=== PATIENT | female | born 1970 | race Caucasian/White ===

== ENCOUNTER 2020-09-12 15:01 | Outpatient (REF) | payer OTHER, SELFPAY ==
[2020-09-12 15:59] LABS: Creatinine Urine 15.86 mg/dL; Microalbumin Urine < 5.0 mg/L
== END 2020-09-12 15:02 | disposition home or self-care (01) ==
LOC: HO.LNP 15:01
PROVIDERS: Visit Provider Nurse Practitioner Family
DX: R35.0 Frequency of micturition (principal); E11.9 Type 2 diabetes mellitus without complications; N94.9 Unspecified condition associated with female genital organs and menstrual cycle
CPT/HCPCS: 82043; 87086; 88112

== ENCOUNTER 2022-02-14 07:42 | Outpatient (REF) | payer OTHER, SELFPAY ==
[2022-02-14 11:07] LABS: MANUAL DIFF FLAG NO
[2022-02-14 11:18] LABS: Appearance Urine CLEAR; Color Urine YELLOW; Glucose Urine UA NEG (NEG); Leukocyte Esterase Urine NEG (NEG); Nitrite Urine NEG (NEG); Specific Gravity - Urine 1.025 (1.005-1.025); Urine Blood NEG (NEG); Urine Ketones 5 MG/DL (NEG); Urine Protein TRACE MG/DL (NEG-TRACE)
[2022-02-14 11:19] LABS: Basophils Percent Auto 0.4 % (0-2); Eosinophils Absolute Auto 0.2 X10*3/uL (0.0-0.4); Eosinophils Percent Auto 2.2 % (0-4); Hematocrit 32.9 % (37.0-47.0); Hemoglobin 9.9 g/dl (12.0-16.0); Imm Gran Abs Auto 0.02 X10*3/uL (0.00-0.03); Imm Gran Pct Auto 0.3 % (0.0-0.4); Lymphocytes Absolute Auto 2.4 X10*3/uL (1.2-4.9); Lymphocytes Percent Auto 35.4 % (20-40); Mean Corpuscular HGB Conc 30.1 g/dl (31.0-35.0); Mean Corpuscular Hemoglobin 24.3 pg (27.0-33.0); Mean Corpuscular Volume 80.8 fL (80.0-98.0); Mean Platelet Volume 9.1 fL (9.4-12.3); Monocytes Absolute Auto 0.5 X10*3/uL (0.1-1.2); Monocytes Percent Auto 7.2 % (2-11); Neutrophils Absolute Auto 3.7 x10*3/uL (2.0-8.3); Neutrophils Percent Auto 54.5 % (45-73); Platelet Count 614 X10*3/uL (160-400); Red Blood Count 4.07 X10*6/uL (4.20-5.50); Red Cell Distribution Width 14.4 % (11.0-16.0); White Blood Count 6.8 X10*3/uL (4.8-10.8)
[2022-02-14 11:40] LABS: Iron 22 mcg/dL (30-160); Lipase 151 U/L (8-78); Percent Iron Saturation 5 % (15-50); Total Iron Binding Capacity 468 mcg/dL (228-428); Unsaturated Iron Binding 446 ug/dL
[2022-02-14 11:47] LABS: Estimated Average Glucose 154 mg/dL
[2022-02-14 11:48] LABS: Creatinine Urine 145.71 mg/dL
[2022-02-14 11:49] LABS: Ferritin 9 ng/mL (10-250)
[2022-02-14 11:51] LABS: HBS Num1 1.76 mIU/mL (0-7.99); HBsAGNum1 0.13 S/CO (0.00-0.99); HIV AB/AG Nonreactive (Nonreactive); HIV Num 1 0.06 S/CO (0.00-0.99); Hepatitis B Core Antibody Nonreactive (Nonreactive); Hepatitis B Surface Antigen Negative (Negative); ~HepC Num1 0.09 S/CO (0.00-0.79); ~Hepatitis B Surface Antibody NONREACTIVE (Nonreactive); ~Hepatitis C Antibody Nonreactive (Nonreactive)
[2022-02-14 12:03] LABS: Erythrocyte Sedimentation Rate 25 MM/HR (0-20)
[2022-02-14 12:08] LABS: Folate 6.3 ng/mL (> or = 4.0); Vitamin B12 261 pg/mL (200-900)
[2022-02-15 05:20] LABS: Hepatitis A Antibody IgM 0.32 Index (0-0.79); ~Hepatitis A Antibody IgM Nonreactive (Nonreactive)
== END 2022-02-14 07:43 | disposition home or self-care (01) ==
LOC: HO.HMGCLDS 07:42
PROVIDERS: Visit Provider Nurse Practitioner Family
DX: Z11.4 Encounter for screening for human immunodeficiency virus [HIV] (principal); R63.4 Abnormal weight loss; G25.81 Restless legs syndrome; E11.9 Type 2 diabetes mellitus without complications
CPT/HCPCS: 36415; 81003; 82043; 82607; 82728; 82746; 83036; 83540; 83690; 85025; 85652; 86140; 86704; 86706; 86709; 86803; 87340; 87389

== ENCOUNTER 2022-05-21 13:56 | Outpatient (REF) | payer OTHER, SELFPAY ==
[2022-05-21 17:22] LABS: Appearance Urine CLEAR; Color Urine YELLOW; Glucose Urine UA NEG (NEG); Leukocyte Esterase Urine TRACE (NEG); Nitrite Urine NEG (NEG); Specific Gravity - Urine >= 1.030 (1.005-1.025); Urine Blood 1+ (NEG); Urine Ketones NEG (NEG); Urine Protein NEG (NEG-TRACE)
[2022-05-21 17:45] LABS: Bacteria Urine 1+ /LPF; Squamous Epithelial Cell Urine 1+ /LPF
== END 2022-05-21 13:57 | disposition home or self-care (01) ==
LOC: HO.HMGCLDS 13:56
PROVIDERS: PCP Nurse Practitioner Family; Visit Provider Nurse Practitioner Family
DX: R35.0 Frequency of micturition (principal)
CPT/HCPCS: 81001; 87086

== ENCOUNTER → 2022-12-31 08:20 | Outpatient (BNVA) | payer OTHER, SELFPAY | PROVIDERS: PCP Nurse Practitioner Family; Visit Provider Psychiatry & Neurology Neurology | DX: G40.909 Epilepsy, unspecified, not intractable, without status epilepticus (principal) | CPT/HCPCS: 99202 ==

== ENCOUNTER 2023-02-10 09:08 | Outpatient (REF) | payer OTHER, SELFPAY ==
[2023-02-10 11:28] LABS: Appearance Urine Clear; Color Urine Yellow; Glucose Urine UA >=1000 mg/dL (Negative); Leukocyte Esterase Urine Negative (Negative); Nitrite Urine Negative (Negative); Specific Gravity - Urine >= 1.030 (1.005-1.025); UMIC TRIGGER UACC YES; Urine Blood Trace (Negative); Urine Ketones Negative (Negative); Urine Protein 30 (1+) mg/dL (Neg-Trace)
[2023-02-10 11:29] LABS: MANUAL DIFF FLAG NO
[2023-02-10 11:32] LABS: Bacteria Urine None Seen (None Seen); Hyaline Casts Urine 0-2 /LPF (0-2); RBC Urine 0-2 /HPF (0-2); Squamous Epithelial Cell Urine 0-2 /HPF (0-2); WBC Urine 0-5 /HPF (0-5)
[2023-02-10 11:37] LABS: Basophils Absolute Auto 0.1 X10*3/uL (0.0-0.2); Basophils Percent Auto 0.4 % (0-2); Eosinophils Absolute Auto 0.1 X10*3/uL (0.0-0.4); Eosinophils Percent Auto 0.7 % (0-4); Hematocrit 35.5 % (37.0-47.0); Hemoglobin 11.3 g/dl (12.0-16.0); Imm Gran Abs Auto 0.08 X10*3/uL (0.00-0.03); Imm Gran Pct Auto 0.6 % (0.0-0.4); Lymphocytes Absolute Auto 2.7 X10*3/uL (1.2-4.9); Lymphocytes Percent Auto 19.7 % (20-40); Mean Corpuscular HGB Conc 31.8 g/dl (31.0-35.0); Mean Corpuscular Volume 84.7 fL (80.0-98.0); Mean Platelet Volume 9.2 fL (9.4-12.3); Monocytes Absolute Auto 0.8 X10*3/uL (0.1-1.2); Monocytes Percent Auto 5.7 % (2-11); Neutrophils Absolute Auto 9.9 x10*3/uL (2.0-8.3); Neutrophils Percent Auto 72.9 % (45-73); Platelet Count 562 X10*3/uL (160-400); Red Blood Count 4.19 X10*6/uL (4.20-5.50); Red Cell Distribution Width 12.4 % (11.0-16.0); White Blood Count 13.6 X10*3/uL (4.8-10.8)
[2023-02-10 12:21] LABS: Creatinine Urine 102.55 mg/dL; Microalbum/Creatinine Ratio Ur 24.3 ug/mg cr
[2023-02-10 12:43] LABS: Alanine Aminotransferase < 5 U/L (0-31); Albumin Level 3.9 g/dL (3.5-5.0); Alkaline Phosphatase 111 U/L (39-117); Anion Gap 14 (12-20); Aspartate Amino Transferase 8 U/L (5-31); Bilirubin Total 0.2 mg/dL (0.0-1.0); Blood Urea Nitrogen 24 mg/dL (9-16); Calcium 9.2 mg/dL (8.4-10.2); Carbon Dioxide 31 mmol/L (22-29); Chloride 96 mmol/L (96-108); Cholesterol 110 mg/dL; Estimated Glomerular Filt Rate > 60; Glucose Fasting 205 mg/dL (60-99); HDL Cholesterol 46 mg/dL; LDL Cholesterol Calculated 52 mg/dl; Potassium 4.6 mmol/L (3.3-5.1); Sodium 136 mmol/L (135-145); TSH reflex Free T4 0.18 uIU/mL (0.32-4.0); Total Protein 6.5 g/dL (6.5-8.0); Triglycerides 62 mg/dL
[2023-02-10 12:47] LABS: Estimated Average Glucose 212 mg/dL
[2023-02-10 13:30] LABS: Free T4 (Free Thyroxine) 1.18 ng/dL (0.71-1.85)
== END 2023-02-10 09:09 | disposition home or self-care (01) ==
LOC: HO.HMGCLDS 09:08
PROVIDERS: PCP Nurse Practitioner Family; Visit Provider Nurse Practitioner Family
DX: E11.9 Type 2 diabetes mellitus without complications (principal)
CPT/HCPCS: 36415; 80053; 80061; 81001; 82043; 83036; 84439; 84443; 85025

== ENCOUNTER 2023-02-13 08:40 | Outpatient (REF) | payer OTHER, SELFPAY ==
[2023-02-13 11:25] LABS: Appearance Urine Cloudy; Color Urine Yellow; Glucose Urine UA 500 mg/dL (Negative); Leukocyte Esterase Urine Small (1+) (Negative); Nitrite Urine Negative (Negative); PH 5.5 (5.0-9.0); Specific Gravity - Urine 1.025 (1.005-1.025); UMIC TRIGGER UACC YES; Urine Blood Small (1+) (Negative); Urine Ketones Trace mg/dL (Negative); Urine Protein 100 (2+) mg/dL (Neg-Trace)
[2023-02-13 11:43] LABS: Bacteria Urine None Seen (None Seen); Hyaline Casts Urine >20 /LPF (0-2); Squamous Epithelial Cell Urine >20 /HPF (0-2); UACC Culture Trigger YES
[2023-02-13 12:33] LABS: Free T4 (Free Thyroxine) 1.13 ng/dL (0.71-1.85); TSH reflex Free T4 0.69 uIU/mL (0.32-4.0)
[2023-02-14 18:29] LABS: Thyroid Peroxidase Antibodies 1 IU/mL (<9)
[2023-02-17 23:48] LABS: A. Phagocytphilium DNA,RT-PCR NOT DETECTED (NOT DETECTED); Babesia Microti DNA, RT-PCR NOT DETECTED (NOT DETECTED); Borrelia Miyamotoi,DNA RT-PCR NOT DETECTED (NOT DETECTED); E.Chaffeensis DNA RT-PCR NOT DETECTED (NOT DETECTED); Lyme(Borrelia ssp)DNA RT-PCR NOT DETECTED (NOT DETECTED)
[2023-02-18 15:03] LABS: Thyrotropin Receptor Antibody <1.00 IU/L (<=2.00)
== END 2023-02-13 08:41 | disposition home or self-care (01) ==
LOC: HO.HMGCLDS 08:40
PROVIDERS: PCP Nurse Practitioner Family; Visit Provider Nurse Practitioner Family
DX: D72.829 Elevated white blood cell count, unspecified (principal); R94.6 Abnormal results of thyroid function studies; T14.8XXA Other injury of unspecified body region, initial encounter; W57.XXXA Bitten or stung by nonvenomous insect and other nonvenomous arthropods, initial encounter; R82.90 Unspecified abnormal findings in urine
CPT/HCPCS: 36415; 81001; 83520; 84439; 84443; 86376; 87086; 87798; 87801

== ENCOUNTER 2023-03-03 | Outpatient (REF) | payer OTHER, SELFPAY ==
--- NOTE | ~2023-03-03 | US_ITS ---
EXAMINATION: US THYROID CLINICAL INFORMATION: Low TSH level. COMPARISON: CT soft tissue neck with contrast 05/20/2019. Ultrasound thyroid 04/08/2017. TECHNIQUE: Linear transducer grayscale and color Doppler examination with attention to the region of the thyroid. FINDINGS: SIZE: Measurements of the thyroid lobes and nodules are given in sagittal, anteroposterior and transverse dimensions respectively. Right Thyroid Lobe: 4.9 x 1.6 x 1.4 cm, volume 5.7 mL. Previously 4.3 x 1.5 x 1.3 cm, volume 4.4 mL. Parenchyma: The gland echotexture is homogeneous. Thyroid vascularity is normal. Left Thyroid Lobe: 4.6 x 1.5 x 1.3 cm, volume 4.7 mL. Previously 4.5 x 1.5 x 1.4 cm, volume 4.9 mL. Parenchyma: The gland echotexture is homogeneous. Thyroid vascularity is normal. Isthmus: 0.3 cm in maximum AP dimension. Previously 0.2 cm. Estimated total number of nodules greater than or equal to 1 cm: 0. Gut Carrier nodules are described as follows: 1. Location: Right inferior. Size: 0.6 x 0.3 x 0.4 cm, volume 0.03 mL. Previously: 0.5 x 0.3 x 0.4 cm, volume 0.03 mL. Nodule characteristics: Composition: Solid (2). Echogenicity: Hypoechoic (2). Shape: Not taller than wide (0). Margins: Smooth (0). Echogenic Foci: None (0). ACR TI-RADS total points: 4 ACR TI-RADS category: 4 Significant change in size (>/= 20% in 2 dimensions and minimal increase of 2 mm or 50% or greater increase in volume): No Change in features: No Change in ACR TI-RADS risk category: No NODES: No lymphadenopathy is seen in the tissue surrounding the thyroid gland. US/US thyroid IMPRESSION: A 0.6 cm TR 4 right inferior thyroid nodule which is not significantly changed from 2017 and does not meet criteria for follow-up. Otherwise unremarkable thyroid ultrasound.. ACR TI-RADS RECOMMENDATION REFERENCE: Ultrasound-guided fine-needle aspiration, followup ultrasound, no further follow up. * TR1 (0 point) and TR2 (2 points): No FNA or follow up. * TR3 (3 points): FNA if more than or equal to 2.5 cm in maximum dimension, followup ultrasound in 1, 3 and 5 years if 1.5 to 2.4 cm in maximum dimension. * TR4 (4-6 points): FNA if more than or equal to 1.5 cm in maximum dimension, followup ultrasound in 1, 2, 3 and 5 years if 1 to 1.4 cm in maximum dimension. * TR5 (more than or equal to 7 points): FNA if more than or equal to 1 cm in maximum dimension, followup ultrasound every year for 5 years if 0.5 to 0.9 cm in maximum dimension. * TR3, TR4 or TR5 nodules that are below the size threshold for followup receive no follow up.
[2023-03-03 09:16] LABS: MANUAL DIFF FLAG NO
[2023-03-03 09:40] LABS: Basophils Percent Auto 0.3 % (0-2); Eosinophils Percent Auto 0.2 % (0-4); Hematocrit 40.5 % (37.0-47.0); Hemoglobin 12.9 g/dl (12.0-16.0); Imm Gran Abs Auto 0.02 X10*3/uL (0.00-0.03); Imm Gran Pct Auto 0.2 % (0.0-0.4); Lymphocytes Absolute Auto 2.9 X10*3/uL (1.2-4.9); Lymphocytes Percent Auto 28.6 % (20-40); Mean Corpuscular HGB Conc 31.9 g/dl (31.0-35.0); Mean Corpuscular Volume 84.7 fL (80.0-98.0); Mean Platelet Volume 8.6 fL (9.4-12.3); Monocytes Absolute Auto 0.7 X10*3/uL (0.1-1.2); Monocytes Percent Auto 6.7 % (2-11); Neutrophils Absolute Auto 6.5 x10*3/uL (2.0-8.3); Platelet Count 512 X10*3/uL (160-400); Red Blood Count 4.78 X10*6/uL (4.20-5.50); White Blood Count 10.2 X10*3/uL (4.8-10.8)
[2023-03-03 09:43] LABS: Urine Cytology See Pathology rpt
[2023-03-03 10:00] LABS: Appearance Urine Clear; Color Urine Dark Yellow; Glucose Urine UA Negative (Negative); Leukocyte Esterase Urine Small (1+) (Negative); Nitrite Urine Negative (Negative); PH 5.5 (5.0-9.0); Specific Gravity - Urine >= 1.030 (1.005-1.025); UMIC TRIGGER UA YES; Urine Blood Negative (Negative); Urine Ketones Trace mg/dL (Negative); Urine Protein 30 (1+) mg/dL (Neg-Trace)
[2023-03-03 10:07] LABS: Bacteria Urine None Seen (None Seen); RBC Urine 0-2 /HPF (0-2)
== END 2023-03-03 00:01 ==
LOC: HO.US
PROVIDERS: PCP Nurse Practitioner Family; Visit Provider Nurse Practitioner Family
DX: N39.0 Urinary tract infection, site not specified (principal); D72.829 Elevated white blood cell count, unspecified; R31.29 Other microscopic hematuria; R79.89 Other specified abnormal findings of blood chemistry
CPT/HCPCS: 36415; 76536; 81001; 85025; 87086; 88112

== ENCOUNTER 2023-05-21 08:44 | Outpatient (AMB) | payer OTHER, SELFPAY ==
[2023-05-21 09:04] VITALS: BP 120/72; PULSE 78; O2SAT 96; BMI 24.0
--- NOTE | 2023-05-21 09:04 | MHC.PC.OV ---
Vital Signs 05/21/23 09:04 Height 5 ft 0.75 in Weight 126 lb 4 oz BMI 24.0 BP 120/72 Blood Pressure Location Rt brachial Position Sitting Pulse 78 Pulse Source Pulse Oximeter Pulse Oximetry (%) 96 Oxygen Delivery Method Room Air Intake Visit Reasons: Annual PE Allergies moxifloxacin [From Avelox] Allergy (Unknown, Verified 05/21/23 09:06) hives Sulfa (Sulfonamide Antibiotics) Allergy (Unknown, Verified 05/21/23 09:06) hives doxycycline Adverse Reaction (Unknown, Verified 05/21/23 09:06) contraindicated Tobacco use date assessed: 05/21/23 Dental Screening Dental Screen Date: 05/21/23 Did you have a dental visit in the last 12 months?: Yes Did you have a dental problem in the last 6 months where you did not have access to dental care?: No Was dental information given to patient?: Patient has dentist HPI Annual PE HPI Details pt is here for a PE. diabetic. Currently on a statin. Knows s/s of hypoglycemia and how to correct it. Denies any polyuria, polydipsia, neuropathy. mammo ordered, pt missed last appointment, pt reports she will call. Pt reports having cologuard at home, has not performed it yet. Pt thinks she has a UTI, burning with urination, frequency. Pt reports her sugars have been perfect . Micro hem noted today in UA, sending for culture, previous urine cytology was neg, Hx of kidney stones, ordering a US. denies any fevers, chills, flank pains. [facility] Medical History Acute sinusitis Basal cell carcinoma Cervical neck pain with evidence of disc disease Chronic sinusitis Complaint of nasal congestion Diabetes Epilepsy Frontal headache Insomnia Nontraumatic incomplete tear of right rotator cuff Sinusitis, chronic Smoker Stroke Thyroid nodule Dawit's paralysis Ulcerative colitis Surgical History History of abdominal hysterectomy History of tonsillectomy and adenoidectomy Family History Father Esophageal cancer Prostate CA Mental health disorder Mother Uterine cancer Depression Mental health disorder Maternal Grandmother Kidney problem Maternal Grandfather Diabetes mellitus Stroke Throat cancer Myocardial infarction Paternal Grandfather No problems noted. Paternal Grandmother No problems noted. Brother No problems noted. Sister Mental health disorder Daughter No problems noted. Daughter No problems noted. Social History Housing: House Alcohol intake: current Alcohol intake frequency: a few times a month Patient Tobacco Use Status: Current everyday Tobacco user Cigarettes Per Day: 10 e-Cigarette/Vaping Use: Currently Using Second Hand Smoke Exposure: No service: No Current occupational status: disabled Cognitive needs: No Hearing needs: No Vision needs: No Questionnaire Thrive Questionnaire Date Thrive assessed: 02/13/23 MICAELA-7 AMB Questionnaire MICAELA-7 Date MICAELA - 7 assessed: 02/13/23 Source: Developed by Drs. Joss Gutierrez, Ami Hinton, Juan David Mercado and colleagues, with an educational emilie from [employer] Review of Systems Const Denies chills and Denies fever(s) Eyes Denies blurry vision ENT Denies vertigo, Denies dizziness and Denies sore throat Card Denies chest pain at rest, Denies chest pain with activity, Denies diaphoresis, Denies dyspnea and Denies dyspnea on exertion Resp Denies cough, Denies dyspnea, Denies dyspnea on exertion and Denies wheezing GI Denies abdominal pain, Denies melena, Denies hematochezia, Denies constipation, Denies diarrhea and Denies loose stools Denies hematuria Musc Denies numbness and Denies tingling Skin/Breast Denies lesions Neuro Denies vertigo, Denies dizziness, Denies numbness and Denies tingling Psych Denies anxiety, Denies depression, Denies homicidal ideation, Denies suicidal ideation and Denies other (substance abuse) Aller/Immun Denies wheezing Physical exam (Primary Care) Vital Signs: Last Vital Signs Pulse 78 05/21/23 09:04 BP 120/72 05/21/23 09:04 Pulse Ox 96 05/21/23 09:04 Oxygen Delivery Method Room Air 05/21/23 09:04 BMI result Body Mass Index 24.0 Tobacco/Smoking Status: Tobacco use Status Tobacco use date assessed 05/21/23 05/21/23 09:10 Patient Tobacco Use Status Current everyday Tobacco 05/21/23 09:04 e-Cigarette/Vaping Use Currently Using 05/21/23 09:04 Thrive Assessment: Date of Thrive Assessment Date Thrive assessed 02/13/23 05/21/23 09:04 Const General: cooperative Nutritional Appearance: well nourished Orientation/consciousness: patient oriented x3 HENME Other: bilat ear cerumen noted, after ear lavage Head: Yes normal to inspection, Yes normocephalic and Yes atraumatic Eyes General: appearance normal, both eyes and all related structures Alignment and Position: alignment normal and position normal Neck Neck: Yes normal visual inspection and Yes no lymphadenopathy Resp Effort & Inspection: normal respiratory effort Auscultation: clear to auscultation bilaterally Cardio Rate: regular rate Rhythm: regular rhythm Heart sounds: S1 normal heart sound present, S2 normal heart sound present and no murmurs GI Palpation (GI): Soft to palpation and nontender Auscultation: normal bowel sounds Skin Rashes: no rashes Neuro General: patient oriented x3, moves all extremities, no focal motor deficits and deep tendon reflexes 2+ bilaterally Romberg Test: Negative Extrem Right lower extremity: no edema Left lower extremity: no edema Psych Affect: normal affect Attitude: cooperative Thought process: Normal thought process present Results AMB Urinalysis, Automated UA Leukoctes 0 Babatunde/uL Last Edit by Marcela Tolentino CMA on 05/21/23 09:36 UA Nitrite Negative Last Edit by Marclea Tolentino CMA on 05/21/23 09:36 UA Urobilinogen 0.2 mg/dL Last Edit by Marcela Tolentino CMA on 05/21/23 09:36 UA Protein 0 mg/dL Last Edit by Marcela Tolentino CMA on 05/21/23 09:36 UA pH 6.0 Last Edit by Marcela Tolentino CMA on 05/21/23 09:36 UA Blood 25 Rocky/uL Last Edit by Marcela Tolentino CMA on 05/21/23 09:36 UA Specific [place] 1.015 Last Edit by Marcela Tolentino CMA on 05/21/23 09:36 UA Ketone Negative Last Edit by Marcela Tolentino CMA on 05/21/23 09:36 UA Bilirubin 0 mg/dL Last Edit by Marcela Tolentino CMA on 05/21/23 09:36 UA Glucose 0 mg/dL Last Edit by Marcela Tolentino CMA on 05/21/23 09:36 AMB Hemoglobin A1c AMB Hemoglobin A1c 6.7 % Last Edit by Marcela Tolentino CMA on 05/21/23 09:52 Results Reviewed Results Reviewed: Laboratory Last Values Hgb A1c (Clinic) 6.7 % (4.0-6.0) H 05/21/23 09:32 Urine pH (Auto) 6.0 05/21/23 09:32 Specific [place] (Auto) 1.015 05/21/23 09:32 Urine Protein (Auto) 0 mg/dL 05/21/23 09:32 Glucose (UA)(Auto) 0 mg/dL 05/21/23 09:32 Urine Ketones (Auto) Negative 05/21/23 09:32 Urine Blood (Auto) 25 Rocky/uL 05/21/23 09:32 Urine Nitrite (Auto) Negative 05/21/23 09:32 Urine Bilirubin (Auto) 0 mg/dL 05/21/23 09:32 Urine Urobilinogen (Auto) 0.2 mg/dL 05/21/23 09:32 Leukocyte Esterase (Auto) 0 Babatunde/uL 05/21/23 09:32 Assessment and Plan Assessment & Plan (1) Diabetes: Code(s): E11.9 - Type 2 diabetes mellitus without complications (2) Physical exam: Code(s): Z00.00 - Encounter for general adult medical examination without abnormal findings (3) Microscopic hematuria: Code(s): R31.29 - Other microscopic hematuria (4) Hx of renal calculi: Code(s): Z87.442 - Personal history of urinary calculi (5) UTI (urinary tract infection): Code(s): N39.0 - Urinary tract infection, site not specified (6) Impacted cerumen of both ears: Code(s): H61.23 - Impacted cerumen, bilateral (7) Vitamin D deficiency: Code(s): E55.9 - Vitamin D deficiency, unspecified Orders: Orders US retroperitoneal comp Today R31.29 - Other microscopic hematuria, Z87.442 - Personal history of urinary calculi Urine Culture Today N39.0 - Urinary tract infection, site not specified Comprehensive [place]. Panel Fast Today Z00.00 - Encounter for general adult medical examination without abnormal findings Lipid Panel Today Z00.00 - Encounter for general adult medical examination without abnormal findings TSH reflex Free T4 Today Z00.00 - Encounter for general adult medical examination without abnormal findings Complete Blood Count Auto Diff Today Z00.00 - Encounter for general adult medical examination without abnormal findings Vitamin D 25-OH Total Today E55.9 - Vitamin D deficiency, unspecified AMB Hemoglobin A1c Today E11.9 - Type 2 diabetes mellitus without complications, N39.0 - Urinary tract infection, site not specified AMB Urinalysis Automated Today N39.0 - Urinary tract infection, site not specified, R35.0 - Frequency of micturition Medications: New nitrofurantoin monohyd/m-cryst 100 mg (Macrobid) must administer with a meal/food 100 mg PO Q12H 10 caps 0RF 5 days Coding Level of Care Code Est Pt Prev Care 40-64y(37986) Diagnoses Diabetes E11.9 Physical exam Z00.00 Microscopic hematuria R31.29 Hx of renal calculi Z87.442 UTI (urinary tract infection) N39.0 Impacted cerumen of both ears H61.23 Vitamin D deficiency E55.9
== END 2023-05-21 11:10 | disposition home or self-care (01) ==
PROVIDERS: Visit Provider Nurse Practitioner Family
DX: Z00.00 Encounter for general adult medical examination without abnormal findings (principal); E11.9 Type 2 diabetes mellitus without complications; Z87.442 Personal history of urinary calculi; E55.9 Vitamin D deficiency, unspecified; R31.29 Other microscopic hematuria; N39.0 Urinary tract infection, site not specified; H61.23 Impacted cerumen, bilateral; R35.0 Frequency of micturition
CPT/HCPCS: 81003; 83036; 99396

== ENCOUNTER 2023-05-21 13:51 | Outpatient (REF) | payer OTHER, SELFPAY | END 2023-05-21 13:52 | disposition home or self-care (01) | LOC: HO.HMGCLNP 13:51 | PROVIDERS: Visit Provider Nurse Practitioner Family | DX: N39.0 Urinary tract infection, site not specified (principal) | CPT/HCPCS: 87086 ==

== ENCOUNTER 2023-06-24 12:57 | Outpatient (AMB) | payer OTHER, SELFPAY ==
--- NOTE | 2023-06-24 13:18 | A.OFFPC_ITS ---
Vital Signs 06/24/23 13:29 Height 5 ft 0.75 in Weight 129 lb 4 oz BMI 24.6 BP 110/64 Blood Pressure Location Lt brachial Position Sitting Pulse 85 Pulse Source Pulse Oximeter Temp 98.8 F Temp Source Oral Pulse Oximetry (%) 97 Oxygen Delivery Method Room Air Intake Visit Reasons: Covid symptoms/ sore [phone] Intake Note: pt has had a sore throat cough headache and ear ache for the last 3 days denies fever and today she started to loose her voice and feeling tired she has tried dayquil and nyquil with no relief Allergies moxifloxacin [From Avelox] Allergy (Unknown, Verified 05/21/23 09:06) hives Sulfa (Sulfonamide Antibiotics) Allergy (Unknown, Verified 05/21/23 09:06) hives doxycycline Adverse Reaction (Unknown, Verified 05/21/23 09:06) contraindicated Tobacco use date assessed: 05/21/23 HPI Covid symptoms/ sore [phone] HPI Details Pt c/o sneezing and congestion, was exposed to someone with covid. She denies any fever, chest pain, and shortness of breath. Pt does report intermittent chills and hot flashes. Will swab and COVID/flu/RSV and strep. [facility] Medical History (Updated 06/24/23 @ 14:47 by MIGUEL ANGEL Cardenas) Insomnia Frontal headache Complaint of nasal congestion Acute sinusitis Stroke Sinusitis, chronic Chronic sinusitis Nontraumatic incomplete tear of right rotator cuff Dawit's paralysis Cervical neck pain with evidence of disc disease Basal cell carcinoma Ulcerative colitis Thyroid nodule Diabetes Smoker Epilepsy Surgical History History of abdominal hysterectomy History of tonsillectomy and adenoidectomy Family History Father Esophageal cancer Prostate CA Mental health disorder Mother Uterine cancer Depression Mental health disorder Maternal Grandmother Kidney problem Maternal Grandfather Diabetes mellitus Stroke Throat cancer Myocardial infarction Paternal Grandfather No problems noted. Paternal Grandmother No problems noted. Brother No problems noted. Sister Mental health disorder Daughter No problems noted. Daughter No problems noted. Social History Housing: House Alcohol intake: current Alcohol intake frequency: a few times a month Patient Tobacco Use Status: Current everyday Tobacco user Cigarettes Per Day: 10 e-Cigarette/Vaping Use: Currently Using Second Hand Smoke Exposure: No service: No Current occupational status: disabled Cognitive needs: No Hearing needs: No Vision needs: No Questionnaire Thrive Questionnaire Date Thrive assessed: 02/13/23 MICAELA-7 AMB Questionnaire MICAELA-7 Date MICAELA - 7 assessed: 02/13/23 Source: Developed by Drs. Joss Gutierrez, Ami Hinton, Juan David Mercado and colleagues, with an educational emilie from [employer]. Review of Systems Const Reports as per HPI Physical exam (Primary Care) Vital Signs: Last Vital Signs Temp 98.8 F 06/24/23 13:29 Pulse 85 06/24/23 13:29 BP 110/64 06/24/23 13:29 Pulse Ox 97 06/24/23 13:29 Oxygen Delivery Method Room Air 06/24/23 13:29 BMI result Body Mass Index 24.6 Tobacco/Smoking Status: Tobacco use Status Tobacco use date assessed 05/21/23 06/24/23 13:21 Patient Tobacco Use Status Current everyday Tobacco 06/24/23 13:21 e-Cigarette/Vaping Use Currently Using 06/24/23 13:21 Thrive Assessment: Date of Thrive Assessment Date Thrive assessed 02/13/23 06/24/23 13:21 Const General: cooperative Orientation/consciousness: patient oriented x3 HENMT Ears: TM's normal bilaterally Neck Neck: Yes no lymphadenopathy Resp Effort & Inspection: normal respiratory effort Auscultation: clear to auscultation bilaterally Cardio Rate: regular rate Rhythm: regular rhythm Heart sounds: S1 normal heart sound present and S2 normal heart sound present Neuro General: patient oriented x3 Psych Appearance: grossly normal Mental Status: mental status grossly normal Speech and movement: Normal speech and movement present Affect: normal affect Attitude: cooperative Thought process: Normal thought process present Thought content: Normal thought content present Insight: Good insight present (Psych) Judgement: Good judgement present (Psych) Results AMB Rapid Strep AMB Rapid Strep Negative Last Edit by Marcela Tolentino CMA on 06/24/23 13 :57 Results Reviewed Results Reviewed: Laboratory Last Values Strep Scn Rapid Clinic Negative 06/24/23 13:55 Assessment and Plan Assessment & Plan (1) Illness: Code(s): R69 - Illness, unspecified Plan The patient agreed to the use of a senior medical billing specialist for this encounter. Scribed for MIGUEL ANGEL Wilkins by Mora Doss senior medical billing specialist, on 06/24/2023 at 13:30 EST. Orders: Orders SARS-CoV2/FLU/RSV Today R09.89 - Other specified symptoms and signs involving the circulatory and respiratory systems AMB Rapid Strep Screen Today Z13.9 - Encounter for screening, unspecified Coding Level of Care Code Est Pt Level 3 (12551) Diagnoses Illness R69
[2023-06-24 13:29] VITALS: BP 110/64; PULSE 85; TEMP 37.1; O2SAT 97; BMI 24.6
== END 2023-06-24 14:34 | disposition home or self-care (01) ==
PROVIDERS: PCP Nurse Practitioner Family; Visit Provider Nurse Practitioner Family
DX: J02.9 Acute pharyngitis, unspecified (principal); R51.9 Headache, unspecified; R69 Illness, unspecified
CPT/HCPCS: 87880; 99213

== ENCOUNTER 2023-06-24 16:08 | Outpatient (REF) | payer OTHER, SELFPAY ==
[2023-06-24 17:23] LABS: Influenza A PCR NEGATIVE (Negative); Influenza B PCR NEGATIVE (Negative); Resp Syncy Virus RNA Qual PCR NEGATIVE (Negative); SARS COV2 PCR INHOUSE NEGATIVE (Negative)
== END 2023-06-24 16:09 | disposition home or self-care (01) ==
LOC: HO.LNP 16:08
PROVIDERS: Visit Provider Nurse Practitioner Family
DX: R09.89 Other specified symptoms and signs involving the circulatory and respiratory systems (principal); Z20.822 Contact with and (suspected) exposure to COVID-19
CPT/HCPCS: 0241U

== ENCOUNTER 2023-07-28 08:48 | Outpatient (AMB) | payer OTHER, SELFPAY ==
[2023-07-28 09:59] VITALS: BP 122/78; PULSE 70; TEMP 36.7; O2SAT 97; BMI 24.8
--- NOTE | 2023-07-28 09:59 | MHC.OFFWIV ---
Intake Vital Signs 07/28/23 09:59 Height 5 ft 0.75 in Weight 130 lb BMI 24.8 BP 122/78 Blood Pressure Location Lt brachial Position Sitting Pulse 70 Pulse Source Pulse Oximeter Temp 98.0 F Temp Source Temporal Artery Scan Pulse Oximetry (%) 97 Intake Visit Reasons: EP UTI/Kidney [phone] Intake Note: pt is here for c/o possible uti Patient Tobacco Use Status: Current everyday Tobacco user Allergies moxifloxacin [From Avelox] Allergy (Unknown, Verified 07/28/23 10:28) hives Sulfa (Sulfonamide Antibiotics) Allergy (Unknown, Verified 07/28/23 10:28) hives doxycycline Adverse Reaction (Unknown, Verified 07/28/23 10:28) contraindicated Medication List - Last Reconciled 07/28/23 by Tyson Aiken MD albuterol sulfate 90 mcg/actuation 2 puffs inhalation Q6H PRN aripiprazole 10 mg PO DAILY 90 days aspirin 325 mg PO DAILY atorvastatin 40 mg PO BEDTIME blood sugar diagnostic (OneTouch Verio test strips) USE TO CHECK BLOOD GLUCOSE TWO TIMES A DAY BEFORE MEALS blood sugar diagnostic (OneTouch Verio test strips) check blood glucose tid ac and for hypo/hyperglycemic episodes ferrous sulfate 324 mg PO BID fexofenadine-pseudoephedrine 60-120 mg ER (Sofi-D 12 Hour) 1 tab PO .QD PRN fluticasone propionate 50 mcg/actuation 1 spray intranasal DAILY insulin degludec (Tresiba FlexTouch U-100 insulin) 14 units (0.14 mL) subcut BEDTIME 30 days lactobacillus combo no.11 (Probiotic) 1 cap PO DAILY lancets tid testing levetiracetam 1,500 mg (2 x 750 mg) PO BID metformin 1,000 mg PO BID pen needle, diabetic (Easy Touch) As directed to inject insulin once a day sertraline 150 mg (1.5 x 100 mg) PO DAILY suvorexant (Belsomra) 15 mg PO BEDTIME 30 days tizanidine 2 mg PO TID PRN Do you need a note to return to daycare/school/sports/work: Yes HPI EP UTI/Kidney [phone] HPI Details Patient presents for a sick visit. Reports symptoms of increased frequency of urination, burning on urination and discomfort in the suprapubic area. Symptoms started in the past few days. No fevers or chills. No nausea or vomiting. [facility] Medical History (Updated 07/28/23 @ 10:29 by Tyson Aiken MD) Insomnia Frontal headache Complaint of nasal congestion Acute sinusitis Stroke Sinusitis, chronic Chronic sinusitis Nontraumatic incomplete tear of right rotator cuff Dawit's paralysis Cervical neck pain with evidence of disc disease Basal cell carcinoma Ulcerative colitis Thyroid nodule Diabetes Smoker Epilepsy Surgical History (Reviewed 06/24/23 @ 14:46 by Zac De Leon [facility] History of abdominal hysterectomy History of tonsillectomy and adenoidectomy Family History Father Esophageal cancer Prostate CA Mental health disorder Mother Uterine cancer Depression Mental health disorder Maternal Grandmother Kidney problem Maternal Grandfather Diabetes mellitus Stroke Throat cancer Myocardial infarction Paternal Grandfather No problems noted. Paternal Grandmother No problems noted. Brother No problems noted. Sister Mental health disorder Daughter No problems noted. Daughter No problems noted. Social History Housing: House Alcohol intake: current Alcohol intake frequency: a few times a month Patient Tobacco Use Status: Current everyday Tobacco user Cigarettes Per Day: 10 e-Cigarette/Vaping Use: Currently Using Second Hand Smoke Exposure: No service: No Current occupational status: disabled Cognitive needs: No Hearing needs: No Vision needs: No Physical Exam Vital Signs: Last Vital Signs Temp 98.0 F 07/28/23 09:59 Pulse 70 07/28/23 09:59 BP 122/78 07/28/23 09:59 Pulse Ox 97 07/28/23 09:59 BMI result Body Mass Index 24.8 General: Yes bladder normal to palpation and Yes no CVA tenderness Bimanual exam- vagina & uterus: bladder normal to palpation Back/Spine/Pelvis Back: no CVA tenderness Results AMB Urinalysis, Automated UA Leukoctes 0 Babatunde/uL Last Edit by Srinivasa Lechuga CMA on 07/28/23 10:26 UA Nitrite Negative Last Edit by Srinivasa Lechuga CMA on 07/28/23 10:26 UA Urobilinogen 0.2 mg/dL Last Edit by Srinivasa Lechuga CMA on 07/28/23 10:26 UA Protein 15 mg/dL Last Edit by Srinivasa Lechuga CMA on 07/28/23 10:26 UA pH 5.5 Last Edit by Srinivasa Lechuga, JOSE on 07/28/23 10:26 UA Blood 10 Rocky/uL Last Edit by Srinivasa Lechuga CMA on 07/28/23 10:26 UA Specific [place] 1.025 Last Edit by Srinivasa Lechuga, JOSE on 07/28/23 10:26 UA Ketone Negative Last Edit by Srinivasa Lechuga CMA on 07/28/23 10:26 UA Bilirubin 0 mg/dL Last Edit by Srinivasa Lechuga CMA on 07/28/23 10:26 UA Glucose 0 mg/dL Last Edit by Srinivasa Lechuga CMA on 07/28/23 10:26 Results Reviewed Results Reviewed: Laboratory Last Values Urine pH (Auto) 5.5 07/28/23 10:25 Specific [place] (Auto) 1.025 07/28/23 10:25 Urine Protein (Auto) 15 mg/dL 07/28/23 10:25 Glucose (UA)(Auto) 0 mg/dL 07/28/23 10:25 Urine Ketones (Auto) Negative 07/28/23 10:25 Urine Blood (Auto) 10 Rocky/uL 07/28/23 10:25 Urine Nitrite (Auto) Negative 07/28/23 10:25 Urine Bilirubin (Auto) 0 mg/dL 07/28/23 10:25 Urine Urobilinogen (Auto) 0.2 mg/dL 07/28/23 10:25 Leukocyte Esterase (Auto) 0 Babatunde/uL 07/28/23 10:25 Assessment & Plan Assessment & Plan (1) UTI (urinary tract infection): Code(s): N39.0 - Urinary tract infection, site not specified Qualifiers: Urinary tract infection type: acute cystitis Hematuria presence: with hematuria Qualified Code(s): N30.01 - Acute cystitis with hematuria Plan: Take antibiotics and Pyridium as directed. Increase fluid intake. If symptoms of burning persist, new onset of fever or lower back pain, to follow-up at the clinic. Orders: Orders AMB Urinalysis Automated Today Z13.9 - Encounter for screening, unspecified Coding Level of Care Code Est Pt Level 3 (59670) Diagnoses Acute cystitis with hematuria N30.01 Urinary tract infection type: acute cystitis Hematuria presence: with hematuria
== END 2023-07-28 10:27 | disposition home or self-care (01) ==
PROVIDERS: PCP Nurse Practitioner Family; Visit Provider Internal Medicine
DX: Z13.9 Encounter for screening, unspecified (principal); N30.01 Acute cystitis with hematuria
CPT/HCPCS: 81003; 99213

== ENCOUNTER 2023-08-04 15:01 | Outpatient (AMB) | payer OTHER, SELFPAY ==
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
[2023-08-04 15:08] VITALS: BP 128/68; PULSE 81; O2SAT 93; BMI 25.2
== END 2023-08-04 17:11 | disposition home or self-care (01) ==
PROVIDERS: PCP Nurse Practitioner Family; Visit Provider Nurse Practitioner Family
DX: R35.0 Frequency of micturition (principal); R10.9 Unspecified abdominal pain; Z87.442 Personal history of urinary calculi
CPT/HCPCS: 81003; 99213

== ENCOUNTER 2023-08-04 15:38 | Outpatient (REF) | payer OTHER, SELFPAY ==
[2023-08-04 17:26] LABS: Appearance Urine Cloudy; Color Urine Yellow; Glucose Urine UA Negative (Negative); Leukocyte Esterase Urine Negative (Negative); Nitrite Urine Negative (Negative); PH 5.5 (5.0-9.0); Specific Gravity - Urine >= 1.030 (1.005-1.025); UMIC TRIGGER UA YES; Urine Blood Small (1+) (Negative); Urine Ketones Trace mg/dL (Negative); Urine Protein 100 (2+) mg/dL (Neg-Trace)
[2023-08-04 17:43] LABS: Bacteria Urine 1+ (None Seen); Calcium Oxalate Crystals Urine Present; Hyaline Casts Urine 0-2 /LPF (0-2); WBC Urine 0-5 /HPF (0-5)
== END 2023-08-04 15:39 | disposition home or self-care (01) ==
LOC: HO.LAB 15:38
PROVIDERS: Visit Provider Nurse Practitioner Family
DX: R10.9 Unspecified abdominal pain (principal); Z87.442 Personal history of urinary calculi
CPT/HCPCS: 81001; 87086

== ENCOUNTER 2023-08-05 12:17 | Outpatient (REF) | payer OTHER, SELFPAY ==
--- NOTE | ~2023-08-05 | US_ITS ---
EXAMINATION: US RETROPERITONEAL COMPLETE (RENAL) CLINICAL INFORMATION: Unspecified abdominal pain Flank pain History of urinary calculi. COMPARISON: CT scan abdomen and pelvis 05/27/2019, MRI abdomen 06/18/2019 TECHNIQUE: Real-time imaging of the kidneys and bladder. FINDINGS: RIGHT KIDNEY: 12.6 x 5.0 x 5.4 cm (SAG x AP x TRV. Lobulated contour, a normal variant. Renal cortical thickness is normal. No calculi or focal parenchymal lesions. There is a small amount of pelvicaliectasis without isidro hydronephrosis. LEFT KIDNEY: 10.1 x 5.7 x 5.3 cm (SAG x AP x TRV). Lobulated contour, a normal variant Renal cortical thickness is normal. No calculi or focal parenchymal lesions. No hydronephrosis. BLADDER: Well distended and normal. Bilateral ureteral jets are demonstrated. Prevoid bladder volume is 426 mL. Postvoid bladder volume is 19 mL. US/US retroperitoneal comp IMPRESSION: 1. No significant abnormality of the left kidney. 2. Small amount of pelvicaliectasis in the right kidney without isidro hydronephrosis. 3. Small post void residual.
[2023-08-05 13:34] LABS: MANUAL DIFF FLAG NO
[2023-08-05 13:55] LABS: Basophils Absolute Auto 0.1 X10*3/uL (0.0-0.2); Basophils Percent Auto 0.5 % (0-2); Eosinophils Absolute Auto 0.2 X10*3/uL (0.0-0.4); Eosinophils Percent Auto 1.9 % (0-4); Hematocrit 38.5 % (37.0-47.0); Hemoglobin 12.5 g/dl (12.0-16.0); Imm Gran Abs Auto 0.06 X10*3/uL (0.00-0.03); Imm Gran Pct Auto 0.5 % (0.0-0.4); Lymphocytes Absolute Auto 3.3 X10*3/uL (1.2-4.9); Lymphocytes Percent Auto 28.9 % (20-40); Mean Corpuscular HGB Conc 32.5 g/dl (31.0-35.0); Mean Corpuscular Hemoglobin 28.1 pg (27.0-33.0); Mean Corpuscular Volume 86.5 fL (80.0-98.0); Monocytes Absolute Auto 0.7 X10*3/uL (0.1-1.2); Monocytes Percent Auto 6.1 % (2-11); Neutrophils Absolute Auto 7.2 x10*3/uL (2.0-8.3); Neutrophils Percent Auto 62.1 % (45-73); Platelet Count 470 X10*3/uL (160-400); Red Blood Count 4.45 X10*6/uL (4.20-5.50); Red Cell Distribution Width 13.5 % (11.0-16.0); White Blood Count 11.6 X10*3/uL (4.8-10.8)
[2023-08-05 14:52] LABS: Alanine Aminotransferase 12 U/L (0-31); Albumin Level 4.3 g/dL (3.5-5.0); Alkaline Phosphatase 102 U/L (39-117); Anion Gap 14 (12-20); Aspartate Amino Transferase 13 U/L (5-31); Bilirubin Total 0.2 mg/dL (0.0-1.0); Blood Urea Nitrogen 15 mg/dL (9-16); Calcium 9.3 mg/dL (8.4-10.2); Carbon Dioxide 24 mmol/L (22-29); Chloride 105 mmol/L (96-108); Cholesterol 142 mg/dL (<200); Estimated Glomerular Filt Rate > 60; Glucose Fasting 222 mg/dL (60-99); HDL Cholesterol 71 mg/dL (>40); LDL Cholesterol Calculated 53 mg/dL (<100); Potassium 4.5 mmol/L (3.3-5.1); Sodium 138 mmol/L (135-145); Total Protein 7.4 g/dL (6.5-8.0); Triglycerides 91 mg/dL (<150)
[2023-08-05 15:11] LABS: TSH reflex Free T4 0.46 uIU/mL (0.32-4.0); Vitamin D 25-OH Total 29.3 ng/mL (>30)
[2023-08-05 16:43] LABS: Appearance Urine Clear; Color Urine Yellow; Glucose Urine UA 100 mg/dL (Negative); Leukocyte Esterase Urine Negative (Negative); Nitrite Urine Negative (Negative); PH 5.5 (5.0-9.0); Specific Gravity - Urine <= 1.005 (1.005-1.025); UMIC TRIGGER UA YES; Urine Blood Trace (Negative); Urine Ketones Negative (Negative); Urine Protein Negative (Neg-Trace)
[2023-08-05 18:25] LABS: Bacteria Urine None Seen (None Seen); Hyaline Casts Urine 0-2 /LPF (0-2); RBC Urine 0-2 /HPF (0-2); WBC Urine 0-5 /HPF (0-5)
== END 2023-08-05 12:18 | disposition home or self-care (01) ==
LOC: HO.HMGCX 12:17
PROVIDERS: PCP Nurse Practitioner Family; Visit Provider Nurse Practitioner Family
DX: Z00.00 Encounter for general adult medical examination without abnormal findings (principal); R10.9 Unspecified abdominal pain; E55.9 Vitamin D deficiency, unspecified; Z87.442 Personal history of urinary calculi; E78.5 Hyperlipidemia, unspecified; R94.6 Abnormal results of thyroid function studies
CPT/HCPCS: 36415; 76770; 80053; 80061; 81001; 82306; 84443; 85025

== ENCOUNTER 2023-08-20 08:06 | Outpatient (REF) | payer OTHER, SELFPAY ==
[2023-08-20 11:20] LABS: Appearance Urine Clear; Color Urine Yellow; Glucose Urine UA Negative (Negative); Leukocyte Esterase Urine Negative (Negative); Nitrite Urine Negative (Negative); PH 5.5 (5.0-9.0); UMIC TRIGGER UA YES; Urine Blood Trace (Negative); Urine Ketones Negative (Negative); Urine Protein Negative (Neg-Trace)
[2023-08-20 11:24] LABS: Bacteria Urine None Seen (None Seen); Hyaline Casts Urine 0-2 /LPF (0-2); RBC Urine 0-2 /HPF (0-2); Squamous Epithelial Cell Urine 0-2 /HPF (0-2); WBC Urine 0-5 /HPF (0-5)
== END 2023-08-20 08:07 | disposition home or self-care (01) ==
LOC: HO.HMGCLDS 08:06
PROVIDERS: PCP Nurse Practitioner Family; Visit Provider Nurse Practitioner Family
DX: R30.0 Dysuria (principal)
CPT/HCPCS: 81001; 87086

== ENCOUNTER 2023-10-08 08:49 | Outpatient (REF) | payer OTHER, SELFPAY ==
[2023-10-08 16:55] LABS: Urine Cytology See Pathology rpt
== END 2023-10-08 08:50 | disposition home or self-care (01) ==
LOC: HO.LNP 08:49
PROVIDERS: PCP Nurse Practitioner Family; Visit Provider Nurse Practitioner Family
DX: R31.29 Other microscopic hematuria (principal); R39.15 Urgency of urination; Z79.82 Long term (current) use of aspirin; Z79.899 Other long term (current) drug therapy
CPT/HCPCS: 81003; 88112; 99202

== ENCOUNTER 2023-10-08 08:49 | Outpatient (AMB) | payer OTHER, SELFPAY ==
--- NOTE | 2023-10-08 08:57 | MHC.OFFVIS ---
Intake Intake Visit Reasons: Micro hematuria Intake Note: New Patient presents for initial visit for micro hematuria Urology Medications: none Blood Thinner: aspirin Smoker: yes, 30yrs Cash Shortage Investigator Required: No Accompanied by: daughters Allergies moxifloxacin [From Avelox] Allergy (Unknown, Verified 10/09/23 19:41) hives Sulfa (Sulfonamide Antibiotics) Allergy (Unknown, Verified 10/09/23 19:41) hives doxycycline Adverse Reaction (Unknown, Verified 10/09/23 19:41) contraindicated Medication List - Last Reconciled 10/09/23 by FREDERICK JuddP- albuterol sulfate 90 mcg/actuation 2 puffs inhalation Q6H PRN aripiprazole 10 mg PO DAILY 90 days aspirin 325 mg PO DAILY atorvastatin 40 mg PO BEDTIME blood sugar diagnostic (Nexstimuch Verio test strips) check blood glucose tid ac and for hypo/hyperglycemic episodes ferrous sulfate 324 mg PO BID fexofenadine-pseudoephedrine 60-120 mg ER (Sofi-D 12 Hour) 1 tab PO .QD PRN fluticasone propionate 50 mcg/actuation 1 spray intranasal DAILY insulin degludec (Tresiba FlexTouch U-100 insulin) 14 units (0.14 mL) subcut BEDTIME lactobacillus combo no.11 (Probiotic) 1 cap PO DAILY lancets tid testing levetiracetam 1,500 mg (2 x 750 mg) PO BID metformin 1,000 mg PO BID pen needle, diabetic (Easy Touch) As directed to inject insulin once a day phenazopyridine (Pyridium) 200 mg PO TID 3 days sertraline 150 mg (1.5 x 100 mg) PO DAILY suvorexant (Belsomra) 15 mg PO BEDTIME 30 days HPI HPI Comments History of Present Illness Details Lupe is a very pleasant 53-year-old female patient of who was accompanied by her daughters at today's office visit. She has a past medical history of insomnia, headaches, stroke, chronic sinusitis, basal cell carcinoma, ulcerative colitis, diabetes, nicotine dependence, and epilepsy. She presents to the office today as a new patient for microscopic hematuria. When asked patient reports a longstanding history of nicotine dependence of over 30 years. She reports to be smoking approximately 1 pack per day. She denies any known chemical exposure. She currently denies any bothersome urinary issues or concerns. She denies urinary urgency, urinary frequency, incontinence, nocturia, hematuria, dysuria, foul smelling urine, changes to urinary stream, flank pain, fever, and or chills. She is happy with her current voiding parameters. In office urinalysis results reviewed with the patient today microscopic hematuria noted. Discussed at length potential causes of microscopic hematuria as well as further microscopic hematuria workup with in office cystoscopy, CT urogram, and urine cytology. Discussed risks and benefits of further workup versus surveillance monitoring. All questions were answered. [facility] Medical History Insomnia Frontal headache Complaint of nasal congestion Acute sinusitis Stroke Sinusitis, chronic Chronic sinusitis Nontraumatic incomplete tear of right rotator cuff Dawit's paralysis Cervical neck pain with evidence of disc disease Basal cell carcinoma Ulcerative colitis Thyroid nodule Diabetes Smoker Epilepsy Surgical History History of abdominal hysterectomy History of tonsillectomy and adenoidectomy Family History Father Esophageal cancer Prostate CA Mental health disorder Mother Uterine cancer Depression Mental health disorder Maternal Grandmother Kidney problem Maternal Grandfather Diabetes mellitus Stroke Throat cancer Myocardial infarction Paternal Grandfather No problems noted. Paternal Grandmother No problems noted. Brother No problems noted. Sister Mental health disorder Daughter No problems noted. Daughter No problems noted. Social History Housing: House Alcohol intake: current Alcohol intake frequency: a few times a month Patient Tobacco Use Status: Current everyday Tobacco user Cigarettes Per Day: 10 e-Cigarette/Vaping Use: Currently Using Second Hand Smoke Exposure: No service: No Current occupational status: disabled Cognitive needs: No Hearing needs: No Vision needs: No Review of Systems Const Reports as per HPI Eyes Reports no additional complaints ENT Reports as per HPI Card Reports as per HPI Resp Reports as per HPI GI Reports as per HPI Reports as per HPI Musc Reports no additional complaints Neuro Reports as per HPI Psych Reports no additional complaints Endo Reports as per HPI Physical Exam Const General: cooperative, comfortable, no acute distress, well developed, alert and awake Orientation/consciousness: patient oriented x3 HEENT Head: Yes normal to inspection, Yes normocephalic and Yes atraumatic Ears: hearing grossly normal bilaterally Eyes General: appearance normal, both eyes and all related structures Neck Neck: Yes normal visual inspection and Yes trachea midline Chest Chest palpation & inspection: normal inspection of the chest Resp Effort & Inspection: normal respiratory effort and able to speak in complete sentences Cardio Rate: regular rate GI Inspection: Yes normal to inspection General: Yes no CVA tenderness Back/Spine/Pelvis Back: no CVA tenderness Skin General skin exam: no rashes or lesions noted Neuro General: patient oriented x3 Extrem General: Yes normal to inspection Psych Appearance: grossly normal and well kempt Mental Status: mental status grossly normal Speech and movement: Normal speech and movement present and Clear speech present Affect: normal affect Attitude: cooperative Thought process: Normal thought process present Thought content: Normal thought content present Results AMB Urinalysis, Automated UA Leukoctes 0 Babatunde/uL Last Edit by [employer] on 10/08/23 09:15 UA Nitrite Negative Last Edit by [employer] on 10/08/23 09:15 UA Urobilinogen 0.2 mg/dL Last Edit by [employer] on 10/08/23 09:15 UA Protein 0 mg/dL Last Edit by [employer] on 10/08/23 09:15 UA pH 6.0 Last Edit by [employer] on 10/08/23 09:15 UA Blood 25 Rocky/uL Last Edit by [employer] on 10/08/23 09:15 UA Specific [place] 1.015 Last Edit by [employer] on 10/08/23 09:15 UA Ketone Negative Last Edit by [employer] on 10/08/23 09:15 UA Bilirubin 0 mg/dL Last Edit by [employer] on 10/08/23 09:15 UA Glucose 0 mg/dL Last Edit by [employer] on 10/08/23 09:15 Results Reviewed Results Reviewed: Laboratory Last Values Urine pH (Auto) 6.0 10/08/23 09:01 Specific [place] (Auto) 1.015 10/08/23 09:01 Urine Protein (Auto) 0 mg/dL 10/08/23 09:01 Glucose (UA)(Auto) 0 mg/dL 10/08/23 09:01 Urine Ketones (Auto) Negative 10/08/23 09:01 Urine Blood (Auto) 25 [place]/uL 10/08/23 09:01 Urine Nitrite (Auto) Negative 10/08/23 09:01 Urine Bilirubin (Auto) 0 mg/dL 10/08/23 09:01 Urine Urobilinogen (Auto) 0.2 mg/dL 10/08/23 09:01 Leukocyte Esterase (Auto) 0 Babatunde/uL 10/08/23 09:01 Assessment & Plan Assessment & Plan (1) Microscopic hematuria: Code(s): R31.29 - Other microscopic hematuria Plan In office urinalysis results reviewed with the patient today; as noted above; will send for urine cytology. Online discussed at length potential causes of microscopic hematuria; discussed further workup with CT urogram, cytology, and in office cystoscopy; discussed risks and benefits of surveillance monitoring verses further microscopic hematuria workup. She currently denies any bothersome urinary issues or concerns. Discussed and stressed the importance of limiting/quitting smoking for overall health and well-being. Will obtain CT urogram for further assessment evaluation. BUN and creatinine ordered for imaging. Follow-up in office cystoscopy with labs and imaging to be completed prior; or sooner with any issues, concerns, and or questions. Orders: Orders AMB Urinalysis Automated 10/08/23 Z13.9 - Encounter for screening, unspecified Blood Urea Nitrogen 10/08/23 R39.15 - Urgency of urination Creatinine 10/08/23 R39.15 - Urgency of urination Urine Cytology 10/08/23 R31.29 - Other microscopic hematuria CT urogram 10/08/23 F17.200 - Nicotine dependence, unspecified, uncomplicated, R31.29 - Other microscopic hematuria Patient Instructions: The patient had an opportunity to ask questions regarding the treatment plan. All questions were answered. Physical exam, labs, and imaging were discussed and reviewed in detail. As well as risks, benefits, and discussion of treatment choices. No major barriers to understanding were identified. The patient expressed understanding and agreement with the above treatment plan. The patient was made aware they should contact our office by phone for worsening of their current condition, the appearance of new symptoms, or with any questions or concerns. Compliance is encouraged with any medications and follow up testing that is ordered. It is a privilege to be allowed the opportunity to participate in? your urological care.? Again, if you have any questions or concerns If you have any questions or concerns please do not hesitate to contact me. The office is [phone]. This note is constructed using voice recognition software. While every effort has been made to ensure accuracy slicing machine operator errors may have been included. Yours sincerely, MIGUEL ANGEL Judd Coding Level of Care Code New Pt Level 3 (30224) Diagnoses Microscopic hematuria R31.29
== END 2023-10-08 09:38 | disposition home or self-care (01) ==
PROVIDERS: PCP Nurse Practitioner Family; Visit Provider Nurse Practitioner Family
DX: R31.29 Other microscopic hematuria (principal)
CPT/HCPCS: 99203

== ENCOUNTER 2023-11-10 13:04 | Outpatient (REF) | payer OTHER, SELFPAY ==
[2023-11-10 16:03] LABS: MANUAL DIFF FLAG NO
[2023-11-10 16:03] LABS: Appearance Urine Cloudy; Color Urine Dark Yellow; Glucose Urine UA Negative (Negative); Leukocyte Esterase Urine Negative (Negative); Nitrite Urine Negative (Negative); Specific Gravity - Urine >= 1.030 (1.005-1.025); Urine Blood Negative (Negative); Urine Ketones Trace mg/dL (Negative); Urine Protein Trace mg/dL (Neg-Trace)
[2023-11-10 16:22] LABS: Basophils Absolute Auto 0.1 X10*3/uL (0.0-0.2); Basophils Percent Auto 0.5 % (0-2); Eosinophils Absolute Auto 0.2 X10*3/uL (0.0-0.4); Eosinophils Percent Auto 1.9 % (0-4); Hematocrit 39.2 % (37.0-47.0); Imm Gran Abs Auto 0.05 X10*3/uL (0.00-0.03); Imm Gran Pct Auto 0.5 % (0.0-0.4); Lymphocytes Absolute Auto 3.6 X10*3/uL (1.2-4.9); Lymphocytes Percent Auto 35.8 % (20-40); Mean Corpuscular HGB Conc 33.2 g/dl (31.0-35.0); Mean Corpuscular Hemoglobin 29.9 pg (27.0-33.0); Mean Corpuscular Volume 90.1 fL (80.0-98.0); Mean Platelet Volume 9.5 fL (9.4-12.3); Monocytes Absolute Auto 0.7 X10*3/uL (0.1-1.2); Monocytes Percent Auto 6.6 % (2-11); Neutrophils Absolute Auto 5.6 x10*3/uL (2.0-8.3); Neutrophils Percent Auto 54.7 % (45-73); Platelet Count 513 X10*3/uL (160-400); Red Blood Count 4.35 X10*6/uL (4.20-5.50); Red Cell Distribution Width 12.7 % (11.0-16.0); White Blood Count 10.2 X10*3/uL (4.8-10.8)
[2023-11-10 16:38] LABS: Alanine Aminotransferase 13 U/L (0-31); Albumin Level 4.2 g/dL (3.5-5.0); Alkaline Phosphatase 95 U/L (39-117); Anion Gap 15 (12-20); Aspartate Amino Transferase 12 U/L (5-31); Bilirubin Total 0.2 mg/dL (0.0-1.0); Blood Urea Nitrogen 16 mg/dL (9-16); Calcium 9.3 mg/dL (8.4-10.2); Carbon Dioxide 26 mmol/L (22-29); Chloride 103 mmol/L (96-108); Cholesterol 180 mg/dL (<200); Estimated Glomerular Filt Rate > 60; Glucose Fasting 123 mg/dL (60-99); HDL Cholesterol 87 mg/dL (>40); LDL Cholesterol Calculated 73 mg/dL (<100); Potassium 4.2 mmol/L (3.3-5.1); Sodium 140 mmol/L (135-145); Total Protein 7.3 g/dL (6.5-8.0); Triglycerides 100 mg/dL (<150)
[2023-11-10 16:41] LABS: TSH reflex Free T4 0.36 uIU/mL (0.32-4.0)
== END 2023-11-10 13:05 | disposition home or self-care (01) ==
LOC: HO.HMGCLDS 13:04
PROVIDERS: PCP Nurse Practitioner Family; Referring Provider Nurse Practitioner Family; Visit Provider Nurse Practitioner Family
DX: Z00.00 Encounter for general adult medical examination without abnormal findings (principal); Z13.220 Encounter for screening for lipoid disorders; Z13.29 Encounter for screening for other suspected endocrine disorder; R39.15 Urgency of urination
CPT/HCPCS: 36415; 80053; 80061; 81003; 84443; 85025

== ENCOUNTER 2023-11-19 08:20 | Outpatient (REF) | payer OTHER, SELFPAY ==
--- NOTE | ~2023-11-19 | CT_ITS ---
EXAMINATION: CT ABDOMEN AND PELVIS WITHOUT AND WITH CONTRAST CLINICAL INFORMATION: Microscopic hematuria COMPARISON: Previous renal ultrasound July 2023, CT scan of the abdomen and pelvis May 2019 and MRI June 2019 TECHNIQUE: Noncontrast CT of the abdomen and pelvis is performed followed by split bolus contrast-enhanced images using 100 mL Omnipaque 350 contrast.? Postcontrast imaging is performed during the combined nephrogram and excretion phase. Sagittal and coronal reformatted images were obtained on the technologist's workstation for both the precontrast and postcontrast phases. This CT examination was performed using dose optimization techniques as appropriate, variously including the following: *Automated exposure control *Adjustment of mA and/or kV according to patient size (this includes techniques or standardized protocols for targeted exams where dose is matched to indication/reason for exam; i.e. extremities or head) *Use of iterative reconstruction technique DLP: 521 mGy-cm FINDINGS: LUNG BASES: The visualized lung bases are unremarkable. LIVER, GALLBLADDER, AND BILIARY TREE: The liver is normal in size, shape, and attenuation. No focal hepatic lesion or biliary ductal dilatation is present. May be a tiny gallstone in the gallbladder. The gallbladder is otherwise unremarkable. PANCREAS: Unremarkable. SPLEEN: Unremarkable. ADRENAL GLANDS: Slight thickening of the posterior limb of the left adrenal gland similar to prior exam. Right adrenal gland is unremarkable. KIDNEYS AND URETERS: The kidneys are normal in size, shape, and attenuation. No hydronephrosis, hydroureter, or calculi seen. The collecting systems are normal. The ureters are normal. No perinephric stranding. BLADDER: Unremarkable. GASTROINTESTINAL TRACT: Mild diverticulosis of the colon. No evidence of diverticulitis. The small and large bowel are otherwise unremarkable. The appendix is not seen. ABDOMINAL WALL: No significant hernia is appreciated. LYMPH NODES: Normal. VASCULAR: Unremarkable. PELVIC VISCERA: Uterus not seen and may been removed. No pelvic mass. OSSEUS STRUCTURES: Unremarkable. CT/CT urogram IMPRESSION: Normal CT IVP. No cause of hematuria seen. Mild diverticulosis of the colon. Tiny gallstone in the gallbladder. Stable thickening of the posterior limb of the left adrenal gland from prior exams.
[2023-11-19] MEDS: iohexoL 350 MG/ML 100 ML INFUS..BTL IV (09:39)
== END 2023-11-19 08:21 | disposition home or self-care (01) ==
LOC: HO.CT 08:20
PROVIDERS: PCP Nurse Practitioner Family; Visit Provider Nurse Practitioner Family
DX: R31.29 Other microscopic hematuria (principal); F17.200 Nicotine dependence, unspecified, uncomplicated
CPT/HCPCS: 74178; Q9967

== ENCOUNTER 2023-12-17 14:36 | Outpatient (AMB) | payer OTHER, SELFPAY ==
--- NOTE | 2023-12-17 14:37 | A.OFFVIS_ITS ---
Intake Intake Visit Reasons: CT Urogram Results (confirmed) Intake Note: Patient presents via phone for CT Urogram Results: Urology Medications: none Blood Thinner: aspirin Smoker: yes, 30yrs Pharmacy Account Director Required: No Accompanied by: daughters Allergies moxifloxacin [From Avelox] Allergy (Unknown, Verified 10/09/23 19:41) hives Sulfa (Sulfonamide Antibiotics) Allergy (Unknown, Verified 10/09/23 19:41) hives doxycycline Adverse Reaction (Unknown, Verified 10/09/23 19:41) contraindicated HPI HPI Comments History of Present Illness Details 12/17/2023--Lupe is a 53-year-old female who is being evaluated for microscopic hematuria. Comorbidity nicotine dependence, the patient smokes cigarettes daily. She presents for telehealth visit (video attempted) to review CT scan results. I have reviewed the CT urogram that was performed on 11/19/2023. Kidneys within normal limits, no masses renal calculi visualized, bladder unremarkable. Also reviewed urine cytology performed on 10/01/2023 which was negative for malignant cells. Plan will be to have her follow-up in the office for office cystoscopy. Discussed recommendations for nicotine cessation. Review of chart: 10/08/2023-- Lupe is a very pleasant 53 -year-old female patient of who was accompanied by her daughters at today's office visit. She has a past medical history of insomnia, headaches, stroke, chronic sinusitis, basal cell carcinoma, ulcerative colitis, diabetes, nicotine dependence, and epilepsy. She presents to the office today as a new patient for microscopic hematuria. When asked patient reports a longstanding history of nicotine dependence of over 30 years. She reports to be smoking approximately 1 pack per day. She denies any known chemical exposure. She currently denies any bothersome urinary issues or concerns. She denies urinary urgency, urinary frequency, incontinence, nocturia, hematuria, dysuria, foul smelling urine, changes to urinary stream, flank pain, fever, and or chills. She is happy with her current voiding parameters. In office urinalysis results reviewed with the patient today microscopic hematuria noted. Discussed at length potential causes of microscopic hematuria as well as further microscopic hematuria workup with in office cystoscopy, CT urogram, and urine cytology. Discussed risks and benefits of further workup versus surveillance monitoring. All questions were answered. 12/17/23--PLAN: Schedule follow-up office cystoscopy. 21 minutes in review of this chart inclu ding x-ray results and discussion with the patient. [facility] Medical History Insomnia Frontal headache Complaint of nasal congestion Acute sinusitis Stroke Sinusitis, chronic Chronic sinusitis Nontraumatic incomplete tear of right rotator cuff Dawit's paralysis Cervical neck pain with evidence of disc disease Basal cell carcinoma Ulcerative colitis Thyroid nodule Diabetes Smoker Epilepsy Surgical History History of abdominal hysterectomy History of tonsillectomy and adenoidectomy Family History Father Esophageal cancer Prostate CA Mental health disorder Mother Uterine cancer Depression Mental health disorder Maternal Grandmother Kidney problem Maternal Grandfather Diabetes mellitus Stroke Throat cancer Myocardial infarction Paternal Grandfather No problems noted. Paternal Grandmother No problems noted. Brother No problems noted. Sister Mental health disorder Daughter No problems noted. Daughter No problems noted. Social History Housing: House Alcohol intake: current Alcohol intake frequency: a few times a month Patient Tobacco Use Status: Current everyday Tobacco user Cigarettes Per Day: 10 e-Cigarette/Vaping Use: Currently Using Second Hand Smoke Exposure: No service: No Current occupational status: disabled Cognitive needs: No Hearing needs: No Vision needs: No Review of Systems Const Reports as per HPI Eyes Reports no additional complaints ENT Reports as per HPI Card Reports as per HPI Resp Reports as per HPI GI Reports as per HPI Reports as per HPI Musc Reports no additional complaints Neuro Reports as per HPI Psych Reports no additional complaints Endo Reports as per HPI Results Reviewed Results Reviewed: Date of Service: 11/19/23 EXAMINATION: CT ABDOMEN AND PELVIS WITHOUT AND WITH CONTRAST CLINICAL INFORMATION: Microscopic hematuria COMPARISON: Previous renal ultrasound July 2023, CT scan of the abdomen and pelvis May 2019 and MRI June 2019 TECHNIQUE: Noncontrast CT of the abdomen and pelvis is performed followed by split bolus contrast-enhanced images using 100 mL Omnipaque 350 contrast.? Postcontrast imaging is performed during the combined nephrogram and excretion phase. Sagittal and coronal reformatted images were obtained on the technologist's workstation for both the precontrast and postcontrast phases. This CT examination was performed using dose optimization techniques as appropriate, variously including the following: *Automated exposure control *Adjustment of mA and/or kV according to patient size (this includes techniques or standardized protocols for targeted exams where dose is matched to indication/reason for exam; i.e. extremities or head) *Use of iterative reconstruction technique DLP: 521 mGy-cm FINDINGS: LUNG BASES: The visualized lung bases are unremarkable. LIVER, GALLBLADDER, AND BILIARY TREE: The liver is normal in size, shape, and attenuation. No focal hepatic lesion or biliary ductal dilatation is present. May be a tiny gallstone in the gallbladder. The gallbladder is otherwise unremarkable. PANCREAS: Unremarkable. SPLEEN: Unremarkable. ADRENAL GLANDS: Slight thickening of the posterior limb of the left adrenal gland similar to prior exam. Right adrenal gland is unremarkable. KIDNEYS AND URETERS: The kidneys are normal in size, shape, and attenuation. No hydronephrosis, hydroureter, or calculi seen. The collecting systems are normal. The ureters are normal. No perinephric stranding. BLADDER: Unremarkable. GASTROINTESTINAL TRACT: Mild diverticulosis of the colon. No evidence of diverticulitis. The small and large bowel are otherwise unremarkable. The appendix is not seen. ABDOMINAL WALL: No significant hernia is appreciated. LYMPH NODES: Normal. VASCULAR: Unremarkable. PELVIC VISCERA: Uterus not seen and may been removed. No pelvic mass. OSSEUS STRUCTURES: Unremarkable. IMPRESSION: Normal CT IVP. No cause of hematuria seen. Mild diverticulosis of the colon. Tiny gallstone in the gallbladder. Stable thickening of the posterior limb of the left adrenal gland from prior exams. Assessment & Plan Assessment & Plan (1) Microscopic hematuria: Code(s): R31.29 - Other microscopic hematuria Plan Schedule follow-up office cystoscopy. Patient Instructions: The patient had an opportunity to ask questions regarding treatment plan. All questions were answered. Imaging, Laboratory studies and physical exam results were discussed and reviewed in detail. No major barriers to understanding were identified. The patient expressed understanding and agreement with the above treatment plan. The patient is aware they should contact our office by phone for worsening of their current condition or the appearance of new symptoms. Compliance is encouraged with any medications and followup testing that is ordered. It is a privilege to be allowed the opportunity to participate in the urologic care of your patient. If you have any questions or concerns regarding treatment for the above conditions please do not hesitate to contact me. The office telephone contact is [phone]. This note is constructed in part using voice recognition software. While every effort has been made to ensure accuracy mine safety engineer errors may have been included. Yours sincerely, Carlos Proctor MD Telehealth Telehealth Location of provider rendering services: practice address Location of patient: address on file Patient Identification confirmed using: Name, : Yes Telehealth method: voice only Patient verbally consented to treatment: Yes Patient verbally consented to billing insurance company: Yes Patient informed of any privacy concerns related to visit: Yes Minutes spent on Phone/Video with Pt.: 21 Coding Level of Care Code Tele Est Pt Level 3 (15827) Diagnoses Microscopic hematuria R31.29
== END 2023-12-17 15:55 | disposition home or self-care (01) ==
LOC: HO.HUSH 14:37
PROVIDERS: PCP Nurse Practitioner Family; Visit Provider Urology
DX: R31.29 Other microscopic hematuria (principal)
CPT/HCPCS: 99443

== ENCOUNTER → 2023-12-17 14:36 | Outpatient (BNVA) | payer OTHER, SELFPAY | PROVIDERS: PCP Nurse Practitioner Family; Visit Provider Urology ==

== ENCOUNTER → 2023-12-24 12:49 | Outpatient (BNV) | payer OTHER, SELFPAY | PROVIDERS: PCP Nurse Practitioner Family; Referring Provider Nurse Practitioner Family; Visit Provider Internal Medicine | DX: D75.839 Thrombocytosis, unspecified (principal); D50.9 Iron deficiency anemia, unspecified | CPT/HCPCS: 99204 ==

== ENCOUNTER 2024-02-02 10:31 | Outpatient (AMB) | payer OTHER, SELFPAY ==
--- NOTE | 2024-02-02 10:44 | A.OFFVIS_ITS ---
Intake Visit Reasons: cysto Intake Note: Patient presents today for a CYSTOSCOPY Procedure: Meds: None Allergies to Antibiotic: Sulfa & Moxifloxacin Blood Thinner: None Urinalysis test clear for Cysto? Disposable Uro-G HD Cystoscope Cannula: Lot: [id number] Exp: 09/04/2026 Courtesy Bus Driver Required: No Accompanied by: Self / Same As Patient Allergies moxifloxacin [From Avelox] Allergy (Unknown, Verified 02/02/24 10:58) hives Sulfa (Sulfonamide Antibiotics) Allergy (Unknown, Verified 02/02/24 10:58) hives doxycycline Adverse Reaction (Unknown, Verified 02/02/24 10:58) contraindicated HPI Comments Details: 02/02/2024--Shelly is here for office cystoscopy. She is being evaluated for microscopic hematuria. She has urinary symptoms of dysuria. Comorbidity nicotine dependence. Cystoscopy today. Cystoscopy findings--no suspicious bladder lesions visualized. Discussed trial of Uribel for urinary symptoms of dysuria. Review of chart: 12/17/2023--Lupe is a 53-year-old female who is being evaluated for microscopic hematuria. Comorbidity nicotine dependence, the patient smokes cigarettes daily. She presents for telehealth visit (video attempted) to review CT scan results. I have reviewed the CT urogram that was performed on 11/19/2023. Kidneys within normal limits, no masses renal calculi visualized, bladder unremarkable. Also reviewed urine cytology performed on 10/01/2023 which was negative for malignant cells. Plan will be to have her follow-up in the office for office cystoscopy. Discussed recommendations for nicotine cessation. 10/08/2023-- Lupe is a very pleasant 53-year-old female patient of who was accompanied by her daughters at today's office visit. She has a past medical history of insomnia, headaches, stroke, chronic sinusitis, basal cell carcinoma, ulcerative colitis, diabetes, nicotine dependence, and epilepsy. She presents to the office today as a new patient for microscopic hematuria. When asked patient reports a longstanding history of nicotine dependence of over 30 years. She reports to be smoking approximately 1 pack per day. She denies any known chemical exposure. She currently denies any bothersome urinary issues or concerns. She denies urinary urgency, urinary frequency, incontinence, nocturia, hematuria, dysuria, foul smelling urine, changes to urinary stream, flank pain, fever, and or chills. She is happy with her current voiding parameters. In office urinalysis results reviewed with the patient today microscopic hematuria noted. Discussed at length potential causes of microscopic hematuria as well as further microscopic hematuria workup with in office cystoscopy, CT urogram, and urine cytology. Discussed risks and benefits of further workup versus surveillance monitoring. All questions were answered. [facility] Medical History Insomnia Frontal headache Complaint of nasal congestion Acute sinusitis Stroke Sinusitis, chronic Chronic sinusitis Nontraumatic incomplete tear of right rotator cuff Dawit's paralysis Cervical neck pain with evidence of disc disease Basal cell carcinoma Ulcerative colitis Thyroid nodule Diabetes Smoker Epilepsy Surgical History History of abdominal hysterectomy History of tonsillectomy and adenoidectomy Family History Father Esophageal cancer Prostate CA Mental health disorder Mother Uterine cancer Depression Mental health disorder Maternal Grandmother Kidney problem Maternal Grandfather Diabetes mellitus Stroke Throat cancer Myocardial infarction Paternal Grandfather No problems noted. Paternal Grandmother No problems noted. Brother No problems noted. Sister Mental health disorder Daughter No problems noted. Daughter No problems noted. Social History (Updated 12/24/23 @ 12:59 by Jose Luis Grady) Housing: House Alcohol intake: current Alcohol intake frequency: a few times a month Patient Tobacco Use Status: Current everyday Tobacco user e-Cigarette/Vaping Use: Currently Using Second Hand Smoke Exposure: No Substance Use Type: Marijuana service: No Current occupational status: disabled Cognitive needs: No Hearing needs: No Vision needs: No Review of Systems Const All systems reviewed & are unremarkable except as noted in HPI and below Reports no additional complaints Eyes Reports no additional complaints ENT Reports no additional complaints Card Reports no additional complaints Resp Reports no additional complaints GI Reports no additional complaints Reports as per HPI Musc Reports no additional complaints Skin/Breast Reports system reviewed and no additional complaints, except as documented Neuro Reports no additional complaints Psych Reports no additional complaints Endo Reports no additional complaints John/Lymph Reports no additional complaints Aller/Immun Reports no additional complaints Office Procedures Cystoscopy Consent Discussed risk and benefit or proposed procedure with the patient. Information consent for procedure given to the patient. Discussed technical aspects, risks, benefits and alternatives in full. Addressed all of the patient's questions and concerns regarding the procedure. The patient demonstrated knowledge and understanding. They wish to proceed with this procedure. Preparation The patient was prepped in the usual manner. A tooling specialist was present and in the room. Genitalia was prepped with betadine solution in a sterile manner. Lidocaine Jelly 2% was placed into the urethra and 16Fr flexible Olympus cystoscope was inserted into the meatus after adequate lubrication. Procedure Time out per protocol performed. Bladder Inspection Bladder Inspection: The bladder was inspected in its entirety with utilization retroflexion displaying: Tumor(s): No suspicious lesions visualized Trabeculation: NA Mucosal Erthema: NA Orifices: normal shape and position Urethra: normal Cystoscopy findings: no suspicious bladder lesions visualized [id number] DISPOSABLE SCOPE URO-G FLEXIBLE SCOPE Procedure code (CPT) selection complete Office Meds lidocaine HCl 2 % mucosal jelly in applicator Performing Provider: Calros Proctor MD [facility] Administered by: Brandon Joyce LPN on 02/02/24 11:24 Dose Route Admin Location Dispensed Lot Number Expiration Date ND Bricklayer Supervisor 10 mL intra-urethral 20 mL naproxen 500 mg tablet Performing Provider: Carlos Proctor MD Performing [facility] Administered by: Brandon Joyce LPN on 02/02/24 11:24 Dose Route Admin Location Dispensed Lot Number Expiration Date NDC Bricklayer Supervisor 500 mg PO 1 tab ciprofloxacin HCl 500 mg tablet Performing Provider: Carlos Proctor MD Performing [facility] Administered by: Brandon Joyce LPN on 02/02/24 11:24 Dose Route Admin Location Dispensed Lot Number Expiration Date NDC Bricklayer Supervisor 500 mg PO 1 tab Results AMB Urinalysis, Automated UA Leukoctes 70 Babatunde/uL Last Edit by OG White on 02/02/24 11:01 UA Nitrite Positive Last Edit by OG White on 02/02/24 11:01 UA Urobilinogen 1 mg/dL Last Edit by OG White on 02/02/24 11:01 UA Protein 0 mg/dL Last Edit by Vitaliy Alcantar Myrna on 02/02/24 11:01 UA pH 6.0 Last Edit by Vitaliy Alcantar Myrna on 02/02/24 11:01 UA Blood 25 Rocky/uL Last Edit by Vitaliy Alcantar Myrna on 02/02/24 11:01 1+ Vitaliy Alcantar 02/02/24 11:01 UA Specific Dawson 1.015 Last Edit by OG White on 02/02/24 11: 01 UA Ketone Negative Last Edit by OG White on 02/02/24 11:01 UA Bilirubin 1 mg/dL Last Edit by Vitaliy Alcantar Myrna on 02/02/24 11:01 UA Glucose 0 mg/dL Last Edit by Vitaliy Alcantar Myrna on 02/02/24 11:01 Results Reviewed Results Reviewed: Laboratory Last Values Urine pH (Auto) 6.0 02/02/24 10:58 Specific Dawson (Auto) 1.015 02/02/24 10:58 Urine Protein (Auto) 0 mg/dL 02/02/24 10:58 Glucose (UA)(Auto) 0 mg/dL 02/02/24 10:58 Urine Ketones (Auto) Negative 02/02/24 10:58 Urine Blood (Auto) 25 Rocky/uL 02/02/24 10:58 Urine Nitrite (Auto) Positive 02/02/24 10:58 Urine Bilirubin (Auto) 1 mg/dL 02/02/24 10:58 Urine Urobilinogen (Auto) 1 mg/dL 02/02/24 10:58 Leukocyte Esterase (Auto) 70 Babatunde/uL 02/02/24 10:58 Date of Service: 11/19/23 EXAMINATION: CT ABDOMEN AND PELVIS WITHOUT AND WITH CONTRAST CLINICAL INFORMATION: Microscopic hematuria COMPARISON: Previous renal ultrasound July 2023, CT scan of the abdomen and pelvis May 2019 and MRI June 2019 TECHNIQUE: Noncontrast CT of the abdomen and pelvis is performed followed by split bolus contrast-enhanced images using 100 mL Omnipaque 350 contrast.? Postcontrast imaging is performed during the combined nephrogram and excretion phase. Sagittal and coronal reformatted images were obtained on the technologist's workstation for both the precontrast and postcontrast phases. This CT examination was performed using dose optimization techniques as appropriate, variously including the following: *Automated exposure control *Adjustment of mA and/or kV according to patient size (this includes techniques or standardized protocols for targeted exams where dose is matched to indication/reason for exam; i.e. extremities or head) *Use of iterative reconstruction technique DLP: 521 mGy-cm FINDINGS: LUNG BASES: The visualized lung bases are unremarkable. LIVER, GALLBLADDER, AND BILIARY TREE: The liver is normal in size, shape, and attenuation. No focal hepatic lesion or biliary ductal dilatation is present. May be a tiny gallstone in the gallbladder. The gallbladder is otherwise unremarkable. PANCREAS: Unremarkable. SPLEEN: Unremarkable. ADRENAL GLANDS: Slight thickening of the posterior limb of the left adrenal gland similar to prior exam. Right adrenal gland is unremarkable. KIDNEYS AND URETERS: The kidneys are normal in size, shape, and attenuation. No hydronephrosis, hydroureter, or calculi seen. The collecting systems are normal. The ureters are normal. No perinephric stranding. BLADDER: Unremarkable. GASTROINTESTINAL TRACT: Mild diverticulosis of the colon. No evidence of diverticulitis. The small and large bowel are otherwise unremarkable. The appendix is not seen. ABDOMINAL WALL: No significant hernia is appreciated. LYMPH NODES: Normal. VASCULAR: Unremarkable. PELVIC VISCERA: Uterus not seen and may been removed. No pelvic mass. OSSEUS STRUCTURES: Unremarkable. IMPRESSION: Normal CT IVP. No cause of hematuria seen. Mild diverticulosis of the colon. Tiny gallstone in the gallbladder. Stable thickening of the posterior limb of the left adrenal gland from prior exams. Assessment & Plan Assessment & Plan (1) Microscopic hematuria: Code(s): R31.29 - Other microscopic hematuria Category: Medical (2) Dysuria: Code(s): R30.0 - Dysuria Category: Medical (3) Urinary frequency: Code(s): R35.0 - Frequency of micturition Category: Medical Plan Evaluation for microscopic hematuria. No malignancy identified at this time negative for renal stones. Trial of Uribel for symptoms of dysuria and urinary frequency.. Orders: Orders AMB Urinalysis Automated 02/02/24 Z13.9 - Encounter for screening, unspecified AMB Cystoscopy 02/02/24 R30.0 - Dysuria, N30.01 - Acute cystitis with hematuria, R31.29 - Other microscopic hematuria, R35.0 - Frequency of micturition Urine Culture 02/02/24 N39.0 - Urinary tract infection, site not specified Medications: New methen-m.blue-s.zkwf-zlonw-yav 118-10-40.8-36 mg (Uribel) administer with plenty of fluids 1 tab PO .bid - tid 90 caps 3RF Patient Instructions: The patient had an opportunity to ask questions regarding treatment plan. The patient expressed understanding and agreement with the above treatment plan. The patient is aware they should contact our office by phone for worsening of their current condition or the appearance of new symptoms. Compliance is encouraged with any medications and followup testing that is ordered. It is a privilege to be allowed the opportunity to participate in the urologic care of your patient. If you have any questions or concerns regarding treatment for the above conditions please do not hesitate to contact me. The office telephone contact is [phone]. This note is constructed in part using voice recognition software. While every effort has been made to ensure accuracy community relations advisor errors may have been included. Yours sincerely, Carlos Proctor MD Coding Level of Care Code Procedure Only Diagnoses Microscopic hematuria R31.29 Dysuria R30.0 Urinary frequency R35.0 CPT Codes Cystoscopy - CPT: 78893-[id number] ([id number])
== END 2024-02-02 11:56 | disposition home or self-care (01) ==
LOC: HO.HUSH 10:31
PROVIDERS: PCP Nurse Practitioner Family; Visit Provider Urology
DX: R30.0 Dysuria (principal); N30.01 Acute cystitis with hematuria; R35.0 Frequency of micturition; Z13.9 Encounter for screening, unspecified
CPT/HCPCS: 52000

== ENCOUNTER 2024-02-02 10:31 | Outpatient (REF) | payer OTHER, SELFPAY | END 2024-02-02 10:32 | disposition home or self-care (01) | LOC: HO.LAB 10:31 | PROVIDERS: PCP Nurse Practitioner Family; Visit Provider Urology | DX: N30.01 Acute cystitis with hematuria (principal); R30.0 Dysuria; R35.0 Frequency of micturition | CPT/HCPCS: 52000; 81003; 87086 ==

== ENCOUNTER 2024-03-09 08:18 | Outpatient (AMB) | payer OTHER, SELFPAY ==
[2024-03-09 08:49] VITALS: BP 110/70; PULSE 75; TEMP 36.2; O2SAT 98; BMI 26.3
--- NOTE | 2024-03-09 08:49 | AM.OFFWIN_ITS ---
Intake Vital Signs 03/09/24 08:49 Height 5 ft 1 in Weight 139 lb BMI 26.3 BP 110/70 Blood Pressure Location Lt brachial Position Sitting Pulse 75 Pulse Source Pulse Oximeter Temp 97.2 F Temp Source Temporal Artery Scan Pulse Oximetry (%) 98 Oxygen Delivery Method Room Air Intake Visit Reasons: EST/side pain ([phone]) Intake Note: pt is here today for side pain started friday Patient Tobacco Use Status: Current everyday Tobacco user Allergies moxifloxacin [From Avelox] Allergy (Unknown, Verified 03/09/24 09:20) hives Sulfa (Sulfonamide Antibiotics) Allergy (Unknown, Verified 03/09/24 09:20) hives doxycycline Adverse Reaction (Unknown, Verified 03/09/24 09:20) contraindicated Medication List - Last Reconciled 03/09/24 by Tyson Aiken MD albuterol sulfate 90 mcg/actuation 2 puffs inhalation Q6H PRN aripiprazole 10 mg PO DAILY 90 days aspirin 325 mg PO DAILY atorvastatin 40 mg PO BEDTIME blood sugar diagnostic (EndoInSightTouch Verio test strips) check blood glucose tid ac and for hypo/hyperglycemic episodes ferrous sulfate 324 mg PO BID fexofenadine-pseudoephedrine 60-120 mg ER (Sofi-D 12 Hour) 1 tab PO .QD PRN ibuprofen 800 mg PO Q6H PRN insulin degludec (Tresiba FlexTouch U-100 insulin) 14 units (0.14 mL) subcut BEDTIME lancets tid testing levetiracetam 1,500 mg (2 x 750 mg) PO BID metformin 1,000 mg PO BID mirabegron ER (Myrbetriq) 50 mg PO DAILY 90 days pen needle, diabetic (Easy Touch) As directed to inject insulin once a day sertraline 150 mg (1.5 x 100 mg) PO DAILY suvorexant (Belsomra) 15 mg PO BEDTIME 30 days tizanidine 2 mg PO TID PRN Do you need a note to return to daycare/school/sports/work: No HPI EST/side pain ([phone]) HPI Details 53-year-old female presents to the [facility] for a sick visit. Patient is reporting pain in the left lower back for the past few days. She is familiar with these symptoms, they are an indication of an upcoming urinary tract infection. Associated symptoms include burning on urination and increased frequency. No fevers or chills. [facility] Medical History Insomnia Frontal headache Complaint of nasal congestion Acute sinusitis Stroke Sinusitis, chronic Chronic sinusitis Nontraumatic incomplete tear of right rotator cuff Dawit's paralysis Cervical neck pain with evidence of disc disease Basal cell carcinoma Ulcerative colitis Thyroid nodule Diabetes Smoker Epilepsy Surgical History History of abdominal hysterectomy History of tonsillectomy and adenoidectomy Family History Father Esophageal cancer Prostate CA Mental health disorder Mother Uterine cancer Depression Mental health disorder Maternal Grandmother Kidney problem Maternal Grandfather Diabetes mellitus Stroke Throat cancer Myocardial infarction Paternal Grandfather No problems noted. Paternal Grandmother No problems noted. Brother No problems noted. Sister Mental health disorder Daughter No problems noted. Daughter No problems noted. Social History (Updated 12/24/23 @ 12:59 by Jose Luis Grady) Housing: House Alcohol intake: current Alcohol intake frequency: a few times a month Patient Tobacco Use Status: Current everyday Tobacco user e-Cigarette/Vaping Use: Currently Using Second Hand Smoke Exposure: No Substance Use Type: Marijuana service: No Current occupational status: disabled Cognitive needs: No Hearing needs: No Vision needs: No Physical Exam Vital Signs: Last Vital Signs Temp 97.2 F 03/09/24 08:49 Pulse 75 03/09/24 08:49 BP 110/70 03/09/24 08:49 Pulse Ox 98 03/09/24 08:49 Oxygen Delivery Method Room Air 03/09/24 08:49 BMI result Body Mass Index 26.3 Const General: cooperative and healthy appearing Nutritional Appearance: well nourished Orientation/consciousness: patient oriented x3 Limitations: no limitations HEENT Head: Yes normal to inspection Eyes General: appearance normal, both eyes and all related structures Neck Neck: Yes normal visual inspection Chest Chest palpation & inspection: normal palpation of entire chest wall Resp Effort & Inspection: normal respiratory effort Other: Back: Discomfort on the left side of the lower back. No suprapubic tenderness. General: Yes no CVA tenderness Back/Spine/Pelvis Back: no CVA tenderness Neuro General: patient oriented x3 Assessment & Plan Assessment & Plan (1) UTI (urinary tract infection): Code(s): N39.0 - Urinary tract infection, site not specified Qualifiers: Urinary tract infection type: acute cystitis Hematuria presence: with hematuria Qualified Code(s): N30.01 - Acute cystitis with hematuria Plan: Urinalysis reviewed. Antibiotics, Pyridium and meloxicam called in. Symptoms do not improve to follow-up here. Coding Level of Care Code Est Pt Level 3 (00782) Diagnoses Acute cystitis with hematuria N30.01 Urinary tract infection type: acute cystitis Hematuria presence: with hematuria
== END 2024-03-09 10:15 | disposition home or self-care (01) ==
PROVIDERS: PCP Nurse Practitioner Family; Visit Provider Internal Medicine
DX: N30.01 Acute cystitis with hematuria (principal)
CPT/HCPCS: 99213

== ENCOUNTER 2024-04-08 08:16 | Outpatient (AMB) | payer MEDICARE, SELFPAY ==
[2024-04-08 08:20] VITALS: BP 106/62; PULSE 75; TEMP 36.4; O2SAT 99; BMI 25.9
--- NOTE | 2024-04-08 08:20 | AM.OFFWIN_ITS ---
Intake Vital Signs 04/08/24 08:20 Height 5 ft 1 in Weight 137 lb BMI 25.9 BP 106/62 Blood Pressure Location Rt brachial Position Sitting Pulse 75 Pulse Source Pulse Oximeter Temp 97.5 F Temp Source Oral Pulse Oximetry (%) 99 Oxygen Delivery Method Room Air Intake Visit Reasons: EP ??? kidney infection Intake Note: pt here c/o RT kidney pain, bladder spasm, burning. Patient Tobacco Use Status: Current everyday Tobacco user Allergies moxifloxacin [From Avelox] Allergy (Unknown, Verified 04/08/24 08:26) hives Sulfa (Sulfonamide Antibiotics) Allergy (Unknown, Verified 04/08/24 08:26) hives doxycycline Adverse Reaction (Unknown, Verified 04/08/24 08:26) contraindicated HPI HPI Comments History of Present Illness Details Patient is a 53-year-old female complaining of 3 days of increased frequency, burning with urination. She denies any fevers but states he does have a history of kidney stones. She states this does not feel like a kidney stone to her. She also states she just over a kidney infection a month ago. [facility] Medical History Insomnia Frontal headache Complaint of nasal congestion Acute sinusitis Stroke Sinusitis, chronic Chronic sinusitis Nontraumatic incomplete tear of right rotator cuff Dawit's paralysis Cervical neck pain with evidence of disc disease Basal cell carcinoma Ulcerative colitis Thyroid nodule Diabetes Smoker Epilepsy Surgical History History of abdominal hysterectomy History of tonsillectomy and adenoidectomy Family History Father Esophageal cancer Prostate CA Mental health disorder Mother Uterine cancer Depression Mental health disorder Maternal Grandmother Kidney problem Maternal Grandfather Diabetes mellitus Stroke Throat cancer Myocardial infarction Paternal Grandfather No problems noted. Paternal Grandmother No problems noted. Brother No problems noted. Sister Mental health disorder Daughter No problems noted. Daughter No problems noted. Social History (Updated 12/24/23 @ 12:59 by Jose Luis Grady) Housing: House Alcohol intake: current Alcohol intake frequency: a few times a month Patient Tobacco Use Status: Current everyday Tobacco user e-Cigarette/Vaping Use: Currently Using Second Hand Smoke Exposure: No Substance Use Type: Marijuana service: No Current occupational status: disabled Cognitive needs: No Hearing needs: No Vision needs: No Review of Systems Const All systems reviewed & are unremarkable except as noted in HPI and below Physical Exam Vital Signs: BMI result Body Mass Index 25.9 Const General: cooperative, healthy appearing, comfortable, no acute distress and well developed Orientation/consciousness: patient oriented x3 Limitations: no limitations HEENT Head: Yes normal to inspection Eyes General: appearance normal, both eyes and all related structures Neck Neck: Yes normal visual inspection and Yes full ROM Resp Effort & Inspection: normal respiratory effort and able to speak in complete sentences General: Yes CVA tenderness on the right Back/Spine/Pelvis Back: CVA tenderness Skin General skin exam: no rashes or lesions noted Neuro General: patient oriented x3 Extrem General: Yes normal to inspection Results AMB Urinalysis, Automated UA Leukoctes 0 [place]/uL Last Edit by Srinivasa Lechuga CMA on 04/08/24 08:32 UA Nitrite Negative Last Edit by Srinivasa Lechuga CMA on 04/08/24 08:32 UA Urobilinogen 0.2 mg/dL Last Edit by Srinivasa Lechuga CMA on 04/08/24 08 :32 UA Protein 0 mg/dL Last Edit by Srinivasa Lechuga CMA on 04/08/24 08:32 UA pH 6.0 Last Edit by Srinivasa Lechuga CMA on 04/08/24 08:32 UA Blood 10 [place]/uL Last Edit by Srinivasa Lechuga CMA on 04/08/24 08:32 UA Specific [place] 1.015 Last Edit by Srinivasa Lechuga CMA on 04/08/24 08:32 UA Ketone Negative Last Edit by Srinivasa Lechuga CMA on 04/08/24 08:32 UA Bilirubin 0 mg/dL Last Edit by Srinivasa Lechuga CMA on 04/08/24 08:32 UA Glucose 0 mg/dL Last Edit by Srinivasa Lechuga CMA on 04/08/24 08:32 Assessment & Plan Assessment & Plan (1) Kidney stone on right side: Code(s): N20.0 - Calculus of kidney Plan: UA negative for infection, positive for blood. With history of stones and positive CVA on the right side, sent patient to the emergency department for an ultrasound and further workup. Called [facility] ED with expect Plan see above Coding Level of Care Code Est Pt Level 5 (86284) Diagnoses Kidney stone on right side N20.0
== END 2024-04-08 09:17 | disposition home or self-care (01) ==
PROVIDERS: PCP Nurse Practitioner Family; Visit Provider Physician Assistant
DX: N20.0 Calculus of kidney (principal)
CPT/HCPCS: 81003; 99215

== ENCOUNTER 2024-05-05 08:17 | Outpatient (AMB) | payer MEDICARE, SELFPAY ==
[2024-05-05 08:43] VITALS: BP 100/62; PULSE 82; TEMP 36.8; O2SAT 95; BMI 25.9
--- NOTE | 2024-05-05 08:43 | AM.OFFWIN_ITS ---
Intake Vital Signs 05/05/24 08:43 Height 5 ft 1 in Weight 137 lb BMI 25.9 BP 100/62 Blood Pressure Location Rt brachial Position Sitting Pulse 82 Pulse Source Pulse Oximeter Temp 98.3 F Temp Source Oral Pulse Oximetry (%) 95 Intake Visit Reasons: EP sore throat ear ache cough Intake Note: pt is here for sore throat, cough, and ear ache Patient Tobacco Use Status: Current everyday Tobacco user Allergies moxifloxacin [From Avelox] Allergy (Unknown, Verified 05/05/24 08:43) hives Sulfa (Sulfonamide Antibiotics) Allergy (Unknown, Verified 05/05/24 08:43) hives doxycycline Adverse Reaction (Unknown, Verified 05/05/24 08:43) contraindicated Do you need a note to return to daycare/school/sports/work: No HPI HPI Comments History of Present Illness Details 53 y/o female patient who [facility] with c/o URI symptoms for 5 days. Reports having fevers at home around 101 F. She has been taking Acetaminophen routinely with good relief. For the past few days she has been taking of her daughter who came down with Rhinovirus (admitted in hospital) plus her is also admitted for other medical reasons. Pt has been stressed lately, fatigued not sleeping well. [facility] Medical History Insomnia Frontal headache Complaint of nasal congestion Acute sinusitis Stroke Sinusitis, chronic Chronic sinusitis Nontraumatic incomplete tear of right rotator cuff Dawit's paralysis Cervical neck pain with evidence of disc disease Basal cell carcinoma Ulcerative colitis Thyroid nodule Diabetes Smoker Epilepsy Surgical History History of abdominal hysterectomy History of tonsillectomy and adenoidectomy Family History Father Esophageal cancer Prostate CA Mental health disorder Mother Uterine cancer Depression Mental health disorder Maternal Grandmother Kidney problem Maternal Grandfather Diabetes mellitus Stroke Throat cancer Myocardial infarction Paternal Grandfather No problems noted. Paternal Grandmother No problems noted. Brother No problems noted. Sister Mental health disorder Daughter No problems noted. Daughter No problems noted. Social History (Updated 12/24/23 @ 12:59 by Jose Luis Laguerre Housing: House Alcohol intake: current Alcohol intake frequency: a few times a month Patient Tobacco Use Status: Current everyday Tobacco user e-Cigarette/Vaping Use: Currently Using Second Hand Smoke Exposure: No Substance Use Type: Marijuana service: No Current occupational status: disabled Cognitive needs: No Hearing needs: No Vision needs: No Review of Systems Const All systems reviewed & are unremarkable except as noted in HPI and below Physical Exam Vital Signs: Last Vital Signs Temp 98.3 F 05/05/24 08:43 Pulse 82 05/05/24 08:43 BP 100/62 05/05/24 08:43 Pulse Ox 95 05/05/24 08:43 BMI result Body Mass Index 25.9 Const General: comfortable and no acute distress Orientation/consciousness: patient oriented x3 HEENT Head: Yes normocephalic Ears: external ears normal and TM abnormal obstructed by cerumen General nose exam: Abnormal mucous membranes and turbinates present pale Face and sinus: Yes sinuses nontender Mouth: moist mucous membranes Throat: Yes postnasal drainage Resp Effort & Inspection: normal respiratory effort and able to speak in complete sentences Auscultation: clear to auscultation bilaterally, no crackles, no rales, no rhonchi and no wheezes Cardio Heart sounds: S1 normal heart sound present and S2 normal heart sound present Neuro General: patient oriented x3, gait normal and moves all extremities Psych Speech and movement: Normal speech and movement present Results AMB Rapid Strep AMB Rapid Strep Negative Last Edit by Srinivasa Lechuga CMA on 05/05/24 09 :43 Results Reviewed Results Reviewed: Laboratory Last Values Strep Scn Rapid Clinic Negative 05/05/24 09:42 Assessment & Plan Assessment & Plan (1) URI, acute: Code(s): J06.9 - Acute upper respiratory infection, unspecified Plan: Pt needs to get some rest Acetaminophen for pain relief Hydrate well OTC cold and cough remedies. Orders: Orders AMB Rapid Strep Screen Today Z13.9 - Encounter for screening, unspecified Coding Level of Care Code Est Pt Level 3 (41824) Diagnoses URI, acute J06.9 Time Spent (min) 15
== END 2024-05-05 09:37 | disposition home or self-care (01) ==
PROVIDERS: PCP Nurse Practitioner Family; Visit Provider Nurse Practitioner Family
DX: Z13.9 Encounter for screening, unspecified (principal); J06.9 Acute upper respiratory infection, unspecified
CPT/HCPCS: 87880; 99213

== ENCOUNTER 2024-05-13 08:38 | Outpatient (AMB) | payer MEDICARE, SELFPAY ==
--- NOTE | 2024-05-13 07:08 | MHC.PC.OV ---
Intake Visit Reasons: Meds Allergies moxifloxacin [From Avelox] Allergy (Unknown, Verified 05/13/24 07:09) hives Sulfa (Sulfonamide Antibiotics) Allergy (Unknown, Verified 05/13/24 07:09) hives doxycycline Adverse Reaction (Unknown, Verified 05/13/24 07:09) contraindicated Medication List - Last Reconciled 05/13/24 by MIGUEL ANGEL Cardenas albuterol sulfate 90 mcg/actuation 2 puffs inhalation Q6H PRN aripiprazole 10 mg PO DAILY 90 days aspirin 325 mg PO DAILY atorvastatin 40 mg PO BEDTIME blood sugar diagnostic (DxUpCloseuch Verio test strips) check blood glucose tid ac and for hypo/hyperglycemic episodes diazepam 5 mg PO BEDTIME PRN 4 days ferrous sulfate 324 mg PO BID fexofenadine-pseudoephedrine 60-120 mg ER (Sofi-D 12 Hour) 1 tab PO .QD PRN ibuprofen 800 mg PO Q6H PRN insulin degludec (Tresiba FlexTouch U-100 insulin) 14 units (0.14 mL) subcut BEDTIME lancets tid testing levetiracetam 1,500 mg (2 x 750 mg) PO BID metformin 1,000 mg PO BID Myrbetriq ER (mirabegron) 50 mg PO DAILY 90 days NS pen needle, diabetic (Easy Touch) As directed to inject insulin once a day sertraline 150 mg (1.5 x 100 mg) PO DAILY suvorexant (Belsomra) 15 mg PO BEDTIME 30 days tizanidine 2 mg PO TID PRN Tobacco use date assessed: 08/04/23 Dental Screening Dental Screen Date: 08/04/23 HPI Meds HPI Details Anxiety: Pt reports that her is going in for a vascular procedure in the near future. She reports increased anxiety because of this (pt in tears). Will send short duration of diazepam for anxiety/insomnia. Educated pt on risk of addiction, this is not a long-term med. Pt understands that they can not drive while taking this med, share this med, and to only take as prescribed. Denies any SI and HI. [facility] Medical History Insomnia Frontal headache Complaint of nasal congestion Acute sinusitis Stroke Sinusitis, chronic Chronic sinusitis Nontraumatic incomplete tear of right rotator cuff Dawit's paralysis Cervical neck pain with evidence of disc disease Basal cell carcinoma Ulcerative colitis Thyroid nodule Diabetes Smoker Epilepsy Surgical History History of abdominal hysterectomy History of tonsillectomy and adenoidectomy Family History Father Esophageal cancer Prostate CA Mental health disorder Mother Uterine cancer Depression Mental health disorder Maternal Grandmother Kidney problem Maternal Grandfather Diabetes mellitus Stroke Throat cancer Myocardial infarction Paternal Grandfather No problems noted. Paternal Grandmother No problems noted. Brother No problems noted. Sister Mental health disorder Daughter No problems noted. Daughter No problems noted. Social History Housing: House Alcohol intake: current Alcohol intake frequency: a few times a month Patient Tobacco Use Status: Current everyday Tobacco user e-Cigarette/Vaping Use: Currently Using Second Hand Smoke Exposure: No Substance Use Type: Marijuana service: No Current occupational status: disabled Cognitive needs: No Hearing needs: No Vision needs: No Questionnaire Thrive Questionnaire Date Thrive assessed: 02/13/23 MICAELA-7 AMB Questionnaire MICAELA-7 Date MICAELA - 7 assessed: 02/13/23 Source: Developed by Drs. Joss Gutierrez, Ami Hinton, Juan David Mercado and colleagues, with an educational emilie from [employer]. Review of Systems Const Reports as per HPI Physical exam (Primary Care) Tobacco/Smoking Status: Tobacco use Status Tobacco use date assessed 08/04/23 03/09/24 08:17 Patient Tobacco Use Status Current everyday Tobacco 05/05/24 08:43 e-Cigarette/Vaping Use Currently Using 03/09/24 08:17 Thrive Assessment: Date of Thrive Assessment Date Thrive assessed 02/13/23 03/09/24 08:17 Const General: cooperative Orientation/consciousness: patient oriented x3 Neuro General: patient oriented x3 Psych Appearance: grossly normal Mental Status: mental status grossly normal Speech and movement: Clear speech present Affect: normal affect Attitude: cooperative Thought process: Normal thought process present Thought content: Normal thought content present Insight: Good insight present (Psych) Judgement: Good judgement present (Psych) Telehealth Telehealth Telehealth Platform: D[employer]Panv[employer] Location of provider rendering services: practice address Location of patient: address on file Patient Identification confirmed using: Name, : Yes Telehealth method: video Patient verbally consented to treatment: Yes Patient verbally consented to billing insurance company: Yes Patient informed of any privacy concerns related to visit: Yes Minutes spent on Phone/Video with Pt.: 10 Assessment and Plan Assessment & Plan (1) Anxiety: Code(s): F41.9 - Anxiety disorder, unspecified Plan: short duration of diazepam, pt will contact me next week after 's procedure Plan The patient agreed to the use of a electromedical equipment technician for this encounter. Scribed for MIGUEL ANGEL Wilkins by Mora Doss electromedical equipment technician, on 05/13/2024 at 07:10 EST. Medications: New diazepam 5 mg PO BEDTIME PRN 4 tabs 0RF sleep 4 days Coding Level of Care Code Tele Est Pt Level 3 (67405) Diagnoses Anxiety F41.9
== END 2024-05-13 08:40 | disposition home or self-care (01) ==
LOC: HO.HMGC 08:38
PROVIDERS: PCP Nurse Practitioner Family; Visit Provider Nurse Practitioner Family
DX: F41.9 Anxiety disorder, unspecified (principal)
CPT/HCPCS: 99213

== ENCOUNTER 2024-08-30 16:22 | Outpatient (REF) | payer MEDICARE, SELFPAY ==
--- NOTE | ~2024-08-30 | XR_ITS ---
EXAMINATION: XR CHEST CLINICAL INFORMATION: R05.9 - Cough, unspecified COMPARISON: None available. TECHNIQUE: Frontal and lateral views of the chest were obtained. FINDINGS: No significant abnormality is noted involving the heart, lungs, mediastinum, bony thorax or soft tissues. XR/XR chest 2V IMPRESSION: No acute cardiopulmonary disease. Electronically signed by: Huy Encarnacion MD 08/31/2024 08:09 AM [facility]
== END 2024-08-30 16:23 | disposition home or self-care (01) ==
LOC: HO.HMGCX 16:22
PROVIDERS: PCP Nurse Practitioner Family; Visit Provider Nurse Practitioner Family
DX: R05.9 Cough, unspecified (principal)
CPT/HCPCS: 71046

== ENCOUNTER 2024-09-16 10:52 | Outpatient (AMB) | payer MEDICARE, SELFPAY ==
--- NOTE | 2024-09-16 11:29 | MHC.OFFWIV ---
Intake Vital Signs 09/16/24 11:36 Height 5 ft 1 in Weight 140 lb BMI 26.4 BP 122/74 Blood Pressure Location Rt brachial Position Sitting Pulse 68 Pulse Source Pulse Oximeter Temp 97.8 F Temp Source Oral Pulse Oximetry (%) 97 Oxygen Delivery Method Room Air Intake Visit Reasons: EP ?Kidney infection/blood in urine Intake Note: Patient here for severe bladder pain, burning and frequent urination, also right kidney pain which has been present for 3 days. Patient Tobacco Use Status: Current everyday Tobacco user Allergies moxifloxacin [From Avelox] Allergy (Unknown, Verified 09/16/24 11:36) hives Sulfa (Sulfonamide Antibiotics) Allergy (Unknown, Verified 09/16/24 11:36) hives doxycycline Adverse Reaction (Unknown, Verified 09/16/24 11:36) contraindicated Do you need a note to return to daycare/school/sports/work: No HPI EP ?Kidney infection/blood in urine HPI Details This note is constructed using voice recognition software. While every effort has been made to ensure accuracy, reflector driller and deburrer errors may have been included. The patient is a 54 year old female who presents to the clinic today with concerns for urinary tract infection. She notes that she has had symptoms for the past 3 days, including urinary urgency, burning, frequency. She has an extensive history urinary tract infections, as well as kidney stones. She reports that she has some right-sided flank pain and pressure in her bladder. She denies fever, chills, body aches. She is status post hysterectomy in her 30s. She follows a urologist, and is pending a cystoscopy. [facility] Medical History Insomnia Frontal headache Complaint of nasal congestion Acute sinusitis Stroke Sinusitis, chronic Chronic sinusitis Nontraumatic incomplete tear of right rotator cuff Dawit's paralysis Cervical neck pain with evidence of disc disease Basal cell carcinoma Ulcerative colitis Thyroid nodule Diabetes Smoker Epilepsy Surgical History History of abdominal hysterectomy History of tonsillectomy and adenoidectomy Family History Father Esophageal cancer Prostate CA Mental health disorder Mother Uterine cancer Depression Mental health disorder Maternal Grandmother Kidney problem Maternal Grandfather Diabetes mellitus Stroke Throat cancer Myocardial infarction Paternal Grandfather No problems noted. Paternal Grandmother No problems noted. Brother No problems noted. Sister Mental health disorder Daughter No problems noted. Daughter No problems noted. Social History Housing: House Alcohol intake: current Alcohol intake frequency: a few times a month Patient Tobacco Use Status: Current everyday Tobacco user e-Cigarette/Vaping Use: Currently Using Second Hand Smoke Exposure: No Substance Use Type: Marijuana service: No Current occupational status: disabled Cognitive needs: No Hearing needs: No Vision needs: No Review of Systems Const All systems reviewed & are unremarkable except as noted in HPI and below Physical Exam Vital Signs: Last Vital Signs Temp 97.8 F 09/16/24 11:36 Pulse 68 09/16/24 11:36 BP 122/74 09/16/24 11:36 Pulse Ox 97 09/16/24 11:36 Oxygen Delivery Method Room Air 09/16/24 11:36 BMI result Body Mass Index 26.4 Const General: cooperative, healthy appearing, comfortable, no acute distress and alert Orientation/consciousness: patient oriented x3 Limitations: no limitations Resp Effort & Inspection: normal respiratory effort and able to speak in complete sentences Other: Deferred General: Yes CVA tenderness on the right and diffuse Back/Spine/Pelvis Back: CVA tenderness Skin General skin exam: no rashes or lesions noted, elasticity normal and turgor normal Neuro General: patient oriented x3 Psych Appearance: grossly normal Mental Status: mental status grossly normal Speech and movement: Normal speech and movement present Affect: normal affect Results AMB Urinalysis, Automated UA Leukoctes 0 Babatunde/uL Last Edit by LAMINE Chavez on 09/16/24 11:44 UA Nitrite Negative Last Edit by LAMINE Chavez on 09/16/24 11:44 UA Urobilinogen 0.2 mg/dL Last Edit by LAMINE Chavez on 09/16/24 11:44 UA Protein 0 mg/dL Last Edit by LAMINE Chavez on 09/16/24 11:44 UA pH 6.0 Last Edit by LAMINE Chavez on 09/16/24 11:44 UA Blood 10 Rocky/uL Last Edit by Jorje Malhotra [facility] on 09/16/24 11:44 UA Specific [place] 1.020 Last Edit by Jorje Malhotra [facility] on 09/16/24 11:44 UA Ketone Negative Last Edit by Jorje Malhotra [facility] on 09/16/24 11:44 UA Bilirubin 0 mg/dL Last Edit by Jorje Malhotra [facility] on 09/16/24 11:44 UA Glucose 0 mg/dL Last Edit by Jorje Malhotra [facility] on 09/16/24 11:44 Results Reviewed Results Reviewed: Laboratory Last Values Urine pH (Auto) 6.0 09/16/24 11:43 Specific [place] (Auto) 1.020 09/16/24 11:43 Urine Protein (Auto) 0 mg/dL 09/16/24 11:43 Glucose (UA)(Auto) 0 mg/dL 09/16/24 11:43 Urine Ketones (Auto) Negative 09/16/24 11:43 Urine Blood (Auto) 10 Rocky/uL 09/16/24 11:43 Urine Nitrite (Auto) Negative 09/16/24 11:43 Urine Bilirubin (Auto) 0 mg/dL 09/16/24 11:43 Urine Urobilinogen (Auto) 0.2 mg/dL 09/16/24 11:43 Leukocyte Esterase (Auto) 0 Babatunde/uL 09/16/24 11:43 Assessment & Plan Assessment & Plan (1) Dysuria: Code(s): R30.0 - Dysuria Plan: In office urine positive for blood, otherwise negative. Reviewed with patient that this is most most consistent with likely a kidney stone which she adamantly disagreed with based on how she experiences UTI's in the past, however based on her physical examination findings and symptoms we will treat her for urinary tract infection. Advised her to continue with NSAIDs for pain management, and to monitor for any worsening symptoms. She should continue to follow up with her urologist as planned. If she has sudden acute worsening of pain, she may consider emergency room for kidney stone management. Plan See above for full details and plan. Orders: Orders AMB Urinalysis Automated Today Z13.9 - Encounter for screening, unspecified Medications: New nitrofurantoin monohyd/m-cryst 100 mg must administer with a meal/food 100 mg PO Q12H 5 days 10 caps 0RF Coding Level of Care Code Est Pt Level 3 (04980) Diagnoses Dysuria R30.0
[2024-09-16 11:36] VITALS: BP 122/74; PULSE 68; TEMP 36.6; O2SAT 97; BMI 26.4
--- OUTSIDE RECORDS SUMMARY | 2024-09-22 01:46 | XMS_ITS | Continuity of Care Document ---
Author Organization [employer] [facility] Address [address] [place] [address] Phone Care Team Providers Care Director Of Curriculum And Instruction Name Role Phone Ruth MANCILLA, Zach Unavailable Unavailab le Allergies, Adverse Reactions, Alerts Substance Reaction Status Criticality sulfanilamide Active No Information Penicillins Active No Information Medications Medication Instructions Dosage Effective Dates (start - stop) Status Comments FreeStyle Test Strips free style flash t est strips, test twice daily or as directed - Active Xanax 0.5 mg Tab Take one tablet by mouth daily - Active Crestor 10 mg Tab Take one tablet by mouth daily - Active Depakote 250 mg Tab two in am, one at lunch, one in pm - Active Lexapro 20 mg Tab Take one tablet by mouth daily - Active BuSpar 15 mg Tab 1/2 tab daily - Activ e Actoplus MET 15 mg-500 mg Tab Take one tablet by mouth two times per day - Active Percocet 5 mg-325 mg Tab Take one tablet by mouth every four hours as needed - Active azithromycin 250 mg Tab Take 2 pills first day, then one pill daily thereafter - Active Vesicare 5 mg Tab Take one tablet by mouth daily - Active Pyridium 200 mg Tab Take one tablet by mouth three times per day as needed - Active Cipro 500 mg Tab Take one tablet by mouth two times per day - Active Proventil HFA 90 mcg/Actuation Aerosol Inhaler Inhale two times by mouth every four hours as needed - Active ASPIRIN 81 MGTABLET Take one tablet by mouth daily - Active Procedures Procedure Date Level Four Est Patient HBA1C Comprehensive Profile Lipid profile Venipuncture Level Three Est Patient Urinalysis Level Three Est Patient Level Four Est Patient Level Four Est Patient Copay Fee Level Four Est Patient Venipuncture Level Three Est Patient Level Four Est Patient HBA1C Comprehensive Profile Lipid profile Venipuncture Level Two Est Patient Toradol-Ketorolac Per 30 MG Level Three Est Patient Toradol-Ketorolac Per 30 MG Level Three Est Patient Level Three Est Patient Venipuncture Lipid profile MET Profile Level Three Est Patient Level Four Est Patient HBA1C Venipuncture Level Three Est Patient Level Two Est Patient Venipuncture Electrolyte panel CBC Venipuncture Level Three Est Patient CBC SGOT Venipuncture Level Four Est Patient Sed Rate Venipuncture Office consultation, New/Est moderate-hi gh Sev CBC Sed Rate Venipuncture Level Three Est Patient Venipuncture HBA1C Urinalysis Urinalysis Level Three Est Patient Urinalysis Urinalysis Level Three Est Patient Level Three Est Patient uric acid, blood CBC MET Profile Venipuncture HBA1C Comprehensive Profile Lipid profile Venipuncture Level Three Est Patient Electrocardiogram report Advance Directives Directive Yes / No Effective Date File Name No Information Encounters Encounter Description Practice Location Reason(s) For Visit Diagnoses Date Provider Providers Copied on Encounter [employer], [address] [address], [place], [id number], [phone] [employer] No Information 0-201 1 Ruth Serrano. [address] [address], [place], [address], . [phone] [employer], [address] [place], [id number], tel:[phone] [employer] No Information 9200 8 Remedios Ely. [address] [address], [place], [address], [place]. [phone] [employer], [address] [place], [id number], [phone] [employer] No Information 0200 8 Remedios Ely. [address] [place], [address], [place]. tel:[phone] Level Four Est Patient [employer], [address] [place], [id number], tel:[phone] [employer] 4-6 weeks (chief complaint) No Information 1-200 8 Remedios Ely. [address] [address], [place], [address], . tel:[phone] Referring Provider: Solis Solis, [address] [address], [place], [address]. tel:[phone] Level Three Est Patient [employer], [address] [facility] [address], [place], [id number], [place] tel:[phone] [employer] urinary freq/danita flank pain/hematu brennan/burning (chief complaint) No Information Jan-0 7-200 8 Remedios Ely. [address] [facility], [place], [address], [place]. tel:[phone] Referring Provider: Solis Solis, [address] [facility], [place], [address]. tel:[phone] [employer], [address] [facility], [place], [id number], [place] tel:[phone] [employer] No Information Dec-1 4-200 8 Rmeedios Ely. [address] [facility] [address], [place], [address], [place]. tel:[phone] Level Three Est Patient [employer], [address] [facility], [place], [id number], [place] tel:[phone] [employer] cough/sinus stacey/danita ear disc (chief complaint) No Information Dec- 0-200 8 Remedios Ely. [address] [facility] [address], [place], [address], [place]. tel:[phone] Referring Provider: Solis Solis, [address] [place] [address], [place], [address]. tel:[phone] Level Four Est Patient [employer], [address] [facility], [place], [id number], [place] tel:[phone] [employer] 2-3 week (chief complaint) No Information 8 Remedios Ely. [address] [facility] [address], [place], [address], [place]. tel:[phone] Referring Provider: Solis Solis, [address] [place] [address], [place], [address]. tel:[phone] Level Four Est Patient [employer], [address] [facility], [place], [id number], [place] tel:[phone] [employer] depression (chief complaint) No Information 8 Remedios Ely. [address] [facility], [place], [address], [place]. tel:[phone] Referring Provider: Solis Solis, [address], [place], [address]. tel:[phone] Level Four Est Patient [employer], [address] [facility], [place], [id number], [place] tel:[phone] [employer] No Information 7 Remedios Ely. [address] [address], [place], [address], [place]. tel:[phone] Referring Provider: Solis Solis, [address] [facility] [address], [place], [address]. tel:[phone] Level Three Est Patient [employer], [address] [facility], [place], [id number], [place] tel:[phone] [employer] cold symptoms (chief complaint) TOBACCO USE DISORDERASTH MA NOSEPILEPSYA CUTE BRONCHITISSE MAR OTITIS MEDIATOBACCO USE DISORDER 7 Devon Palafox. [address], [address], [place], [address], [place]. tel:[phone] Referring Provider: Javy Mckeon, [address], [place], [address]. tel:[phone] Level Four Est Patient [employer], [address] [facility], [place], [id number], [place] tel:[phone] [employer] No Information 7 Remedios Ely. [address], [facility] [address], [place], [address], [place]. tel:[phone] Referring Provider: Solis Solis, [address], [place], [address]. tel:[phone] Level Two Est Patient [employer], [address] [facility] [address], [place], [id number], [place] [phone] [employer] No Information 7 Lorena Garcia. [address] [facility] [address], [place], [address], [place]. tel:[phone] Referring Provider: Suresh DANIELS, [address] [place] [address] [address], [place], [address]. tel:[phone] Level Three Est Patient [employer], [address] [facility] [address], [place], [id number], [place] tel:[phone] [employer] DMII WO CMP NT ST UNCNTRHYPERL IPIDEMIA NEC/NOSDEPRE SSIVE DISORDER NEC 7 Lorena Garcia. [address] [facility] [address], [place], [address], [place]. tel:[phone] Referring Provider: Suresh DANIELS, [address] [facility] [address], [place], [address]. tel:[phone] Level Three Est Patient [employer], [address] [address], [place], [id number], [place] [phone] [employer] No Information 7 MD Osbaldo Boucher . [address] [facility] [address], [place], [address], [place]. tel:[phone] Level Three Est Patient [employer], [address] [facility], [place], [id number], [place] tel:[phone] [employer] ASTHMA NOSEPILEPSYH YPERLIPIDEMI A NEC/NOS 7 Remedios Ely. [address] [facility] [address], [place], [address], [place]. tel:[phone] Referring Provider: Solis Solis, [address] [place] [address], [place], [address]. tel:[phone] [employer], [address] [address], [place], [id number], [place] tel:[phone] [employer] No Information 7 Remedios Ely. [address] [address], [place], [address], [place]. tel:[phone] Referring Provider: Solis Solis, [address] [address], [place], [address]. tel:[phone] Level Three Est Patient [employer], [address] [address], [place], [id number], [place] tel:[phone] [employer] No Information 7 Remedios Ely. [address] [address], [place], [address], [place]. [phone] Referring Provider: Solis Solis, [address] [place] [address], [place], [address]. tel:[phone] Level Four Est Patient [employer], [address] [address], [place], [id number], [place] tel:[phone] [employer] No Information 7 Remedios Ely. [address] [address], [place], [address], [place]. [phone] Level Three Est Patient [employer], [address] [address], [place], [id number], [place] tel:[phone] [employer] No Information 7 Ruth Serrano. [address] [facility] [address], [place], [address], [place]. tel:[phone] Referring Provider: Zach Lam, [address] [place] [address], [place], [address]. tel:[phone] Level Two Est Patient [employer], [address] [address], [place], [id number], [place] tel:[phone] [employer] No Information 7 Ken Torres. [address] [facility], [address], [place]. tel:[phone] [employer], [address] [address], [place], [id number], [place] tel:[phone] [employer] No Information Ascencion-0 9-200 7 Remedios Ely. [address] [facility] [address], [place], [address], [place]. [phone] Referring Provider: Solis Solis, [address] [facility] [address], [place], [address]. [phone] [employer], [address] [place] [address], [place], [id number], [place] tel:[phone] [employer] No Information Dec-2 8-200 6 Remedios Ely. [address] [address], [place], [address], [place]. [phone] Referring Provider: Solis Solis, [address] [place] [address], [place], [address]. [phone] Level Three Est Patient [employer], [address] [place] [address], [place], [id number], [place] tel:[phone] [employer] No Information Aug-2 7-200 6 Remedios Ely. [address] [facility] [address], [place], [address], [place]. tel:[phone] [employer], [address] [place] [address], [place], [id number], [place] tel:[phone] [employer] No Information Nov-2 0-200 6 Remedios Ely. [address] [facility] [address], [place], [address], [place]. [phone] Referring Provider: Solis Solis, [address] [place] [address], [place], [address]. tel:[phone] Level Four Est Patient [facility], [address] [place] [address], [place], [id number], [place] tel:[phone] [employer] No Information Oct-0 4-200 6 Remedios Ely. [address] [facility] [address], [place], [address], [place]. [phone] Referring Provider: Solis Solis, [address] [facility] [address], [place], [address]. [phone] [employer], [address] [facility], [place], [id number], [place] tel:[phone] [employer] No Information Oct-0 2-200 6 Remedios Ely. [address] [facility], [facility] 109, [place], [address], [place]. tel:[phone] [employer], [address] [address], [place], [id number], [place] tel:[phone] [employer] No Information Sep-2 200 6 Remedios Ely. [address] [facility] [address], [place], [address], [place]. [phone] Office consultation , New/Est moderate-hig h Sev [employer], [address] [address], [place], [id number], [place] tel:[phone] [facility] No Information Jun-1 2200 6 Nina Yeung. [address] [facility], [place], [address], [place]. tel:[phone] Referring Provider: Donte JACKSON, [address] [facility], [place], [address]. [phone] [employer], [address] [address], [place], [id number], [place] tel:[phone] [employer] No Information Sep-0 5-200 6 Devon Palafox. [address] [facility] [address], [place], [address], [place]. [phone] Level Three Est Patient [employer], [address] [address], [place], [id number], [place] tel:[phone] [employer] No Information Aug-2 200 6 Remedios Ely. [address] [facility] [address], [place], [address], [place]. [phone] Referring Provider: Solis Solis, [address] [facility] [address], [place], [address]. tel:[phone] [employer], [address] [facility], [place], [id number], [place] tel:[phone] [employer] No Information 6 Remedios Ely. [address] [facility] [address], [place], [address], [place]. [phone] Referring Provider: Slois Solis, [address] [facility] [address], [place], [address]. tel:[phone] [employer], [address] [facility], [place], [id number], [place] tel:[phone] [employer] No Information 6 MD Osbaldo Boucher . [address] [facility] [address], [place], [address], [place]. [phone] [employer], [address] [address], [place], [id number], [place] tel: [phone] [employer] No Information 6 MD Osbaldo Boucher . [address] [facility] [address], [place], [address], [place]. [phone] Level Three Est Patient [employer], [address] [address], [place], [id number], [place] tel: [phone] [employer] No Information 6 Remedios Ely. [address] [facility] [address], [place], [address], [place]. tel: [phone] [employer], [address] [facility] [address], [place], [id number], [place] tel:[phone] [employer] No Information 6 Remedios Ely. [address] [facility] [address], [place], [address], [place]. tel:[phone] Level Three Est Patient [facility], [address] [facility] [address], [place], [id number], [place] [phone] [employer] No Information Apr-1 8-200 6 No Information Level Three Est [facility], [address] [facility] [address], [place], [id number], [place] [phone] [employer] No Information Ludwin-0 7-200 6 Remedios Ely. [address] [facility] [address], [place], [address], [place]. tel:[phone] Referring Provider: Solis Solis, [address] [facility] [address], [place], [address]. tel:[phone] [employer], [address] [address], [place], [id number], [place] [phone] [employer] No Information Ludwin-0 6-200 6 Remedios Ely. [address] [facility] [address], [place], [address], [place]. tel:[phone] Referring Provider: Solis Solis, [address] [facility] [address], [place], [address]. tel:[phone] [employer], [address] [facility], [place], [id number], [place] [phone] [employer] No Information February-1 5-200 6 Remedios Ely. [address] [facility] [address], [place], [address], [place]. tel:[phone] Referring Provider: Solis Solis, [address] [facility] [address], [place], [address]. tel:[phone] Level Three Est Patient [facility], [address] [facility] [address], [place], [id number], [place] [phone] [employer] No Information February-0 9-200 6 Remedios Ely. [address] [facility] [address], [place], [address], [place]. tel:[phone] [employer], [address] [facility], [place], [id number], [place] tel:[phone] [facility] No Information Dec-0 7200 6 Devon Palafox. [address] [facility], [address], [place], [address], [place]. tel:[phone] Family History Family Member Type Diagnosis Age At Onset Mother Problem (finding) Depression Payers Payer name Insurance type Covered green party ID Authoriza tishari(s) [facility] [id number] Social History Type Description Quantity Date Captured Comments Sex Female Smoking Status No Information Chief Complaint And Reason For Visit No Information Plan Of Treatment Date Type Action Status No Information History Of Present Illness Encounter Date Complaint History Of Prese nt Illness No Information Instructions Date Instruction Additional Infor mation No Information Assessments Type Assessment Date No Information
== END 2024-09-16 12:35 | disposition home or self-care (01) ==
PROVIDERS: PCP Nurse Practitioner Family; Visit Provider Registered Nurse
DX: Z13.9 Encounter for screening, unspecified (principal); R30.0 Dysuria

== ENCOUNTER → 2024-09-16 10:52 | Outpatient (BNVA) | payer MEDICARE, SELFPAY | PROVIDERS: PCP Nurse Practitioner Family; Visit Provider Registered Nurse | DX: R30.0 Dysuria (principal) | CPT/HCPCS: 81003; 99212 ==

== ENCOUNTER 2024-11-15 06:59 | Outpatient (AMB) | payer MEDICARE, SELFPAY ==
--- OUTSIDE RECORDS SUMMARY | 2024-11-15 07:01 | XMS_ITS | Encounter Summary ---
Author Organization [facility] lin Address [address] [place] [address] Care Team Providers Care Director Digital Catalogue Name Role Phone Zac De Leon NP Primary Care Provider + Reason for Visit * Reason Comments Mouth or throat complaint Encounter Details Date Type Department Care Team ([facility] st Contact Info) Description 11/08/2024 7:45 AM EST E-Visit [facility] Care [address] [place] [address] Shana Hanna NP [address] [place] [address] Disorder of teeth and supporting structures (Primary Dx) Social History Tobacco Use Types Packs/Day Years Used Date Smoking Tobacco: Every Day Cigarettes 0.5 31.3 Started: 08/07/1993 Passive Smoke Exposure: Never Smokeless Tobacco: Never Tobacco Cessation:Ready to Q uit: No; Counseling Given: Yes Comments No Sex and Gender Information Value Date Recorded Sex Assigned at Not on file Legal Sex Female 4:35 PM EDT Gender Identity Not on file Sexual Orientation Not on file documented as of this encounter Last Filed Vital Signs Vital Sign Reading Time Taken Comments Blood Pressure - - Pulse - - Temperature - - Respiratory Rate - - Oxygen Saturation - - Inhaled Oxygen Concentration - - Weight 59.9 kg (132 lb) 11/08/2024 7:53 AM EST Height 156.8 cm (5' 1.75 ) 11/08/2024 7:53 AM ES T Body Mass Index 24.34 11/08/2024 7:53 AM EST documented in this encounter Functional Status * Is the person deaf or does he/she have serious difficulty hearing? Answer Date of Assessment Author * Is this person blind or does he/she have serious difficulty seeing even when wearing glasses? Answer Date of Assessment Author * Does this person have serious difficulty walking or climbing stairs? Answer Date of Assessment Author * Does this person have difficulty dressing or bathing? Answer Date of Assessment Author * Because of a physical, mental, or emotional condition, does this person have difficulty doing errands alone such as visiting a doctor's office or shopping? Answer Date of Assessment Author documented as of this encounter Mental Status * Because of a physical, mental, or emotional condition, does this person have serious difficulty concentrating, remembering, or making decisions? Answer Entry Date Author documented in this encounter Patient Instructions * Patient Instructions* Shana Hanna NP - 11/08/2024 7:45 AM EST Seek immediate emergency medical attention if you experience severe or worsening abdominal pain, difficulty swallowing, stiff neck, shortness of breath, coughing or vomiting up blood, chest pain, increased fever, unexplained weight loss, or blood in stool. Follow up with your dentist/dental practitioner within 3 days or sooner if symptoms continue or getworse. Report to the nearest emergency room for sudden increase in pain, difficulty swallowing, or inability to open the mouth fully. Oral Health / Dental Pain for Adults It is important to take the medications and follow up with your dentist as directed. If your symptoms get worse or you are having a sudden increase in pain, swelling, fever, trouble swallowing or cannot open your mouth fully, go to the nearest emergency room or urgent care center. Why is oral health important? Cavities and tooth decay can happen anytime in life. When not treated, even a simple cavity can lead to health problems. You are at risk for s infection, tooth loss and possible damage to the bone and nerves of your jaw. An infection can also spread to other parts of your body. On rare occasions, this can be life threatening. The good news is that dental disease is often preventable. Research shows health conditions such as heart disease, diabetes, stroke, and pneumonia may be associated with infections of the mouth. Good oral hygiene not only leads to a healthy mouth but also positively impacts your overall health. How can I maintain good oral health? Brushing your teeth two times per day. Use a soft-bristled toothbrush or a powered toothbrush and fluoride toothpaste. Floss your teeth as least once per day. Eat a balanced diet and limit between-meal snacks. See your dentist on a regular basis. Have your teeth cleaned at least twice a year. Don???t use tobacco products. What are some common causes of dental pain? Gum disease (gingivitis) is an inflammation of the tissues which hold your teeth in place. It is caused by plaque build-up. It is curable if treated by a dentist. Periodontitis is a serious condition which occurs when gingivitis is not treated. It can lead to tooth loss and jaw bone damage. Teeth grinding often occur while you are sleeping and may be related to stress or a sleep disorder.It can cause damage to your teeth and jaw. Sensitive teeth to hot or cold foods and beverages can happen for a number of reasons. Talk to yourdentist to find the cause and learn about treatment options. Tooth discoloration often occurs over time as your teeth become stained by everyday foods. Tobacco use can also cause tooth discoloration. If you are considering teeth whitening, consult with your dentist for options that are appropriate for you. Trauma / cracked tooth Dental Abscess is an infection of one or more teeth. Treatment of the infection by a dentist is very important in stopping the spreading of the infection. How can I learn more? The first step is visiting your dentist regularly. They will know the most about your personal oralhealth. To find a dentist in your area, call [phone] For more information about maintaining healthy mouth and teeth, go to: www.mouthhealthy.org or www.ada.org documented in this encounter Progress Notes * Shana Hanna NP - 11/08/2024 7:45 AM EST Images from the original note were not included. Virtual Visit Subjective: Subjective Patient ID: Shelly Nieves is a 54 y.o. female. HPI Patient reports infected tooth L central tooth Patient was seen at the dentist last year - wears dentures, cannot fit them presently over affectedtooth 2/2 pain. I have verified the patient's location and am licensed to practice in that state. Audio and video technology were used to conduct this virtual visit. Patient (or parent/guardian as applicable) consented to virtual care. If patient is a minor, parent/guardian and patient are both present for the duration of the visit. Mouth or throat complaint Duration of current symptoms: 2 days Associated symptoms: fever (TMAX 100.1), neck stiffness (pulled her neck prior to this issue) and other Associated symptoms: no appetite change Red flag features: no Muffled or hot potato voapplying ice, no hoarseness, no drooling, no stridor, no respiratory distress and no Sniffing or tripod positions Treatments tried: Applying heat, applying ice and [id number] medication (tylenol, ibuprofen) Worsened by: cold liquid and heat Response to treatment: Relieved symptoms Relief: mild relief Special considerations: None apply Review of Systems Constitutional: Positive for fever (TMAX 100.1). Negative for appetite change. Musculoskeletal: Positive for neck stiffness (pulled her neck prior to this issue). Social History Tobacco Use Smoking Status Every Day Current packs/day: 0.50 Average packs/day: 0.5 packs/day for 31.3 years (15.6 ttl pk-yrs) Types: Cigarettes Start date: 08/07/1993 Passive exposure: Never Smokeless Tobacco Never Past Medical History: Diagnosis Date Allergic disorder Anxiety Asthma ([facility]) COPD (chronic obstructive pulmonary disease) ([facility]) Diabetes mellitus ([facility] and [facility]) Past Surgical History: Procedure Laterality Date HYSTERECTOMY No family history on file. Objective: Objective Physical Exam Constitutional: General: She is not in acute distress. Appearance: Normal appearance. She is not ill-appearing, toxic-appearing or diaphoretic. HENT: Mouth/Throat: Lips: Jewell. Mouth: Mucous membranes are moist. Dentition: Abnormal dentition. Dental tenderness, gingival swelling and dental caries present. Pharynx: Oropharynx is clear. Uvula midline. Comments: Circled tooth broken with decay, surrounding gingiva swollen and erythematous Pulmonary: Effort: Pulmonary effort is normal. Comments: Patient appears to be breathing comfortably and is in no acute distress. Lymphadenopathy: Head: Right side of head: Tonsillar adenopathy present. Left side of head: No tonsillar adenopathy. Cervical: No cervical adenopathy. Right cervical: No superficial cervical adenopathy. Left cervical: No superficial cervical adenopathy. Comments: Provider guided patient in palpation of tonsillar and anterior cervical lymphnodes. Pt performed successfully in view of camera Neurological: Mental Status: She is alert. Psychiatric: Mood and Affect: Mood normal. Behavior: Behavior normal. Please note physical exam limited by video visit platform. Assessment/Plan: Assessment Based on today's history and physical exam only, as no relevant testing deemed necessary patient's visit diagnosis is/includes 1. Disorder of teeth and supporting structures Patient has a history of chronic conditions Treatment plan includes: Orders Placed: No orders of the defined types were placed in this encounter. Medications ordered this visit Signed Prescriptions Disp Refills amoxicillin-clavulanate (AUGMENTIN) 875-125 mg tablet 20 tablet 0 Sig: Take 1 tablet by mouth 2 (two) times a day for 10 days ibuprofen (MOTRIN) 600 MG tablet Sig: Take 1 tablet (600 mg total) by mouth every 6 (six) hours as needed for mild pain or moderate pain for up to 5 days Current medication list and any new medications prescribed or recommended today were reviewed with the patient and specific instructions were provided Yes Provider Recommendations Please follow-up with a dental provider within the next 48-72 hours. After every episode of eating please use antiseptic rinse or warm water/salt mixture to rinse to eliminate food debris. Should you develop fevers, become unable to open/close your mouth, swallow, move your tongue or develop SOB or chest pain please call 911 or go directly to the ER. If you have any questions or concerns about your visit, please contact our [email or web address] customer support center at [phone] It was a pleasure to care for you today! At the conclusion of your visit, you will receive an emailto complete a survey. We would truly appreciate it if you would fill this out. We strive for all 10's. Follow up care instructions were provided to the Patient. All questions answered. Patient verbalized understanding of plan of care today. HPI Section HPI provided by Patient Visit was performed virtually documented in this encounter Plan of Treatment Not on file documented as of this encounter Visit Diagnoses Diagnosis Disorder of teeth and supporting structures- Primary Unspecified disorder of the teeth and supporting structures documented in this encounter Care Teams Director Digital Catalogue Relationship Specialty Start Date End Date Zac De Leon NP [address] [place] [address] PCP - General Family Medicine 11/08/24 documented as of this encounter
--- OUTSIDE RECORDS SUMMARY | 2024-11-15 07:01 | XMS_ITS | Continuity of Care Document ---
Author Organization [facility] Address [address] [facility] [address] [place] [address] Phone Care Team Providers Care Real Estate Agent/Broker Name Role Phone Ruth MANCILLA, Zach Unavailable [...] Diagnoses Date Provider Providers Copied on Encounter [employer], [address] [address], [place], [id number], [phone] [facility] [facility] No Information 0-201 1 Ruth Serrano. [address] [address], [place], [address], . [phone] [employer], [address] [place], [id number], tel:[phone] [employer] [facility] No Information 9200 8 Remedios Ely. [address] [address], [place], [address], [place]. [phone] [employer], [address] [place], [id number], [phone] [facility] [facility] No Information 0200 8 Remedios Ely. [address] [place], [address], [place]. tel:[phone] Level Four Est Patient [employer], [address] [place], [id number], tel:[phone] [facility] [facility] 4-6 weeks (chief complaint) No Information 1-200 8 Remedios Ely. [address] [address], [place], [address], . tel:[phone] Referring Provider: Solis Solis, [address] [address], [place], [address]. tel:[phone] Level Three Est Patient [employer], [address] [facility] 109, [place], [id number], [place] tel:[phone] [employer] urinary freq/danita flank pain/hematu brennan/burning (chief complaint) No Information Jan-0 7-200 8 Remedios Ely. [address] [facility] [address], [place], [address], [place]. tel:[phone] Referring Provider: Solis Solis, [address] [facility] [address], [place], [address]. tel:[phone] [employer], [address] [facility] 109, [place], [id number], [place] tel:[phone] [facility] [facility] No Information Dec-1 4-200 8 Remedios Ely. [address] [facility] [address], [place], [address], [place]. tel:[phone] Level Three Est Patient [employer], [address] [facility] 109, [place], [id number], [place] tel:[phone] [employer] cough/sinus stacey/danita ear disc (chief complaint) No Information Dec- 0-200 8 Remedios Ely. [address] [facility] 109, [place], [address], [place]. tel:[phone] Referring Provider: Solis Solis, [address] [place] [address], [place], [address]. tel:[phone] Level Four Est Patient [employer], [address] [facility] 109, [place], [id number], [place] tel:[phone] [facility] [facility] 2-3 week (chief complaint) No Information 8 Remedios Ely. [address] [facility] 109, [place], [address], [place]. tel:[phone] Referring Provider: Solis Solis, [address] [place] [address], [place], [address]. tel:[phone] Level Four Est Patient [employer], [address] [facility] 109, [place], [id number], [place] tel:[phone] [employer] depression (chief complaint) No Information [address] [facility], [address], [place], [address], [place]. tel:[phone] Referring Provider: Solis Solis, [address] [facility] [address], [place], [address]. tel:[phone] Level Four Est Patient [facility] [facility], [address] [facility], [place], [id number], [place] tel:[phone] [facility] [facility] No Information [address] [facility], [facility] 109, [place], [address], [place]. tel:[phone] Referring Provider: Solis Solis, [address] [facility] 109, [place], [address]. tel:[phone] Level Three Est Patient [employer], [address] [facility] [address], [place], [id number], [place] tel:[phone] [facility] cold symptoms (chief complaint) TOBACCO USE DISORDERASTH MA NOSEPILEPSYA CUTE BRONCHITISSE MAR OTITIS MEDIATOBACCO USE DISORDER [address] [facility], [address], [place], [address], [place]. tel:[phone] Referring Provider: Javy Mckeon, [address] [facility] [address], [place], [address]. tel:[phone] Level Four Est Patient [employer], [address] [facility] 109, [place], [id number], [place] tel:[phone] [employer] No Information [address] [facility], [facility] 109, [place], [address], [place]. tel:[phone] Referring Provider: Solis Solis, [address] [facility] [address], [place], [address]. tel:[phone] Level Two Est Patient [employer], [address] [facility] 109, [place], [id number], [place] [phone] [facility] [facility] No Information 7 Lorena Garcia. [address] [facility] 109, [place], [address], [place]. tel:[phone] Referring Provider: Suresh DANIELS, [address] [place] [address] [address], [place], [address]. tel:[phone] Level Three Est Patient [facility] [facility], [address] [facility] 109, [place], [id number], [place] tel:[phone] [facility] [facility] DMII WO CMP NT ST UNCNTRHYPERL IPIDEMIA NEC/NOSDEPRE SSIVE DISORDER NEC 7 Lorena Garcia. [address] [facility] 109, [place], [address], [place]. tel:[phone] Referring Provider: Suresh DANIELS, [address] [facility] [address], [place], [address]. tel:[phone] Level Three Est Patient [employer], [address] [address], [place], [id number], [place] [phone] [facility] [facility] No Information 7 MD Osbalod Boucher . [address] [facility] [address], [place], [address], [place]. tel:[phone] Level Three Est Patient [employer] [facility], [address] [facility] [address], [place], [id number], [place] tel:[phone] [facility] ASTHMA NOSEPILEPSYH YPERLIPIDEMI A NEC/NOS 7 Remedios Ely. [address] [facility] 109, [place], [address], [place]. tel:[phone] Referring Provider: Solis Solis, [address] [place] [address], [place], [address]. tel:[phone] [facility], [address] [address], [place], [id number], [place] tel:[phone] [facility] [facility] No Information 7 Remedios Ely. [address] [address], [place], [address], [place]. tel:[phone] Referring Provider: Solis Solis, [address] [address], [place], [address]. tel:[phone] Level Three Est Patient [employer] [employer], [address] [address], [place], [id number], [place] tel:[phone] [facility] [facility] No Information 7 Remedios Ely. [address] [address], [place], [address], [place]. [phone] Referring Provider: Solis Solis, [address] [place] [address], [place], [address]. tel:[phone] Level Four Est Patient [facility], [address] [address], [place], [id number], [place] tel:[phone] [facility] [facility] No Information 7 Remedios Ely. [address] [address], [place], [address], [place]. [phone] Level Three Est Patient [employer], [address] [address], [place], [id number], [place] tel:[phone] [facility] [facility] No Information 7 Ruth Serrano. [address] [facility] [address], [place], [address], [place]. tel:[phone] Referring Provider: Zach Lam, [address] [place] [address], [place], [address]. tel:[phone] Level Two Est Patient [facility] [facility], [address] [address], [place], [id number], [place] tel:[phone] [facility] [facility] No Information 7 Ken Torres. [address] [facility] [place], [address], [place]. tel:[phone] [employer] [facility], [address] [address], [place], [id number], [place] tel:[phone] [employer] [facility] No Information Ascencion-0 9-200 7 Remedios Ely. [address] [facility] 109, [place], [address], [place]. [phone] Referring Provider: Solis Solis, [address] [facility] [address], [place], [address]. [phone] [employer], [address] [place] [address], [place], [id number], [place] tel:[phone] [facility] No Information Dec-2 8-200 6 Remedios Ely. [address] [address], [place], [address], [place]. [phone] Referring Provider: Solis Solis, [address] [place] [address], [place], [address]. [phone] Level Three Est Patient [employer], [address] [place] [address], [place], [id number], [place] tel:[phone] [facility] [facility] No Information Aug-2 7-200 6 Remedios Ely. [address] [facility] 109, [place], [address], [place]. tel:[phone] [employer], [address] [place] [address], [place], [id number], [place] tel:[phone] [facility] [facility] No Information Nov-2 0-200 6 Remedios Ely. [address] [facility] [address], [place], [address], [place]. [phone] Referring Provider: Solis Solis, [address] [place] [address], [place], [address]. tel:[phone] Level Four Est Patient [employer], [address] [place] [address] 109, [place], [id number], [place] tel:[phone] [facility] [facility] No Information Oct-0 4-200 6 Remedios Ely. [address] [facility] 109, [place], [address], [place]. [phone] Referring Provider: Solis Solis, [address] [facility] [address], [place], [address]. [phone] [employer], [address] [facility] 109, [place], [id number], [place] tel:[phone] [facility] [facility] No Information Oct-0 2-200 [address] [facility], [facility] 109, [place], [address], [place]. tel:[phone] [facility], [address] [address], [place], [id number], [place] tel:[phone] [facility] [facility] No Information Sep-2 200 6 Remedios Ely. [address] [facility] 109, [place], [address], [place]. [phone] Office consultation , New/Est moderate-hig h Sev [employer], [address] [address], [place], [id number], [place] tel:[phone] [facility] No Information Jun-1 2200 6 Nina Yeung. [address] [facility], [place], [address], [place]. tel:[phone] Referring Provider: Donte JACKSON, [address] [facility], [place], [address]. [phone] [employer], [address] [address], [place], [id number], [place] tel:[phone] [facility] [facility] No Information Sep-0 5-200 6 Devon Palafox. [address] [facility] 109, [place], [address], [place]. [phone] Level Three Est Patient [employer], [address] [address], [place], [id number], [place] tel:[phone] [facility] [facility] No Information Aug-2 200 6 Remedios Ely. [address] [facility] 109, [place], [address], [place]. [phone] Referring Provider: Solis Solis, [address] [facility] 109, [place], [address]. tel:[phone] [employer], [address] [facility] 109, [place], [id number], [place] tel:[phone] [facility] [facility] No Information 6 Remedios lEy. [address] [facility] 109, [place], [address], [place]. tel:[phone] Referring Provider: Solis Solis, [address] [facility] 109, [place], [address]. tel:[phone] [employer], [address] [facility] 109, [place], [id number], [place] tel:[phone] [facility] [facility] No Information 6 MD Osbaldo Boucher . [address] [facility] 109, [place], [address], [place]. tel:[phone] [employer], [address] [address], [place], [id number], [place] tel: [phone] [facility] [facility] No Information 6 MD Osbaldo Boucher . [address] [facility] 109, [place], [address], [place]. [phone] Level Three Est Patient [employer], [address] [address], [place], [id number], [place] tel: [phone] [facility] [facility] No Information 6 Remedios Ely. [address] [facility] 109, [place], [address], [place]. tel: [phone] [employer], [address] [facility] 109, [place], [id number], [place] tel:[phone] [facility] [employer] No Information 6 Remedios Ely. [address] [facility] 109, [place], [address], [place]. [phone] Level Three Est Patient [employer], [address] [facility] 109, [place], [id number], [place] [phone] [facility] [facility] No Information Apr-1 8-200 6 No Information Level Three Est Patient [employer] [employer], [address] [facility] 109, [place], [id number], [place] [phone] [facility] [facility] No Information Ludwin-0 7-200 6 Remedios Ely. [address] [facility] [address], [place], [address], [place]. tel:[phone] Referring Provider: Solis Solis, [address] [facility] 109, [place], [address]. tel:[phone] [facility] [facility], [address] [address], [place], [id number], [place] [phone] [facility] No Information Ludwin-0 6-200 6 Remedios Ely. [address] [facility] [address], [place], [address], [place]. tel:[phone] Referring Provider: Solis Solis, [address] [facility] 109, [place], [address]. tel:[phone] [facility], [address] [facility] 109, [place], [id number], [place] [phone] [facility] [facility] No Information February-1 5-200 6 Remedios Ely. [address] [facility] 109, [place], [address], [place]. tel:[phone] Referring Provider: Solis Solis, [address] [facility] 109, [place], [address]. tel:[phone] Level Three Est Patient [employer], [address] [facility] 109, [place], [id number], [place] [phone] [facility] No Information February-0 9-200 6 Remedios Ely. [address] [facility] 109, [place], [address], [place]. tel:[phone] [facility], [address] [facility] 109, [place], [id number], [place] tel:[phone] [facility] No Information Dec-0 7200 [address] [facility], [address], [place], [address], [place]. tel:[phone] Family History Family Member Type Diagnosis Age At Onset Mother Problem (finding) Depression Payers Payer name Insurance type Covered libertarian ID Authoriza tishari(s) [facility] [id number] Social History Type Description Quantity Date Captured [...]
--- NOTE | 2024-11-15 07:41 | A.OFFVIS_ITS ---
Intake Visit Reasons: Stiif Neck and tingles in her fingers Allergies moxifloxacin [From Avelox] Allergy (Unknown, Verified 09/16/24 11:36) hives Sulfa (Sulfonamide Antibiotics) Allergy (Unknown, Verified 09/16/24 11:36) hives doxycycline Adverse Reaction (Unknown, Verified 09/16/24 11:36) contraindicated Medication List - Last Reconciled 11/15/24 by Zac De Leon, DENTAL TECHNICIAN METAL- albuterol sulfate 90 mcg/actuation 2 puffs inhalation Q6H PRN aripiprazole 10 mg PO DAILY 90 days aspirin 325 mg PO DAILY atorvastatin 40 mg PO BEDTIME blood sugar diagnostic (Torrential Verio test strips) check blood glucose tid ac and for hypo/hyperglycemic episodes dexamethasone 4 mg PO DAILY 9 days ferrous sulfate 324 mg PO BID fexofenadine-pseudoephedrine 60-120 mg ER (Sofi-D 12 Hour) 1 tab PO .QD PRN ibuprofen 800 mg PO Q6H PRN insulin degludec (Tresiba FlexTouch U-100 insulin) 14 units (0.14 mL) subcut BEDTIME lancets tid testing metformin 1,000 mg PO BID Myrbetriq ER (mirabegron) 50 mg PO DAILY 90 days NS nitrofurantoin monohyd/m-cryst 100 mg 100 mg PO Q12H 5 days pen needle, diabetic (Easy Touch) As directed to inject insulin once a day sertraline 150 mg (1.5 x 100 mg) PO DAILY suvorexant (Belsomra) 15 mg PO BEDTIME 30 days tizanidine 2 mg PO TID PRN HPI HPI Stiif Neck and tingles in her fingers: Details: History of Present Illness The patient is a 54-year-old female presenting with worsening neck pain with associated bilateral upper extremity radiculopathy. Approximately one month ago, she experienced a seizure, after which she developed severe neck pain. This pain radiates down both upper extremities. The symptoms have not improved and have worsened over time. The patient describes exacerbation of neck pain with movements such as turning her head and performing chin tucks or chin raises. She reports significant radiculopathy along with full range of motion in her bilateral extremities. There is no mention of acute seizures following the initial event. She has a known history of seizures. Previous medical interventions are unspecified; however, current management includes the medication tizanidine, which has been ineffective. The patient is also diagnosed with diabetes mellitus, which is relevant to current treatment considerations. Pt reports swelling of her hands/fingers, and minimal to BLE. Will order a BNP, encouraged her to get labs drawn. Pt reports some SOB (since having a cold months ago), denies CP, HOLLINS, blurred vision, Hx of smoking (actively still), referring for LDCT. Pt knows with any worsening symptoms to go to the ER. Review of Systems - Neurological: Reports history of seizures. - Musculoskeletal: Reports severe neck pain with bilateral upper extremity radiculopathy, exacerbated by neck movements. PE: In no acute distress A+Ox3 speaking in full sentences Plan - Order MRI to evaluate for herniated disc and possible compression fracture. - Discontinue tizanidine; initiate cyclobenzaprine for muscle relaxation. - Prescribe dexamethasone taper; monitor blood glucose levels due to potential hyperglycemia. - Schedule a follow-up appointment to review MRI results and adjust treatment f or diabetes mellitus. Patient was informed and verbally consented to the use of an ambient scribe for clinic note documentation during this visit. Discussion Notes During today's telehealth visit, I discussed with the patient the probable causes of her symptoms, including a herniated disc or compression fracture. A cervical MRI was proposed to assess the structural conditions related to her sy mptoms. I explained the decision to change her muscle relaxant from tizanidine to cyclobenzaprine due to lack of efficacy. Additionally, I recommended a dexamethasone taper to address inflammation, with a clear explanation that this may elevate her blood glucose levels. Instructions were provided regarding the monitoring of blood sugar. The patient expressed an understanding of the management plan, including the pain management strategy and potential implications for her diabetes management. We agreed to follow up after completion of the MRI and evaluate her progress and current condition at the next appointment. Patient Instructions - Undergo the MRI scan as ordered to assess neck condition. - Begin cyclobenzaprine as prescribed for muscle relaxation. - Start dexamethasone taper as advised; watch for any increase in blood glucose levels. - Monitor blood sugar regularly if diabetic. - Return to the clinic for a follow-up appointment as scheduled. [facility] Medical History (Updated 11/15/24 @ 07:32 by Zac De Leon, DENTAL TECHNICIAN METAL-) Insomnia Frontal headache Complaint of nasal congestion Acute sinusitis Stroke Sinusitis, chronic Chronic sinusitis Nontraumatic incomplete tear of right rotator cuff Dawit's paralysis Cervical neck pain with evidence of disc disease Basal cell carcinoma Ulcerative colitis Thyroid nodule Diabetes Smoker Epilepsy Surgical History History of abdominal hysterectomy History of tonsillectomy and adenoidectomy Family History Father Esophageal cancer Prostate CA Mental health disorder Mother Uterine cancer Depression Mental health disorder Maternal Grandmother Kidney problem Maternal Grandfather Diabetes mellitus Stroke Throat cancer Myocardial infarction Paternal Grandfather No problems noted. Paternal Grandmother No problems noted. Brother No problems noted. Sister Mental health disorder Daughter No problems noted. Daughter No problems noted. Social History Housing: House Alcohol intake: current Alcohol intake frequency: a few times a month Patient Tobacco Use Status: Current everyday Tobacco user e-Cigarette/Vaping Use: Currently Using Second Hand Smoke Exposure: No Substance Use Type: Marijuana service: No Current occupational status: disabled Cognitive needs: No Hearing needs: No Vision needs: No Telehealth Telehealth Telehealth Platform: [facility] Location of provider rendering services: practice address Location of patient: address on file Patient Identification confirmed using: Name, : Yes Telehealth method: video Patient verbally consented to treatment: Yes Patient verbally consented to billing insurance company: Yes Patient informed of any privacy concerns related to visit: Yes Minutes spent on Phone/Video with Pt.: 15 Assessment & Plan Assessment & Plan (1) Smoker: Code(s): F17.200 - Nicotine dependence, unspecified, uncomplicated Category: Social Hx (2) Diabetes: Code(s): E11.9 - Type 2 diabetes mellitus without complications Category: Medical Plan: . (3) Cervical disc disorder with radiculopathy, unspecified cervical region: Code(s): M50.10 - Cervical disc disorder with radiculopathy, unspecified cervical region Category: Medical Plan . Orders: Orders Complete Blood Count Auto Diff Today E11.9 - Type 2 diabetes mellitus without complications Comprehensive [place]. Panel Fast Today E11.9 - Type 2 diabetes mellitus without complications TSH reflex Free T4 Today E11.9 - Type 2 diabetes mellitus without complications UA CC w/rflx Micro + Cult Today E11.9 - Type 2 diabetes mellitus without c omplications Lipid Panel Today E11.9 - Type 2 diabetes mellitus without complications MR cervical spine wo con Today G40.909 - Epilepsy, unspecified, not intractable, without status epilepticus, M50.10 - Cervical disc disorder with radiculopathy, unspecified cervical region Vitamin D 25-OH Total Today E55.9 - Vitamin D deficiency, unspecified B Type Natriuretic Peptide Today R60.9 - Edema, unspecified Microalbumin, Random (w Creat) Today E11.9 - Type 2 diabetes mellitus without complications Referrals Lung Cancer Screening Referral F17.200 - Nicotine dependence, unspecified, uncomplicated Medications: New dexamethasone 1 tab three times a day for 3 days, 1 tab twice a day for 3 days, 1 tab daily for 3 days 4 mg PO DAILY 9 days 18 tabs 0RF cyclobenzaprine 10 mg PO BID 20 days PRN 40 tabs 0RF muscle spasm Discontinued tizanidine Discontinued Reason: Doctor's Order 2 mg PO TID PRN 90 tabs 0RF for muscle spasm Coding Level of Care Code Tele Est Pt Level 3 (13918) Diagnoses Smoker F17.200 Diabetes E11.9 Cervical disc disorder with radiculopathy, unspecified cervical region M50.10
== END 2024-11-15 09:02 | disposition home or self-care (01) ==
PROVIDERS: PCP Nurse Practitioner Family; Visit Provider Nurse Practitioner Family
DX: F17.200 Nicotine dependence, unspecified, uncomplicated (principal); E11.9 Type 2 diabetes mellitus without complications; M50.10 Cervical disc disorder with radiculopathy, unspecified cervical region

== ENCOUNTER → 2024-11-15 06:59 | Outpatient (BNVA) | payer MEDICARE, SELFPAY | PROVIDERS: PCP Nurse Practitioner Family; Visit Provider Nurse Practitioner Family ==

== ENCOUNTER 2024-12-16 09:43 | Outpatient (REF) | payer MEDICARE, SELFPAY ==
--- OUTSIDE RECORDS SUMMARY | 2024-12-16 11:07 | XMS_ITS | Clinical Summary ---
Author Organization [facility] lin Address [address] [facility] [place] [address] Care Team Providers Care Transportation Director Name Role Phone Zac De Leon NP Primary Care Provider + Allergies Active Allergy Reactions Criticality Noted Date Comments Moxifloxacin Hives 08/07/2024 Sulfa (Sulfonamide Antibiotics) 07/14 Medications Tresiba FlexTouch U-100 100 unit/mL (3 mL) inpn INJECT 14 UNITS SUBCUTANEOUSLY AT BEDTIME 07/16/20 24 Active metFORMIN (GLUCOPHAGE) 1000 MG tablet TAKE 1 TABLET BY MOUTH TWICE DAILY Active Myrbetriq 50 mg TAKE 1 TABLET BY MOUTH DAILY 07/17/20 24 Active sertraline (ZOLOFT) 100 MG tablet Take 1 tablet (100 mg total) by mouth Active Belsomra 15 mg tab TAKE 1 TABLET BY MOUTH AT BEDTIME Active atorvastatin (LIPITOR) 40 MG tablet TAKE 1 TABLET BY MOUTH AT BEDTIME Active aripiprazole (ABILIFY) 10 MG tablet TAKE 1 TABLET BY MOUTH DAILY 08/24/20 24 Active albuterol (PROVENTIL) 2.5 mg /3 mL (0.083 %) nebulizer solution Take 3 mL (2.5 mg total) by nebulization every 6 (six) hours as needed for wheezing Breathe as calmly, deeply and evenly as possible through mouth until no more mist is formed in the nebulizer chamber (about 5 to 15 minutes).. 75 mL 08/30/20 24 025 Active amoxicillin-cl avulanate (AUGMENTIN) 875-125 mg tablet Take 1 tablet by mouth 2 (two) times a day for 10 days 20 tablet 11/08/19 25 025 Active Problems Problem Noted Date Diagnosed Date Basal cell carcinoma of chest 02/23/2018 Basal cell carcinoma of skin of lip 11/17/2017 Current smoker 11/17/2017 Type 2 diabetes mellitus wit hout complication, without long-term current use of insulin ([facility] and [facility]) 11/17/2017 Encounters Date Type Department Care Team Description 11/08/2024 7:45 AM EST E-Visit [facility] [place] [address] [place] [id number] Shana Hanna NP Disorder of teeth and supporting structures (Primary Dx) from Last 3 Months Social History Tobacco Use Types Packs/Day Years Used Date Smoking Tobacco: Every Day Cigarettes 0.5 31.4 Started: 08/07/1993 Passive Smoke Exposure: Never Smokeless Tobacco: Never Tobacco Cessation:Ready to Q uit: No; Counseling Given: Yes Comments No Sex and Gender Information Value Date Recorded Sex Assigned at Not on file Legal Sex Female 4:35 PM EDT Gender Identity Not on file Sexual Orientation Not on file Last Filed Vital Signs Vital Sign Reading Time Taken Comments Blood Pressure 102/58 08/07/2024 1:55 PM EDT Pulse 95 08/07/2024 1:55 PM EDT Temperature 36.3 ??C (97.3 ??F) 08/07/2024 1:55 PM ED T Respiratory Rate 20 08/02/2024 2:13 PM EDT Oxygen Saturation 95% 08/07/2024 1:55 PM EDT Inhaled Oxygen Concentration - - Weight 59.9 kg (132 lb) 11/08/2024 7:53 AM EST Height 156.8 cm (5' 1.75 ) 11/08/2024 7:53 AM ES T Body Mass Index 24.34 11/08/2024 7:53 AM EST Plan of Treatment Health Maintenance Due Date Last Done Comments Colorectal Cancer: COLONOSCO PY Screening every 10 yrs (or Modifier) 1971 COVID-19 Vaccine Screening: Initial Series and Booster Status ([facility]) (#1) 1976 Pneumococcal Vaccination Scr eening: Pts 0-19 & 19-64 yrs of age ([facility] MC) (1 of 2 - PCV) 1977 Diabetes: Retinopathy Screening 1981 Depression: Screening Annual ly using PHQ-2/9 in Adults 18 yrs or above (or HM Modifier)([facility]) 1989 Diabetes Care Foot Exam Scre ening: Yearly in adults with Diabetes (or HM Modifiers)([facility]) 1989 Diabetes Care: Kidney Health Evaluation Annually in adults aged 18 to 85 yrs (or HM Modifier)([facility]) 1989 Hepatitis C Virus Infection in Adolescents and Adults: Screening (or Modifier) ([facility]) 1989 DARIO Screening: Once using ST OP-BANG Questionnaire for Adults with Conditions or high BMI([facility]) 1989 SDOH Screening Reminder: Kamala ually for all adults ([facility]) 1989 DTaP/Tdap/Td Vaccines ([facility]) (1 - Tdap) 1990 Zoster/Shingles Vaccine Seri es Screening: Adults aged 18+ yrs (or HM Modifiers)([facility]) (1 of 2) 1990 Colorectal Cancer Screening 45 -75 Yrs (or HM Modifier) 2016 Colorectal Cancer: FLEXIBLE SIGMOIDOSCOPY Screening every 5 yrs 2016 Colorectal Cancer: Fecal Imm unochemical Test (FIT) Annually [facility] 2016 Colorectal Cancer: High-sens itivity gFOBT Screening Annually [facility] 2016 Colorectal Cancer: Stool Col oguard Screening every 3 yrs 2016 Colorectal Cancer:CT Colonog priyank Screening every 5 yrs 2016 Lipid Screening: Every 5 yrs for Women aged 45+ (or HM Modifier) ([facility]) 2017 Breast Cancer: Screening Kamala ually age 50-74 yrs (or HM Modifier)([facility]) 2021 Flu Vaccination: Yearly for ages 18mos through 64 years (or Modifier)([facility]) 05/13/2024 Diabetes Care: Statin Therap y for adults with DM ages 21+ yrs old ([facility]) 08/02/2025 08/02/2024 Tobacco Smoking Cessation: i n Adults excluding Women: Behavioral and Pharmacotherapy Interventions ([facility]) 11/08/2025 11/08/2024 Medical Devices Not on file Insurance MEDICARE Care Teams Transportation Director Relationship Specialty Start Date End Date Zac De Leon NP [address] [place] [address] PCP - General Family Medicine 11/08/24
[2024-12-16 13:05] LABS: Appearance Urine Clear; Color Urine Yellow; Glucose Urine UA Negative (Negative); Leukocyte Esterase Urine Trace (Negative); Nitrite Urine Negative (Negative); PH 5.5 (5.0-9.0); Specific Gravity - Urine 1.015 (1.005-1.025); UMIC TRIGGER UACC YES; Urine Blood Trace (Negative); Urine Ketones Negative (Negative); Urine Protein Negative (Neg-Trace)
[2024-12-16 13:08] LABS: Bacteria Urine None Seen (None Seen); Hyaline Casts Urine 0-2 /LPF (0-2); RBC Urine 0-2 /HPF (0-2); WBC Urine 0-5 /HPF (0-5)
[2024-12-16 13:32] LABS: MANUAL DIFF FLAG NO
[2024-12-16 13:34] LABS: Basophils Absolute Auto 0.1 X10*3/uL (0.0-0.2); Basophils Percent Auto 0.6 % (0-2); Eosinophils Absolute Auto 0.3 X10*3/uL (0.0-0.4); Eosinophils Percent Auto 2.9 % (0-4); Hematocrit 38.5 % (37.0-47.0); Hemoglobin 12.8 g/dl (12.0-16.0); Imm Gran Abs Auto 0.06 X10*3/uL (0.00-0.03); Imm Gran Pct Auto 0.6 % (0.0-0.4); Lymphocytes Absolute Auto 2.7 X10*3/uL (1.2-4.9); Lymphocytes Percent Auto 27.1 % (20-40); Mean Corpuscular HGB Conc 33.2 g/dl (31.0-35.0); Mean Corpuscular Hemoglobin 30.3 pg (27.0-33.0); Mean Corpuscular Volume 91.2 fL (80.0-98.0); Mean Platelet Volume 8.9 fL (9.4-12.3); Monocytes Absolute Auto 0.8 X10*3/uL (0.1-1.2); Neutrophils Percent Auto 60.8 % (45-73); Platelet Count 497 X10*3/uL (160-400); Red Blood Count 4.22 X10*6/uL (4.20-5.50); Red Cell Distribution Width 13.1 % (11.0-16.0); White Blood Count 9.9 X10*3/uL (4.8-10.8)
[2024-12-16 14:07] LABS: Alanine Aminotransferase 28 U/L (0-31); Albumin Level 4.1 g/dL (3.5-5.0); Alkaline Phosphatase 109 U/L (39-117); Anion Gap 12 (12-20); Aspartate Amino Transferase 24 U/L (5-31); Bilirubin Total 0.1 mg/dL (0.0-1.0); Blood Urea Nitrogen 18 mg/dL (9-16); Calcium 9.4 mg/dL (8.4-10.2); Carbon Dioxide 24 mmol/L (22-29); Chloride 107 mmol/L (96-108); Cholesterol 147 mg/dL (<200); Estimated Glomerular Filt Rate > 60; Glucose Fasting 109 mg/dL (60-99); HDL Cholesterol 75 mg/dL (>40); LDL Cholesterol Calculated 45 mg/dL (<100); Potassium 5.3 mmol/L (3.3-5.1); Sodium 138 mmol/L (135-145); Total Protein 7.2 g/dL (6.5-8.0); Triglycerides 137 mg/dL (<150)
[2024-12-16 14:25] LABS: TSH reflex Free T4 0.63 uIU/mL (0.32-4.0); Vitamin D 25-OH Total 32.2 ng/mL (>30)
[2024-12-16 14:44] LABS: Creatinine Urine 78.15 mg/dL; Microalbumin Urine < 5.0 mg/L
== END 2024-12-16 09:44 | disposition home or self-care (01) ==
LOC: HO.HMGCLDS 09:43
PROVIDERS: PCP Nurse Practitioner Family; Visit Provider Nurse Practitioner Family
DX: E11.9 Type 2 diabetes mellitus without complications (principal); E55.9 Vitamin D deficiency, unspecified; R60.9 Edema, unspecified
CPT/HCPCS: 36415; 80053; 80061; 81001; 81003; 82043; 82306; 82570; 83880; 84443; 85025

== ENCOUNTER 2024-12-17 07:36 | Outpatient (AMB) | payer MEDICARE, SELFPAY ==
--- NOTE | 2024-12-17 07:36 | MHC.OFFVIS ---
Intake Visit Reasons: bladder pain/follow up Drycleaner Required: No Allergies moxifloxacin [From Avelox] Allergy (Unknown, Verified 12/17/24 07:56) hives Sulfa (Sulfonamide Antibiotics) Allergy (Unknown, Verified 12/17/24 07:56) hives doxycycline Adverse Reaction (Unknown, Verified 12/17/24 07:56) contraindicated Medication List - Last Reconciled 12/17/24 by Carlos Proctor MD albuterol sulfate 90 mcg/actuation 2 puffs inhalation Q6H PRN aripiprazole 10 mg PO DAILY 90 days aspirin 325 mg PO DAILY atorvastatin 40 mg PO BEDTIME blood sugar diagnostic ([employer] Verio test strips) check blood glucose tid ac and for hypo/hyperglycemic episodes cyclobenzaprine 10 mg PO BID PRN 20 days dexamethasone 4 mg PO DAILY 9 days diazepam 5 mg PO ONCE PRN 1 day ferrous sulfate 324 mg PO BID fexofenadine-pseudoephedrine 60-120 mg ER (Sofi-D 12 Hour) 1 tab PO .QD PRN hydroxyzine pamoate (Vistaril) 25 mg PO BEDTIME hyoscyamine sulfate (Levsin/SL) 0.125 mg PO BID ibuprofen 800 mg PO Q6H PRN insulin degludec (Tresiba FlexTouch U-100 insulin) 14 units (0.14 mL) subcut BEDTIME lancets tid testing metformin 1,000 mg PO BID Myrbetriq ER (mirabegron) 50 mg PO DAILY 90 days NS pen needle, diabetic (Easy Touch) As directed to inject insulin once a day phenazopyridine (Pyridium) 200 mg PO BID PRN sertraline 150 mg (1.5 x 100 mg) PO DAILY suvorexant (Belsomra) 15 mg PO BEDTIME 30 days HPI Comments Details: 12/17/24--Shelly is a 54-year-old female presenting with chronic urinary symptoms, including persistent frequency, burning, and bladder discomfort. Despite several evaluations, including urinalysis that intermittently indicates an absence of microbial infection, the patient describes ongoing symptoms consistent with either chronic cystitis or interstitial cystitis. Notably, she underwent diagnostic testing following microscopic hematuria findings, including a CT urogram and cystoscopy, with no genitourinary malignancy detected. Urinary Symptoms Review - Frequent sensation of UTI symptoms?burning and urgency - Consistent bladder pain and spasms - Recent primary care check-up showed a clean urinalysis - Pyridium used approximately 6 months ago for symptom relief - Persistent urgency and sensation of pressure even immediately post-voiding Results - Labs: Recent urinalysis 12/16/24-trace leuk, trace blood, negative bacteria. - Tests and Diagnostics: Previous cystoscopy and CT urogram indicated no genitourinary malignancy. 02/02/2024--Shelly is here for office cystoscopy. She is being evaluated for microscopic hematuria. She has urinary symptoms of dysuria. Comorbidity nicotine dependence. Cystoscopy today. Cystoscopy findings--no suspicious bladder lesions visualized. Discussed trial of Uribel for urinary symptoms of dysuria. Review of chart: 12/17/2023--Lupe is a 53-year-old female who is being evaluated for microscopic hematuria. Comorbidity nicotine dependence, the patient smokes cigarettes daily. She presents for telehealth visit (video attempted) to review CT scan results. I have reviewed the CT urogram that was performed on 11/19/2023. Kidneys within normal limits, no masses renal calculi visualized, bladder unremarkable. Also reviewed urine cytology performed on 10/01/2023 which was negative for malignant cells. Plan will be to have her follow-up in the office for office cystoscopy. Discussed recommendations for nicotine cessation. 10/08/2023-- Lupe is a very pleasant 53-year-old female patient of who was accompanied by her daughters at today's office visit. She has a past medical history of insomnia, headaches, stroke, chronic sinusitis, basal cell carcinoma, ulcerative colitis, diabetes, nicotine dependence, and epilepsy. She presents to the office today as a new patient for microscopic hematuria. When asked patient reports a longstanding history of nicotine dependence of over 30 years. She reports to be smoking approximately 1 pack per day. She denies any known chemical exposure. She currently denies any bothersome urinary issues or concerns. She denies urinary urgency, urinary frequency, incontinence, nocturia, hematuria, dysuria, foul smelling urine, changes to urinary stream, flank pain, fever, and or chills. She is happy with her current voiding parameters. In office urinalysis results reviewed with the patient today microscopic hematuria noted. Discussed at length potential causes of microscopic hematuria as well as further microscopic hematuria workup with in office cystoscopy, CT urogram, and urine cytology. Discussed risks and benefits of further workup versus surveillance monitoring. All questions were answered. [facility] Medical History Nicotine dependence, cigarettes, uncomplicated Insomnia Frontal headache Stroke Sinusitis, chronic Nontraumatic incomplete tear of right rotator cuff Dawit's paralysis Cervical neck pain with evidence of disc disease Basal cell carcinoma Ulcerative colitis Thyroid nodule Diabetes Epilepsy Surgical History History of cystoscopy History of abdominal hysterectomy History of tonsillectomy and adenoidectomy Family History Father Esophageal cancer Prostate CA Mental health disorder Mother Uterine cancer Depression Mental health disorder Maternal Grandmother Kidney problem Maternal Grandfather Diabetes mellitus Stroke Throat cancer Myocardial infarction Paternal Grandfather No problems noted. Paternal Grandmother No problems noted. Brother No problems noted. Sister Mental health disorder Daughter No problems noted. Daughter No problems noted. Social History Housing: House Alcohol intake: current Alcohol intake frequency: a few times a month Patient Tobacco Use Status: Current everyday Tobacco user e-Cigarette/Vaping Use: Currently Using Second Hand Smoke Exposure: No Substance Use Type: Marijuana service: No Current occupational status: disabled Cognitive needs: No Hearing needs: No Vision needs: No Review of Systems Const All systems reviewed & are unremarkable except as noted in HPI and below Reports no additional complaints Eyes Reports no additional complaints ENT Reports no additional complaints Card Reports no additional complaints Resp Reports no additional complaints GI Reports no additional complaints Reports as per HPI Musc Reports no additional complaints Skin/Breast Reports system reviewed and no additional complaints, except as documented Neuro Reports no additional complaints Psych Reports no additional complaints Endo Reports no additional complaints John/Lymph Reports no additional complaints Aller/Immun Reports no additional complaints Telehealth Telehealth Telehealth Platform: D[employer]im[employer] Location of provider rendering services: practice address Location of patient: address on file Patient Identification confirmed using: Name, : Yes Telehealth method: video Patient verbally consented to treatment: Yes Patient verbally consented to billing insurance company: Yes Patient informed of any privacy concerns related to visit: Yes Results Reviewed Results Reviewed: Date of Service: 11/19/23 EXAMINATION: CT ABDOMEN AND PELVIS WITHOUT AND WITH CONTRAST CLINICAL INFORMATION: Microscopic hematuria COMPARISON: Previous renal ultrasound July 2023, CT scan of the abdomen and pelvis May 2019 and MRI June 2019 TECHNIQUE: Noncontrast CT of the abdomen and pelvis is performed followed by split bolus contrast-enhanced images using 100 mL Omnipaque 350 contrast.? Postcontrast imaging is performed during the combined nephrogram and excretion phase. Sagittal and coronal reformatted images were obtained on the technologist's workstation for both the precontrast and postcontrast phases. This CT examination was performed using dose optimization techniques as appropriate, variously including the following: *Automated exposure control *Adjustment of mA and/or kV according to patient size (this includes techniques or standardized protocols for targeted exams where dose is matched to indication/reason for exam; i.e. extremities or head) *Use of iterative reconstruction technique DLP: 521 mGy-cm FINDINGS: LUNG BASES: The visualized lung bases are unremarkable. LIVER, GALLBLADDER, AND BILIARY TREE: The liver is normal in size, shape, and attenuation. No focal hepatic lesion or biliary ductal dilatation is present. May be a tiny gallstone in the gallbladder. The gallbladder is otherwise unremarkable. PANCREAS: Unremarkable. SPLEEN: Unremarkable. ADRENAL GLANDS: Slight thickening of the posterior limb of the left adrenal gland similar to prior exam. Right adrenal gland is unremarkable. KIDNEYS AND URETERS: The kidneys are normal in size, shape, and attenuation. No hydronephrosis, hydroureter, or calculi seen. The collecting systems are normal. The ureters are normal. No perinephric stranding. BLADDER: Unremarkable. GASTROINTESTINAL TRACT: Mild diverticulosis of the colon. No evidence of diverticulitis. The small and large bowel are otherwise unremarkable. The appendix is not seen. ABDOMINAL WALL: No significant hernia is appreciated. LYMPH NODES: Normal. VASCULAR: Unremarkable. PELVIC VISCERA: Uterus not seen and may been removed. No pelvic mass. OSSEUS STRUCTURES: Unremarkable. IMPRESSION: Normal CT IVP. No cause of hematuria seen. Mild diverticulosis of the colon. Tiny gallstone in the gallbladder. Stable thickening of the posterior limb of the left adrenal gland from prior exams. Assessment & Plan Assessment & Plan (1) Microscopic hematuria: Comment: (normal cystoscopy 01/2024) Code(s): R31.29 - Other microscopic hematuria Category: Medical (2) Dysuria: Code(s): R30.0 - Dysuria Category: Medical (3) Urinary frequency: Code(s): R35.0 - Frequency of micturition Category: Medical Plan Discussion Notes I discussed with the patient the possibility of interstitial cystitis as an underlying cause of her persistent urinary symptoms, given the absence of bacterial infection. I recommended a trial of medications specifically targeting bladder spasms and dysuria. We also reviewed the need for imaging of the renal tract through ultrasound to preclude any related structural abnormalities. Consent was obtained from the patient concerning the proposed treatment plan and the rationale behind the medication choices. I emphasized the importance of follow-up after the renal ultrasound to reassess her condition, noting that potential alternatives and modifications to the treatment plan would be considered based on the outcomes. Plan I will address the patient's chronic urinary symptoms with a targeted medication regimen including hyoscyamine and hydroxyzine, supplemented with Pyridium for symptomatic relief. A renal ultrasound is indicated to assess any potential upper tract issues. Follow-up evaluation will be essential post-imaging to review the impact of these interventions on her symptoms. Orders: Orders US renal BI Today R30.0 - Dysuria, R31.29 - Other microscopic hematuria, R35.0 - Frequency of micturition Medications: New phenazopyridine (Pyridium) 200 mg PO BID PRN 20 tabs 1RF pain with urination hyoscyamine sulfate (Levsin/SL) 0.125 mg PO BID 60 tabs 1RF bladder spasms hydroxyzine pamoate (Vistaril) 25 mg PO BEDTIME 30 caps 1RF bladder spasms Discontinued nitrofurantoin monohyd/m-cryst 100 mg must administer with a meal/food Discontinued Reason: Patient Completed Course 100 mg PO Q12H 5 days 10 caps 0RF Patient Instructions: Patient Instructions - Take prescribed hyoscyamine sublingual 0.125 mg twice daily for bladder spasms. - Take hydroxyzine (Vistrel) 25 mg at bedtime as discussed. - Use Pyridium as needed for urinary discomfort. - Attend scheduled renal ultrasound appointment. - Schedule a follow-up visit after the renal ultrasound for review of results and treatment efficacy. The patient had an opportunity to ask questions regarding treatment plan. The patient expressed understanding and agreement with the above treatment plan. The patient is aware they should contact our office by phone for worsening of their current condition or the appearance of new symptoms. Compliance is encouraged with any medications and followup testing that is ordered. It is a privilege to be allowed the opportunity to participate in the urologic care of your patient. If you have any questions or concerns regarding treatment for the above conditions please do not hesitate to contact me. The office telephone contact is [phone]. This note is constructed in part using voice recognition software. While every effort has been made to ensure accuracy publishing agent errors may have been included. Yours sincerely, Carlos Proctor MD Scribe Plan - Not visible on output: Patient was informed and verbally consented to the use of an ambient scribe for clinic note documentation during this visit. Coding Level of Care Code Tele Est Pt Level 4 (13669) Diagnoses Microscopic hematuria R31.29 Dysuria R30.0 Urinary frequency R35.0
--- OUTSIDE RECORDS SUMMARY | 2024-12-17 07:38 | XMS_ITS | Continuity of Care Document ---
Author Organization [employer] [facility] Address [address] [facility] [address] [place] [address] Phone Care Team Providers Care Research Manufacturing Operator Name Role Phone Ruth MANCILLA, Zach Unavailable [...] mouth two times per day - Active Crestor 10 mg Tab Take one tablet by mouth daily - Active Percocet 5 mg-325 mg Tab [...] Diagnoses Date Provider Providers Copied on Encounter Adore Me, [address] [address], [place], [id number], [phone] [facility]ore [facility] No Information 0-201 1 Ruth Serrano. [address] [address], [place], [address], . [phone] [facility], [address] [place], [id number], tel:[phone] Adore [facility] No Information 9200 8 Remedios Ely. [address] [address], [place], [address], [place]. [phone] Adore [facility], [address] [place], [id number], [phone] Adore [facility] No Information 0200 8 Remedios Ely. [address] [place], [address], [place]. tel:[phone] Level Four Est Patient Adore [facility], [address] [place], [id number], tel:[phone] Adore [facility] 4-6 weeks (chief complaint) No Information 1-200 8 Remedios Ely. [address] [address], [place], [address], . tel:[phone] Referring Provider: Solis Solis, [address] [address], [place], [address]. tel:[phone] Level Three Est Patient Adore Me, [address] [facility] 109, [place], [id number], [place] tel:[phone] [facility]ore [facility] urinary freq/danita flank pain/hematu brennan/burning (chief complaint) No Information Jan-0 7-200 8 Remedios Ely. [address] [facility] 109, [place], [address], [place]. tel:[phone] Referring Provider: Solis Solis, [address] [facility] 109, [place], [address]. tel:[phone] Adore Me, [address] [facility] 109, [place], [id number], [place] tel:[phone] Adore Me No Information Dec-1 4-200 8 Remedios Ely. 220 [facility] 109, [place], [address], [place]. tel:[phone] Level Three Est Patient Adore Me, [address] [facility] 109, [place], [id number], [place] tel:[phone] [facility] cough/sinus stacey/danita ear disc (chief complaint) No Information Dec- 0-200 8 Remedios Ely. [address] [facility] 109, [place], [address], [place]. tel:[phone] Referring Provider: Solis Solis, [address] [place] [address], [place], [address]. tel:[phone] Level Four Est Patient Adore Me, [address] [facility] 109, [place], [id number], [place] tel:[phone] Adore Me 2-3 week (chief complaint) No Information 8 Remedios Ely. [address] [facility] 109, [place], [address], [place]. tel:[phone] Referring Provider: Solis Solis, [address] [place] [address], [place], [address]. tel:[phone] Level Four Est Patient Adore Me, [address] [facility] 109, [place], [id number], [place] tel:[phone] Adore Me depression (chief complaint) No Information 8 Remedios Ely. [address] [facility], [address], [place], [address], [place]. tel:[phone] Referring Provider: Solis Solis, [address] [facility] [address], [place], [address]. tel:[phone] Level Four Est Patient Adore Me, [address] [facility], [place], [id number], [place] tel:[phone] Adore Me No Information 7 Remedios Ely. [address] [facility], [facility] 109, [place], [address], [place]. tel:[phone] Referring Provider: Solis Solis, [address] [facility] 109, [place], [address]. tel:[phone] Level Three Est Patient Adore Me, [address] [facility] 109, [place], [id number], [place] tel:[phone] [facility] cold symptoms (chief complaint) TOBACCO USE DISORDERASTH MA NOSEPILEPSYA CUTE BRONCHITISSE MAR OTITIS MEDIATOBACCO USE DISORDER 7 Devon Palafox. [address] [facility], [address], [place], [address], [place]. tel:[phone] Referring Provider: Javy Mckeon, [address] [facility] [address], [place], [address]. tel:[phone] Level Four Est Patient Adore Me, [address] [facility] 109, [place], [id number], [place] tel:[phone] Adore Me No Information 7 Remedios Ely. [address] [facility], [facility] 109, [place], [address], [place]. tel:[phone] Referring Provider: Solis Solis, [address] [facility] [address], [place], [address]. tel:[phone] Level Two Est Patient Adore Me, [address] [facility] 109, [place], [id number], [place] [phone] Adore Me No Information 7 Lorena Garcia. 220 [facility] 109, [place], [address], [place]. tel:[phone] Referring Provider: Suresh DANIELS, [address] [place] [address] [address], [place], [address]. tel:[phone] Level Three Est Patient Adore [facility], [address] [facility] 109, [place], [id number], [place] tel:[phone] [facility]ore [facility] DMII WO CMP NT ST UNCNTRHYPERL IPIDEMIA NEC/NOSDEPRE SSIVE DISORDER NEC 7 Lorena Garcia. [address] [facility] 109, [place], [address], [place]. tel:[phone] Referring Provider: Suresh DANIELS, 220 [facility] [address], [place], [address]. tel:[phone] Level Three Est Patient Adore Me, [address] [address], [place], [id number], [place] [phone] Adore Me No Information 7 MD Osbaldo Boucher . [address] [facility] 109, [place], [address], [place]. tel:[phone] Level Three Est Patient Adore Me, [address] [facility] 109, [place], [id number], [place] tel:[phone] [facility]ore [facility] ASTHMA NOSEPILEPSYH YPERLIPIDEMI A NEC/NOS 7 Remedios Ely. [address] [facility] 109, [place], [address], [place]. tel:[phone] Referring Provider: Solis Solis, [address] [place] [address], [place], [address]. tel:[phone] Adore Me, [address] [address], [place], [id number], [place] tel:[phone] Adore Me No Information 7 Remedios Ely. [address] [address], [place], [address], [place]. tel:[phone] Referring Provider: Solis Solis, [address] [address], [place], [address]. tel:[phone] Level Three Est Patient [employer], [address] [address], [place], [id number], [place] tel:[phone] Adore Me No Information 7 Remedios Ely. [address] [address], [place], [address], [place]. [phone] Referring Provider: Solis Solis, [address] [place] [address], [place], [address]. tel:[phone] Level Four Est Patient Adore Me, [address] [address], [place], [id number], [place] tel:[phone] Adore Me No Information 7 Remedios Ely. [address] [address], [place], [address], [place]. [phone] Level Three Est Patient [employer], [address] [address], [place], [id number], [place] tel:[phone] Adore Me No Information 7 Ruth Serrano. [address] [facility] 109, [place], [address], [place]. tel:[phone] Referring Provider: Zach Lam, [address] [place] [address], [place], [address]. tel:[phone] Level Two Est Patient Adore Me, [address] [address], [place], [id number], [place] tel:[phone] Adore Me No Information 7 Ken Torres. [address] [place], [address], [place]. tel:[phone] Adore Me, [address] [address], [place], [id number], [place] tel:[phone] Adore Me No Information Ascencion-0 9-200 7 Remedios Ely. [address] [facility] 109, [place], [address], [place]. [phone] Referring Provider: Solis Solis, [address] [facility] 109, [place], [address]. [phone] Adore Me, [address] [place] [address], [place], [id number], [place] tel:[phone] Adore Me No Information Dec-2 8-200 6 Remedios Ely. [address] [address], [place], [address], [place]. [phone] Referring Provider: Solis Solis, [address] [place] [address], [place], [address]. [phone] Level Three Est Patient Adore Me, [address] [place] [address], [place], [id number], [place] tel:[phone] Adore Me No Information Aug-2 7-200 6 Remedios Ely. [address] [facility] 109, [place], [address], [place]. tel:[phone] Adore Me, [address] [place] [address], [place], [id number], [place] tel:[phone] Adore Me No Information Nov-2 0-200 6 Remedios Ely. [address] [facility] 109, [place], [address], [place]. [phone] Referring Provider: Solis Solis, [address] [place] [address], [place], [address]. tel:[phone] Level Four Est Patient [employer], [address] [place] [address] 109, [place], [id number], [place] tel:[phone] Adore Me No Information Oct-0 4-200 6 Remedios Ely. [address] [facility] 109, [place], [address], [place]. [phone] Referring Provider: Solis Solis, [address] [facility] 109, [place], [address]. [phone] Adore Me, [address] [facility] 109, [place], [id number], [place] tel:[phone] Adore Me No Information Oct-0 2-200 6 Remedios Ely. [address] [facility], [facility] 109, [place], [address], [place]. tel:[phone] Adore Me, [address] [address], [place], [id number], [place] tel:[phone] Adore Me No Information Sep-2 200 6 Remedios Ely. [address] [facility] 109, [place], [address], [place]. [phone] Office consultation , New/Est moderate-hig h Sev Adore Me, [address] [address], [place], [id number], [place] tel:[phone] [facility] No Information Jun-1 2200 6 Nina Yeung. [address] [facility], [place], [address], [place]. tel:[phone] Referring Provider: Donte JACKSON, [address] [facility], [place], [address]. [phone] Adore Me, [address] [address], [place], [id number], [place] tel:[phone] Adore Me No Information Sep-0 5-200 6 Deovn Palafox. [address] [facility] 109, [place], [address], [place]. [phone] Level Three Est Patient Adore Me, [address] [address], [place], [id number], [place] tel:[phone] Adore Me No Information Aug-2 200 6 Remedios Ely. [address] [facility] 109, [place], [address], [place]. [phone] Referring Provider: Solis Solis, [address] [facility] 109, [place], [address]. tel:[phone] [employer], [address] [facility] 109, [place], [id number], [place] tel:[phone] Adore Me No Information 6 Remedios Ely. [address] [facility] 109, [place], [address], [place]. tel:[phone] Referring Provider: Solis Solis, [address] [facility] 109, [place], [address]. tel:[phone] [employer], [address] [facility] 109, [place], [id number], [place] tel:[phone] Adore Me No Information 6 MD Osbaldo Boucher . [address] [facility] 109, [place], [address], [place]. tel:[phone] [employer], [address] [address], [place], [id number], [place] tel: [phone] Adore Me No Information 6 MD Osbaldo Boucher . [address] [facility] 109, [place], [address], [place]. [phone] Level Three Est Patient [employer], [address] [address], [place], [id number], [place] tel: [phone] Adore Me No Information 6 Remedios Ely. [address] [facility] 109, [place], [address], [place]. tel: [phone] [employer], [address] [facility] 109, [place], [id number], [place] tel:[phone] [employer] No Information 6 Remedios Ely. [address] [facility] 109, [place], [address], [place]. [phone] Level Three Est Patient [employer], [address] [facility] 109, [place], [id number], [place] [phone] Adore Me No Information Apr-1 8-200 6 No Information Level Three Est Patient [facility], [address] [facility] 109, [place], [id number], [place] [phone] Adore Me No Information Ludwin-0 7-200 6 Remedios Ely. [address] [facility] 109, [place], [address], [place]. tel:[phone] Referring Provider: Solis Solis, [address] [facility] 109, [place], [address]. tel:[phone] Adore Me, [address] [address], [place], [id number], [place] [phone] Adore Me No Information Ludwin-0 6-200 6 Remedios Ely. [address] [facility] 109, [place], [address], [place]. tel:[phone] Referring Provider: Solis Solis, [address] [facility] 109, [place], [address]. tel:[phone] Adore Me, [address] [facility] 109, [place], [id number], [place] [phone] Adore Me No Information February-1 5-200 6 Remedios Ely. [address] [facility] 109, [place], [address], [place]. tel:[phone] Referring Provider: Solis Solis, [address] [facility] 109, [place], [address]. tel:[phone] Level Three Est Patient [employer], [address] [facility] 109, [place], [id number], [place] [phone] Adore Me No Information February-0 9-200 6 Remedios Ely. [address] [facility] 109, [place], [address], [place]. tel:[phone] Adore Me, [address] [facility] 109, [place], [id number], [place] tel:[phone] [facility] No Information Dec-0 7200 6 Devon Palafox. [address] [facility], [address], [place], [address], [place]. tel:[phone] Family History Family Member Type Diagnosis Age At Onset Mother Problem (finding) Depression Payers Payer name Insurance type Covered republican ID Authoriza tishari(s) [facility] [id number] Social History Type Description Quantity Date Captured [...]
--- OUTSIDE RECORDS SUMMARY | 2024-12-17 07:38 | XMS_ITS | Clinical Summary ---
Author Organization [facility] Address [address] [place] [address] Care Team Providers Care Industrial Automation Engineer Name Role Phone Community, Pcp Primary Care Provider Unavailabl e Allergies Active Allergy Reactions Severity Noted Date Comments Avelox Hives/Urticaria 11/17/2017 Penicillins Hives/Urticaria 11/17/2017 Sulfa Drugs Hives/Urticaria 11/17/2017 Medications Medication Sig Dispensed Refills Start Date End Date Status levetiracetam (KEPPRA) 500 MG tablet Take 500 mg by mouth 3 times daily. 0 Active Cholecalciferol (VITAMIN D) 1000 UNITS Tab Take 1,000 Units by mouth daily. 0 Active aspirin 325 MG tablet Take 325 mg by mouth daily. 0 Active Multiple Vitamin (MULTI VITAMIN) Tab Take by mouth daily. Unknown dosage 0 Active Blood Glucose Monitoring Suppl ([employer] VERIO) W/DEVICE Kit by Does not apply route. 0 Active omeprazole (PRILOSEC) 20 MG capsule Take 20 mg by mouth daily. 0 Active vitamin B-12 (CYANOCOBALAMIN) 100 MCG tablet Take 50 mcg by mouth daily. 0 Active sertraline (ZOLOFT) 100 MG tablet Take 100 mg by mouth daily. 0 Active atorvastatin (LIPITOR) 40 MG tablet Take 40 mg by mouth daily. 0 Active metformin (GLUCOPHAGE) 1000 MG tablet Take 1,000 mg by mouth 2 times daily (with meals). 0 Active busPIRone (BUSPAR) 5 MG tablet Take 5 mg by mouth 3 times daily. 0 Active sitagliptan (JANUVIA) 100 MG tablet Take 100 mg by mouth daily. 0 Active carbamazepine (CARBATROL) 200 MG 12 hr capsule Take 200 mg by mouth 5 times daily. 0 Active Suvorexant 15 MG Tab Take 15 mg by mouth at bedtime. 0 Active Fexofenadine-Pseudoep hedrine (BREANNA-D 24 HOUR OR) Take by mouth. 0 Active oxycodone-acetaminoph en (PERCOCET) 5-325 MG per tablet Take 1-2 tablets by mouth every 6 hours as needed for Pain for up to 7 days. 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 11/17/2017 Social History Tobacco Use Types Packs/Day Years Used Date Smoking Tobacco: Every Day Cigarettes 1 Smokeless Tobacco: Never Tobacco Cessation:Ready to Q uit: No; Counseling Given: No Comments:Started at the age of 23 Alcohol Use Standard Drinks/Week Comments Yes 0 (1 standard drink = 0.6 oz pur e alcohol) social Sex Assigned at Date Recorded Not on file Last Filed Vital Signs Vital Sign Reading Time Taken Comments Blood Pressure 98/62 05/01/2018 9:54 AM EDT Pulse 72 05/01/2018 9:54 AM EDT Temperature 35.4 ??C (95.7 ??F) 05/01/2018 9:54 AM ED T Respiratory Rate 16 05/01/2018 9:54 AM EDT Oxygen Saturation - - Inhaled Oxygen Concentration - - Weight 67.1 kg (148 lb) 05/01/2018 9:54 AM EDT Height 162.6 cm (5' 4 ) 05/01/2018 9:54 AM EDT Body Mass Index 25.4 05/01/2018 9:54 AM EDT Plan of Treatment Health Maintenance Due Date Last Done Comments Covid-19 Vaccine (#1) 01/14/1972 DEPRESSION SCREEN 1983 DIABETES/HEART DISEASE: ANNUAL CHOLESTEROL (LDL) 07/15 DIABETES: ANNUAL EYE EXAM 1989 DIABETES: ANNUAL FOOT EXAM 1989 DIABETES: ANNUAL URINE PROTEIN TEST (MICROALBUMIN) 12/1988 DIABETES: BLOOD SUGAR CONTROL TEST (HGBA1C) 1989 DTAP/TDAP/TD (1 - Tdap) 1990 PNEUMOCOCCAL VACCINE FOR HIGH RISK PATIENTS (#1) 07/15 CERVICAL CANCER SCREENING 1992 BASELINE HEALTH EXAM 40-64 2011 MAMMOGRAM 2011 TOBACCO CHECK/ADVISE 02/24/2020 02/23/2018 COLON CANCER SCREENING 2021 SHINGLES VACCINE (1 of 2) 2021 INFLUENZA (#1) 2024 BMI CHECK/ADVISE 10/13/2024 12/26/2017 Care Teams Industrial Automation Engineer Relationship Specialty Start Date End Date Community, Pcp PCP - General Internal Medicine 11/11/17
--- OUTSIDE RECORDS SUMMARY | 2024-12-17 07:38 | XMS_ITS | Encounter Summary ---
Author Organization [facility] Address [address] [place] [address] Care Team Providers Care School Bus Driver Name Role Phone Community, Pcp Primary Care Provider Unavailabl e Encounter Details Date Type Department Care Team Description 01/05/2018 Orders Only Plastic Surgery [place] [address] [place] [address] Ed Davidson DO Social History Tobacco Use Types Packs/Day Years Used Date Smoking Tobacco: Every Day Cigarettes 1 Smokeless Tobacco: Never Comments:Started at the age of 23 Alcohol Use Standard Drinks/Week Comments Yes 0 (1 standard drink = 0.6 oz pur e alcohol) social Sex Assigned at Date Recorded Not on file documented as of this encounter Plan of Treatment Not on file documented as of this encounter Visit Diagnoses Not on filedocumented in this encounter Care Teams School Bus Driver Relationship Specialty Start Date End Date Community, Pcp PCP - General Internal Medicine 11/11/17 documented as of this encounter
--- OUTSIDE RECORDS SUMMARY | 2024-12-17 07:38 | XMS_ITS | Encounter Summary ---
Author Organization [facility] Address [address] [place] [address] Care Team Providers Care Primary Care Physician Name Role Phone [facility], Pcp Primary Care Provider Unavailabl e Encounter Details Date Type Department Care Team Description 01/03/2018 Night Triage Doc Medical Records [address] [place] [address] Abstract, Provider Social History Tobacco Use Types Packs/Day Years [...] on filedocumented in this encounter Care Teams Primary Care Physician Relationship Specialty Start Date End Date Community, Pcp PCP - General Internal Medicine 11/11/17 documented as of this encounter
--- OUTSIDE RECORDS SUMMARY | 2024-12-17 07:38 | XMS_ITS | Clinical Summary ---
Author Organization [facility] Address [address] [facility] [place] [address] Care Team Providers Care Sustainability Project Manager Name Role Phone Zac De Leon NP [...] complication, without long-term current use of insulin ([facility] and [facility]) 11/17/2017 Encounters Date Type Department Care Team Description 11/08/2024 7:45 AM EST E-Visit [facility] [address] [place] [address] Shana Hanna NP Disorder of teeth and [...] Series and Booster Status ([facility]) (#1) 1976 Diabetes: Retinopathy Screening 1981 Depression: Screening Annual ly using PHQ-2/9 in Adults 18 yrs or above (or HM Modifier)([facility]) 1989 Diabetes Care Foot Exam Scre ening: Yearly in adults with Diabetes (or HM Modifiers)([facility]) 1989 Diabetes Care: Kidney Health Evaluation Annually in adults aged 18 to 85 yrs (or HM Modifier)([facility]) 1989 Hepatitis C Virus Infection in Adolescents and Adults: Screening (or Modifier) ([facility]) 1989 DARIO Screening: Once using ST OP-BANG Questionnaire for Adults with Conditions or high BMI([facility]) 1989 SDOH Screening Reminder: Kamala marie for all adults ([facility]) 1989 DTaP/Tdap/Td Vaccines ([facility]) (1 - Tdap) 1990 Pneumococcal Vaccination Scr eening: Pts 0-19 & 19-64 yrs of age ([facility]) (1 of 2 - PCV) 1990 Zoster/Shingles Vaccine Seri es Screening: Adults aged 18+ yrs (or HM Modifiers)([facility]) (1 of 2) 1990 Colorectal Cancer Screening 45 -75 Yrs (or HM Modifier) 2016 Colorectal Cancer: FLEXIBLE SIGMOIDOSCOPY Screening every 5 yrs 2016 Colorectal Cancer: Fecal Imm unochemical Test (FIT) Annually [facility] 2016 Colorectal Cancer: High-sens itivity gFOBT Screening Annually [facility] 2016 Colorectal Cancer: Stool Col oguard Screening every 3 yrs 2016 Colorectal Cancer:CT Colonog priyank Screening every 5 yrs 2016 Lipid Screening: Every 5 yrs for Women aged 45+ (or HM Modifier) ([facility]) 2017 Breast Cancer: Screening Kamala marie age 50-74 yrs (or HM Modifier)([facility]) 2021 Flu Vaccination: Yearly for ages 18mos through 64 years (or Modifier)([facility]) 05/13/2024 Diabetes Care: Statin Therap y for adults with DM ages 21+ yrs old ([facility]) 08/02/2025 08/02/2024 Tobacco Smoking Cessation: i n Adults excluding Women: Behavioral and Pharmacotherapy Interventions ([facility]) 11/08/2025 11/08/2024 Medical Devices Not on file Insurance MEDICARE Care Teams Sustainability Project Manager Relationship Specialty Start Date End Date Zac De Leon NP [address] [place] [address] PCP - General Family Medicine 11/08/24
--- OUTSIDE RECORDS SUMMARY | 2024-12-17 07:38 | XMS_ITS | Encounter Summary ---
Author Organization [facility] Address [address] [place] [address] Care Team Providers Care Audiology Technician Name Role [facility]cp Primary Care Provider Unavailabl e Encounter Details Date Type Department Care Team Description 11/06/2017 Marketing Automation Specialist Report Medical Records [address] [place] [id number] Heaven Solorio PA-C Social History Tobacco Use Types Packs/Day Years Used Date Smoking Tobacco: Never Assessed Sex Assigned at Date Recorded Not on file documented as of this encounter Plan of Treatment Not on file documented as of this encounter Visit Diagnoses Not on filedocumented in this encounter Care Teams Audiology Technician Relationship Specialty Start Date End Date Community, Pcp PCP - General Internal Medicine 11/11/17 documented as of this encounter
== END 2024-12-17 08:20 | disposition home or self-care (01) ==
LOC: HO.HUSH 07:36
PROVIDERS: PCP Nurse Practitioner Family; Visit Provider Urology
DX: R31.29 Other microscopic hematuria (principal); R30.0 Dysuria; R35.0 Frequency of micturition
CPT/HCPCS: 99214

== ENCOUNTER → 2024-12-17 07:36 | Outpatient (BNVA) | payer MEDICARE, SELFPAY | PROVIDERS: PCP Nurse Practitioner Family; Visit Provider Urology ==

== ENCOUNTER 2024-12-22 09:32 | Outpatient (REF) | payer MEDICARE, SELFPAY ==
--- OUTSIDE RECORDS SUMMARY | 2024-12-22 10:26 | XMS_ITS | Continuity of Care Document ---
Author Organization [facility] Address [address] [facility] [address] [place] [address] Phone Care Team Providers Care Crotch Piece Baster Name Role Phone Ruth MANCILLA, Zach Unavailable [...] one tablet by mouth daily - Active azithromycin 250 mg Tab Take 2 pills first day, then one pill daily thereafter - Active Percocet 5 mg-325 mg Tab Take one tablet by mouth every four hours as needed - Active Vesicare 5 mg Tab Take [...] Diagnoses Date Provider Providers Copied on Encounter TDI Bassline, [address] [address], [place], [id number], [phone] [facility] No Information 0-201 1 Ruth Serrano. [address] [address], [place], [address], . [phone] [facility]DI [facility], [address] [place], [id number], tel:[phone] [facility] No Information 9200 8 Remedios Ely. [address] [address], [place], [address], [place]. [phone] TDI [facility]line, [address] [place], [id number], [phone] [facility] No Information 0200 8 Remedios Ely. [address] [place], [address], [place]. tel:[phone] Level Four Est Patient TDI Bassline, [address] [place], [id number], tel:[phone] [facility] 4-6 weeks (chief complaint) No Information 1-200 8 Remedios Ely. [address] [address], [place], [address], . tel:[phone] Referring Provider: Solis Solis, [address] [address], [place], [address]. tel:[phone] Level Three Est Patient TDI Bassline, [address] [facility] 109, [place], [id number], [place] tel:[phone] [facility] urinary freq/danita flank pain/hematu brennan/burning (chief complaint) No Information Jan-0 7-200 8 Remedios Ely. 220 [facility] 109, [place], [address], [place]. tel:[phone] Referring Provider: Solis Solis, [address] [facility] 109, [place], [address]. tel:[phone] TDI Bassline, [address] [facility] 109, [place], [id number], [place] tel:[phone] [facility] No Information Dec-1 4-200 8 Remedios Ely. [address] [facility] 109, [place], [address], [place]. tel:[phone] Level Three Est Patient TDI Bassline, [address] [facility] 109, [place], [id number], [place] tel:[phone] [facility] cough/sinus stacey/danita ear disc (chief complaint) No Information Dec- 0-200 8 Remedios Ely. 220 [facility] 109, [place], [address], [place]. tel:[phone] Referring Provider: Solis Solis, [address] [place] [address], [place], [address]. tel:[phone] Level Four Est Patient TDI Bassline, [address] [facility] 109, [place], [id number], [place] tel:[phone] [facility] 2-3 week (chief complaint) No Information 8 Remedios Ely. [address] [facility] 109, [place], [address], [place]. tel:[phone] Referring Provider: Solis Solis, [address] [place] [address], [place], [address]. tel:[phone] Level Four Est Patient TDI Bassline, [address] [facility] 109, [place], [id number], [place] tel:[phone] TDI [facility] depression (chief complaint) No Information 8 Remedios Ely. [address] [facility], [address], [place], [address], [place]. tel:[phone] Referring Provider: Solis Solis, [address] [facility] [address], [place], [address]. tel:[phone] Level Four Est Patient TDI Bassline, [address] [facility], [place], [id number], [place] tel:[phone] TDI [facility] No Information 7 Remedios Ely. [address] [facility], [facility] 109, [place], [address], [place]. tel:[phone] Referring Provider: Solis Solis, [address] [facility] 109, [place], [address]. tel:[phone] Level Three Est Patient TDI Bassline, [address] [facility] 109, [place], [id number], [place] tel:[phone] [facility] cold symptoms (chief complaint) TOBACCO USE DISORDERASTH MA NOSEPILEPSYA CUTE BRONCHITISSE MAR OTITIS MEDIATOBACCO USE DISORDER 7 Devon Palafox. [address] [facility], [address], [place], [address], [place]. tel:[phone] Referring Provider: Javy Mckeon, [address] [facility] [address], [place], [address]. tel:[phone] Level Four Est Patient TDI Bassline, [address] [facility] 109, [place], [id number], [place] tel:[phone] [facility] No Information 7 Remedios Ely. [address] [facility], [facility] 109, [place], [address], [place]. tel:[phone] Referring Provider: Solis Solis, [address] [facility] [address], [place], [address]. tel:[phone] Level Two Est Patient TDI Bassline, [address] [facility] 109, [place], [id number], [place] [phone] [facility] No Information 7 Lorena Garcia. 220 [facility] 109, [place], [address], [place]. tel:[phone] Referring Provider: Suresh DANIELS, [address] [place] [address] [address], [place], [address]. tel:[phone] Level Three Est Patient TDI Bassline, [address] [facility] 109, [place], [id number], [place] tel:[phone] [facility] DMII WO CMP NT ST UNCNTRHYPERL IPIDEMIA NEC/NOSDEPRE SSIVE DISORDER NEC 7 Lorena Garcia. 220 [facility] 109, [place], [address], [place]. tel:[phone] Referring Provider: Suresh DANIELS, 220 [facility] [address], [place], [address]. tel:[phone] Level Three Est Patient TDI Bassline, [address] [address], [place], [id number], [place] [phone] [facility] No Information 7 MD Osbaldo Boucher . [address] [facility] 109, [place], [address], [place]. tel:[phone] Level Three Est Patient TDI Bassline, [address] [facility] 109, [place], [id number], [place] tel:[phone] [facility] ASTHMA NOSEPILEPSYH YPERLIPIDEMI A NEC/NOS 7 Remedios Ely. 220 [facility] 109, [place], [address], [place]. tel:[phone] Referring Provider: Solis Solis, [address] [place] [address], [place], [address]. tel:[phone] TDI Bassline, [address] [address], [place], [id number], [place] tel:[phone] [facility]DI [facility] No Information 7 Remedios Ely. [address] [address], [place], [address], [place]. tel:[phone] Referring Provider: Solis Solis, [address] [address], [place], [address]. tel:[phone] Level Three Est Patient [employer], [address] [address], [place], [id number], [place] tel:[phone] TDI [facility] No Information 7 Remedios Ely. [address] [address], [place], [address], [place]. [phone] Referring Provider: Solis Solis, [address] [place] [address], [place], [address]. tel:[phone] Level Four Est Patient TDI Bassline, [address] [address], [place], [id number], [place] tel:[phone] [facility] No Information 7 Remedios Ely. [address] [address], [place], [address], [place]. [phone] Level Three Est Patient [employer], [address] [address], [place], [id number], [place] tel:[phone] [facility] No Information 7 Ruth Serrano. 220 [facility] 109, [place], [address], [place]. tel:[phone] Referring Provider: Zach Lam, [address] [place] [address], [place], [address]. tel:[phone] Level Two Est Patient TDI Bassline, [address] [address], [place], [id number], [place] tel:[phone] [facility] No Information 7 Ken Torres. 220 [facility] [place], [address], [place]. tel:[phone] TDI Bassline, [address] [address], [place], [id number], [place] tel:[phone] [facility] No Information Ascencion-0 9-200 7 Remedios Ely. [address] [facility] 109, [place], [address], [place]. [phone] Referring Provider: Solis Solis, [address] [facility] 109, [place], [address]. [phone] TDI Bassline, [address] [place] [address], [place], [id number], [place] tel:[phone] [facility] No Information Dec-2 8-200 6 Remedios Ely. [address] [address], [place], [address], [place]. [phone] Referring Provider: Solis Solis, [address] [place] [address], [place], [address]. [phone] Level Three Est Patient TDI Bassline, [address] [place] [address], [place], [id number], [place] tel:[phone] [facility] No Information Aug-2 7-200 6 Remedios Ely. [address] [facility] 109, [place], [address], [place]. tel:[phone] TDI Bassline, [address] [place] [address], [place], [id number], [place] tel:[phone] [facility] No Information Nov-2 0-200 6 Remedios Ely. [address] [facility] 109, [place], [address], [place]. [phone] Referring Provider: Solis Solis, [address] [place] [address], [place], [address]. tel:[phone] Level Four Est Patient [employer], [address] [place] [address] 109, [place], [id number], [place] tel:[phone] [facility] No Information Oct-0 4-200 6 Remedios Ely. [address] [facility] 109, [place], [address], [place]. [phone] Referring Provider: Solis Solis, [address] [facility] 109, [place], [address]. [phone] TDI Bassline, [address] [facility] 109, [place], [id number], [place] tel:[phone] [facility] No Information Oct-0 2-200 6 Remedios Ely. [address] [facility], [facility] 109, [place], [address], [place]. tel:[phone] TDI Bassline, [address] [address], [place], [id number], [place] tel:[phone] [facility] No Information Sep-2 200 6 Remedios Ely. [address] [facility] 109, [place], [address], [place]. [phone] Office consultation , New/Est moderate-hig h Sev TDI Bassline, [address] [address], [place], [id number], [place] tel:[phone] [facility] No Information Jun-1 2200 6 Nina Yeung. [address] [facility], [place], [address], [place]. tel:[phone] Referring Provider: Donte JACKSON, [address] [facility], [place], [address]. [phone] TDI Bassline, [address] [address], [place], [id number], [place] tel:[phone] [facility] No Information Sep-0 5-200 6 Devon Palafox. [address] [facility] 109, [place], [address], [place]. [phone] Level Three Est Patient TDI Bassline, [address] [address], [place], [id number], [place] tel:[phone] [facility] No Information Aug-2 200 6 Remedios Ely. [address] [facility] 109, [place], [address], [place]. [phone] Referring Provider: Solis Solis, [address] [facility] 109, [place], [address]. tel:[phone] [employer], [address] [facility] 109, [place], [id number], [place] tel:[phone] [facility] No Information 6 Remedios Ely. [address] [facility] 109, [place], [address], [place]. tel:[phone] Referring Provider: Solis Solis, [address] [facility] 109, [place], [address]. tel:[phone] [employer], [address] [facility] 109, [place], [id number], [place] tel:[phone] [facility] No Information 6 MD Osbaldo Boucher . [address] [facility] 109, [place], [address], [place]. tel:[phone] [employer], [address] [address], [place], [id number], [place] tel: [phone] [facility] No Information 6 MD Osbaldo Boucher . [address] [facility] 109, [place], [address], [place]. tel:[phone] Level Three Est Patient [employer], [address] [address], [place], [id number], [place] tel: [phone] [facility] No Information 6 Remedios Ely. [address] [facility] 109, [place], [address], [place]. tel: [phone] [employer], [address] [facility] 109, [place], [id number], [place] tel:[phone] [employer] No Information 6 Remedios Ely. [address] [facility] 109, [place], [address], [place]. tel:[phone] Level Three Est Patient [employer], [address] [facility] 109, [place], [id number], [place] [phone] [facility] No Information Apr-1 8-200 6 No Information Level Three Est Patient [employer], [address] [facility] 109, [place], [id number], [place] [phone] [facility] No Information Ludwin-0 7-200 6 Remedios Ely. [address] [facility] 109, [place], [address], [place]. tel:[phone] Referring Provider: Solis Solis, [address] [facility] 109, [place], [address]. tel:[phone] TDI Bassline, [address] [address], [place], [id number], [place] [phone] [facility] No Information Ludwin-0 6-200 6 Remedios Ely. [address] [facility] 109, [place], [address], [place]. tel:[phone] Referring Provider: Solis Solis, [address] [facility] 109, [place], [address]. tel:[phone] TDI Bassline, [address] [facility] 109, [place], [id number], [place] [phone] [facility] No Information February-1 5-200 6 Remedios Ely. [address] [facility] 109, [place], [address], [place]. tel:[phone] Referring Provider: Solis Solis, [address] [facility] 109, [place], [address]. tel:[phone] Level Three Est Patient [employer], [address] [facility] 109, [place], [id number], [place] [phone] [facility] No Information February-0 9-200 6 Remedios Ely. [address] [facility] 109, [place], [address], [place]. tel:[phone] TDI Bassline, [address] [facility] 109, [place], [id number], [place] tel:[phone] [facility] No Information Dec-0 7200 6 Devon Palafox. [address] [facility], [address], [place], [address], [place]. tel:[phone] Family History Family Member Type Diagnosis Age At Onset Mother Problem (finding) Depression Payers Payer name Insurance type Covered constitution party ID Authoriza tishari(s) [facility] [id number] Social History Type Description Quantity Date Captured [...]
--- OUTSIDE RECORDS SUMMARY | 2024-12-22 10:26 | XMS_ITS | Clinical Summary ---
Author Organization [facility] [employer] Address [address] [email or web address] [address] Care Team Providers Care Junior Engineer Name Role Phone Zac De Leon NP Primary Care Provider + Allergies Active Allergy Reactions Criticality Noted Date Comments Moxifloxacin Hives 08/07/2024 Sulfa (Sulfonamide Antibiotics) 07/14 Medications Tresiba FlexTouch U-100 100 unit/mL (3 mL) inpn INJECT 14 UNITS SUBCUTANEOUSLY AT BEDTIME 4 Active metFORMIN (GLUCOPHAGE) 1000 MG tablet TAKE 1 TABLET BY MOUTH TWICE DAILY Active Myrbetriq 50 mg TAKE 1 TABLET BY MOUTH DAILY 4 Active sertraline (ZOLOFT) 100 MG tablet Take 1 tablet (100 mg total) by mouth Active Belsomra 15 mg tab TAKE 1 TABLET BY MOUTH AT BEDTIME Active atorvastatin (LIPITOR) 40 MG tablet TAKE 1 TABLET BY MOUTH AT BEDTIME Active aripiprazole (ABILIFY) 10 MG tablet TAKE 1 TABLET BY MOUTH DAILY 4 Active albuterol (PROVENTIL) 2.5 mg /3 mL (0.083 %) nebulizer solution Take 3 mL (2.5 mg total) by nebulization every 6 (six) hours as needed for wheezing Breathe as calmly, deeply and evenly as possible through mouth until no more mist is formed in the nebulizer chamber (about 5 to 15 minutes).. 75 mL 4 025 Active Active Problems Problem Noted Date Diagnosed Date Basal cell carcinoma of chest 02/23/2018 Basal cell carcinoma of skin of lip 11/17/2017 Current smoker 11/17/2017 Type 2 diabetes mellitus wit hout complication, without long-term current use of insulin ([facility]HCC and [facility]) 11/17/2017 Encounters Date Type Department Care Team Description 11/08/2024 7:45 AM EST E-Visit [facility] [address] [place] [address] Shana Hanna NP Disorder of teeth and [...] 36.3 ??C (97.3 ??F) 08/07/2024 1:55 PM E DT Respiratory Rate 20 08/02/2024 2:13 PM EDT [...] Vaccine Screening: Initial Series and Booster Status ([facility]) (#1) 1976 Diabetes: Retinopathy Screening 1981 Depression: Screening Annual ly using PHQ-2/9 in Adults 18 yrs or above (or HM Modifier)([facility]) 1989 Diabetes Care Foot Exam Scre ening: Yearly in adults with Diabetes (or HM Modifiers)([facility]) 1989 Diabetes Care: Kidney Health Evaluation Annually in adults aged 18 to 85 yrs (or HM Modifier)([facility]) 1989 Hepatitis C Virus Infection in Adolescents and Adults: Screening (or Modifier) ([facility]) 1989 DARIO Screening: Once using ST OP-BANG Questionnaire for Adults with Conditions or high BMI([facility]) 1989 SDOH Screening Reminder: Kamala salazar for all adults ([facility]) 1989 DTaP/Tdap/Td Vaccines ([facility]) (1 - Tdap) 1990 Pneumococcal Vaccination Scr eening: Pts 0-19 & 19-64 yrs of age ([facility]) (1 of 2 - PCV) 1990 Zoster/Shingles Vaccine Seri es Screening: Adults aged 18+ yrs (or HM Modifiers)([facility]) (1 of 2) 1990 Colorectal Cancer Screening 45 -75 Yrs (or HM Modifier) 2016 Colorectal Cancer: FLEXIBLE SIGMOIDOSCOPY Screening every 5 yrs 2016 Colorectal Cancer: Fecal Imm unochemical Test (FIT) Annually [facility] 2016 Colorectal Cancer: High-sens itivity gFOBT Screening Annually [facility] 2016 Colorectal Cancer: Stool Col oguard Screening every 3 yrs 2016 Colorectal Cancer:CT Colonog priyank Screening every 5 yrs 2016 Lipid Screening: Every 5 yrs for Women aged 45+ (or HM Modifier) ([facility]) 2017 Breast Cancer: Screening Kamala salazar age 50-74 yrs (or HM Modifier)([facility]) 2021 Flu Vaccination: Yearly for ages 18mos through 64 years (or Modifier)([facility]) 05/13/2024 Diabetes Care: Statin Therap y for adults with DM ages 21+ yrs old ([facility]) 08/02/2025 08/02/2024 Tobacco Smoking Cessation: i n Adults excluding Women: Behavioral and Pharmacotherapy Interventions ([facility]) 11/08/2025 11/08/2024 Medical Devices Not on file Insurance MEDICARE Care Teams Junior Engineer Relationship Specialty Start Date End Date Zac De Leon NP [address] [place] [address] PCP - General Family Medicine 11/08/24
[2024-12-22 13:55] LABS: Anion Gap 12 (12-20); Carbon Dioxide 23 mmol/L (22-29); Chloride 108 mmol/L (96-108); Potassium 5.1 mmol/L (3.3-5.1); Sodium 138 mmol/L (135-145)
[2024-12-22 13:58] LABS: B Type Natriuretic Peptide 21 pg/mL (<100)
[2024-12-22 14:02] LABS: Estimated Average Glucose 183 mg/dL; Hemoglobin A1C 218.9192 umol/L; Total Hemoglobin (HGBA1C) 3434.4052 umol/L
[2024-12-22 14:14] LABS: Appearance Urine Clear; Color Urine Orange; Leukocyte Esterase Urine Negative (Negative); UMIC TRIGGER UACC YES; Urine Blood Trace (Negative); Urine Ketones Negative (Negative); Urine Protein 30 (1+) mg/dL (Neg-Trace)
[2024-12-22 14:20] LABS: Bacteria Urine None Seen (None Seen); Hyaline Casts Urine 0-2 /LPF (0-2); RBC Urine 0-2 /HPF (0-2); Squamous Epithelial Cell Urine 0-2 /HPF (0-2); WBC Urine 0-5 /HPF (0-5)
== END 2024-12-22 09:33 | disposition home or self-care (01) ==
LOC: HO.HMGCLDS 09:32
PROVIDERS: PCP Nurse Practitioner Family; Visit Provider Nurse Practitioner Family
DX: E11.9 Type 2 diabetes mellitus without complications (principal); R60.9 Edema, unspecified; E87.5 Hyperkalemia
CPT/HCPCS: 36415; 80051; 81001; 81003; 83036; 83880

== ENCOUNTER 2024-12-27 06:50 | Outpatient (AMB) | payer MEDICARE, SELFPAY ==
--- NOTE | 2024-12-27 07:06 | MHC.OFFVIS ---
Intake Visit Reasons: Elevated blood sugars Allergies moxifloxacin [From Avelox] Allergy (Unknown, Verified 12/27/24 07:20) hives Sulfa (Sulfonamide Antibiotics) Allergy (Unknown, Verified 12/27/24 07:20) hives doxycycline Adverse Reaction (Unknown, Verified 12/27/24 07:20) contraindicated Medication List - Last Reconciled 12/27/24 by Zac De Leon, CUSTOMER SOLUTIONS TEAMMATE- albuterol sulfate 90 mcg/actuation 2 puffs inhalation Q6H PRN aripiprazole 10 mg PO DAILY 90 days aspirin 325 mg PO DAILY atorvastatin 40 mg PO BEDTIME blood sugar diagnostic (eOriginalTouch Verio test strips) check blood glucose tid ac and for hypo/hyperglycemic episodes cyclobenzaprine 10 mg PO BID PRN 20 days diazepam 5 mg PO ONCE PRN 1 day ferrous sulfate 324 mg PO BID fexofenadine-pseudoephedrine 60-120 mg ER (Sofi-D 12 Hour) 1 tab PO .QD PRN hydroxyzine pamoate (Vistaril) 25 mg PO BEDTIME hyoscyamine sulfate (Levsin/SL) 0.125 mg PO BID ibuprofen 800 mg PO Q6H PRN insulin degludec (Tresiba FlexTouch U-100 insulin) 20 units (0.2 mL) subcut BEDTIME lancets tid testing metformin 1,000 mg PO BID Myrbetriq ER (mirabegron) 50 mg PO DAILY 90 days NS pen needle, diabetic (Easy Touch) As directed to inject insulin once a day phenazopyridine (Pyridium) 200 mg PO BID PRN sertraline 150 mg (1.5 x 100 mg) PO DAILY suvorexant (Belsomra) 15 mg PO BEDTIME 30 days HPI HPI Elevated blood sugars : Details: History of Present Illness The patient is a 54-year-old female presenting for the management of Type 2 Diabetes Mellitus. Over the last month, she has noticed an increase in her blood glucose levels, with a recent Hemoglobin A1c recorded at 8.0, notably higher than desired. These fluctuations began after acquiring a respiratory viral illness in fall that continues to impact her health. She reports intermittent low-grade fevers but denies symptoms of respiratory distress, chest pain, or acute stress episodes (does smoke cigarettes). Despite her recent difficulties in managing transportation for appointments, an agreement for follow-up was reached for three months ahead. Notably, she does not exhibit present neuropathic symptoms and had a benign microalbumin test. She understands the signs of hypoglycemia and appropriate interventions. NOTE: scheduled for a chest CT this month, i look forward to these results. NOTE: pt was on a dexamethasone taper during the middle of last month, which can clearly contribute to her sugar spikes as well. Review of Systems - General: Reports intermittent fevers up to 100.4?F - Respiratory: Denies shortness of breath - Cardiovascular: Denies chest pain Plan 1. 0. The patient is aware of monitoring for hypoglycemia and will record blood glucose readings via the patient portal. Emphasizing regular eye examinations and scheduled follow-up visits every three months, we will continue to monitor her diabetes management closely.: Discussion Notes During our conversation, I discussed with the patient the increase in Tresiba dosage from 14 to 20 units to improve her blood glucose control, given her elevated A1c of 8.0. We reviewed the significance of regular blood glucose monitoring and the necessity to promptly address signs of hypoglycemia. The patient was instructed on the importance of obtaining a regular eye examination to manage potential diabetic complications. I recommended a follow-up in three months to reevaluate her condition. The patient agreed to report her glucose levels via the portal, ensuring an adaptive management approach. Patient Instructions - Increase Tresiba to 20 units as discussed. - Monitor your blood glucose levels diligently. - Watch for and manage hypoglycemia immediately if it occurs. - Schedule and attend routine eye examinations. - Follow up in three months to assess your diabetic management. - Use the patient portal to share blood glucose readings regularly. [facility] Medical History Nicotine dependence, cigarettes, uncomplicated Insomnia Frontal headache Stroke Sinusitis, chronic Nontraumatic incomplete tear of right rotator cuff Dawit's paralysis Cervical neck pain with evidence of disc disease Basal cell carcinoma Ulcerative colitis Thyroid nodule Diabetes Epilepsy Surgical History History of cystoscopy History of abdominal hysterectomy History of tonsillectomy and adenoidectomy Family History Father Esophageal cancer Prostate CA Mental health disorder Mother Uterine cancer Depression Mental health disorder Maternal Grandmother Kidney problem Maternal Grandfather Diabetes mellitus Stroke Throat cancer Myocardial infarction Paternal Grandfather No problems noted. Paternal Grandmother No problems noted. Brother No problems noted. Sister Mental health disorder Daughter No problems noted. Daughter No problems noted. Social History Housing: House Alcohol intake: current Alcohol intake frequency: a few times a month Patient Tobacco Use Status: Current everyday Tobacco user e-Cigarette/Vaping Use: Currently Using Second Hand Smoke Exposure: No Substance Use Type: Marijuana service: No Current occupational status: disabled Cognitive needs: No Hearing needs: No Vision needs: No Telehealth Telehealth Telehealth Platform: [employer]ze Location of provider rendering services: practice address Location of patient: address on file Patient Identification confirmed using: Name, : Yes Telehealth method: video Patient verbally consented to treatment: Yes Patient verbally consented to billing insurance company: Yes Patient informed of any privacy concerns related to visit: Yes Minutes spent on Phone/Video with Pt.: 12 Assessment & Plan Assessment & Plan (1) Diabetes: Code(s): E11.9 - Type 2 diabetes mellitus without complications Category: Medical Plan . Medications: Changed From insulin degludec (Tresiba FlexTouch U-100 insulin) 14 units (0.14 mL) subcut BEDTIME 15 mL 1RF To insulin degludec (Tresiba FlexTouch U-100 insulin) 20 units (0.2 mL) subcut BEDTIME 15 mL 1RF Discontinued dexamethasone 1 tab three times a day for 3 days, 1 tab twice a day for 3 days, 1 tab daily for 3 days Discontinued Reason: Doctor's Order 4 mg PO DAILY 18 tabs 0RF 9 days Coding Level of Care Code Tele Est Pt Level 3 (17289) Diagnoses Diabetes E11.9
== END 2024-12-27 07:43 | disposition home or self-care (01) ==
LOC: HO.HMCC 06:51
PROVIDERS: PCP Nurse Practitioner Family; Visit Provider Nurse Practitioner Family
DX: E11.9 Type 2 diabetes mellitus without complications (principal)

== ENCOUNTER 2025-03-17 10:22 | Outpatient (REF) | payer MEDICARE, SELFPAY ==
--- NOTE | ~2025-03-17 | US_ITS ---
CLINICAL HISTORY: R35.0 - Frequency of micturition Ultrasound kidneys. COMPARISON: None Technique: Real time sonographic imaging, including color-flow imaging, was performed by the network systems analyst. Multiple technical sales representative static images were saved for review. FINDINGS: Right kidney: Cortical medullary differentiation is maintained. Normal color flow by Doppler. No calculus or focal parenchymal abnormality identified. No hydronephrosis. Right kidney size: 12.6 x 5.4 x 5.1 cm Left kidney: Cortical medullary differentiation is maintained. Normal color flow by Doppler. No calculus or focal parenchymal abnormality identified. No hydronephrosis. Left kidney size: 10.4 x 5.0 x 5.5 cm IMPRESSION: 1. No evidence of renal obstruction. No renal calculus identified bilaterally. This document has been electronically signed by: Kristian Conner MD on 03/17/2025 15:42:25
== END 2025-03-17 10:23 | disposition home or self-care (01) ==
LOC: HO.HMGCX 10:22
PROVIDERS: PCP Nurse Practitioner Family; Visit Provider Urology
DX: R35.0 Frequency of micturition (principal); R30.0 Dysuria; R31.29 Other microscopic hematuria
CPT/HCPCS: 76775

== ENCOUNTER → 2025-03-17 10:32 | Outpatient (BNV) | payer MEDICARE, MEDICAID, SELFPAY | PROVIDERS: PCP Nurse Practitioner Family; Visit Provider Radiology Diagnostic Radiology | DX: R35.0 Frequency of micturition (principal) | CPT/HCPCS: 76775 ==

== ENCOUNTER 2025-03-22 10:57 | Outpatient (REF) | payer MEDICARE, SELFPAY ==
--- OUTSIDE RECORDS SUMMARY | 2025-03-22 13:03 | XMS_ITS | Clinical Summary ---
Author Organization [employer] [facility] lin Address [address] [place] [address] Care Team Providers Care Professional Nursing Tutor Name Role Phone Zac De Leon NP Primary Care Provider + Allergies Active Allergy Reactions Criticality Noted Date Comments Moxifloxacin Hives Medium 08/07/2024 Sulfa (Sulfonamide Antibiotics) Hives Medium 07/14 Medications Tresiba FlexTouch U-100 100 unit/mL [...] 15 minutes).. 75 mL 4 025 Active hydrOXYzine (VISTARIL) 25 MG capsule 5 Active ferrous sulfate 324 mg (65 mg iron) TbEC TAKE 1 TABLET BY MOUTH TWICE DAILY 5 Active cyclobenzaprin e (FLEXERIL) 10 MG tablet Active Active Problems Problem Noted Date Diagnosed Date Basal cell carcinoma of chest 02/23/2018 Basal cell carcinoma of skin of lip 11/17/2017 Current smoker 11/17/2017 Type 2 diabetes mellitus wit hout complication, without long-term current use of insulin ([facility]) 11/17/2017 Encounters Date Type Department Care Team Description 01/25/2025 9:10 AM EDT E-Visit [facility] [address] [place] [address] Venkat Haley NP Acute non-recurrent pansinusitis (Primary Dx) 01/12/2025 8:30 AM EDT E-Visit [facility] [address] [place] [address] Annalisa Rogers NP Gingival and periodontal disease (Primary Dx) from Last 3 Months Social History Tobacco Use Types Packs/Day Years Used Date Smoking Tobacco: Every Day Cigarettes 0.5 31.6 Started: 08/07/1993 Passive Smoke Exposure: Never Smokeless [...] EDT Inhaled Oxygen Concentration - - Weight 59.4 kg (131 lb) 01/25/2025 9:19 AM EDT Height 154.9 cm (5' 1 ) 01/25/2025 9:19 AM EDT Body Mass Index 24.75 01/25/2025 9:19 AM EDT Plan of Treatment Health Maintenance Due Date Last Done Comments Colorectal Cancer: COLONOSCO PY Screening every 10 yrs (or Modifier) 1971 COVID-19 Vaccine Screening: Initial Series and Booster Status ([facility]) (#1) 1976 Diabetes: Retinopathy Screening 1981 Depression: Screening Annual ly using PHQ-2/9 in Adults 18 yrs or above (or HM Modifier)([facility]) 1989 Diabetes Care Foot Exam Scre ening: Yearly in adults with Diabetes (or HM Modifiers)([facility]) 1989 Diabetes Care: Kidney Health Evaluation Annually in adults aged 18 to 85 yrs (or HM Modifier)([facility]) 1989 Hepatitis C Virus Infection in Adolescents and Adults: Screening (or Modifier) ([facility]) 1989 DARIO Screening: Once using ST OP-BANG Questionnaire for Adults with Conditions or high BMI([facility]) 1989 SDOH Screening Reminder: Kamala salazar for all adults ([facility]) 1989 DTaP/Tdap/Td Vaccines ([facility]) (1 - Tdap) 1990 Pneumococcal Vaccination Scr eening: Patients 50+ yrs of age ([facility]) (1 of 2 - PCV) 1990 Zoster/Shingles Vaccine Seri es Screening: Adults aged 18+ yrs (or HM Modifiers)([facility]) (1 of 2) 1990 Colorectal Cancer Screening 45 -75 Yrs (or HM Modifier) 2016 Colorectal Cancer: FLEXIBLE SIGMOIDOSCOPY Screening every 5 yrs 2016 Colorectal Cancer: Fecal Imm unochemical Test (FIT) Annually [facility] 2016 Colorectal Cancer: High-sens itivity gFOBT Screening Annually [facility] 2016 Colorectal Cancer: Stool Col oguard Screening every 3 yrs 2016 Colorectal Cancer:CT Colonog priyank Screening every 5 yrs 2016 Breast Cancer: Screening Kamala marie age 50-74 yrs (or HM Modifier)([facility]) 2021 Flu Vaccination: Yearly for ages 18mos through 64 years (or Modifier)([facility]) 05/13/2025 Diabetes Care: Statin Therap y for adults with DM ages 21+ yrs old ([facility]) 08/02/2025 08/02/2024 Tobacco Smoking Cessation: i n Adults excluding Women: Behavioral and Pharmacotherapy Interventions ([facility]) 01/25/2026 01/25/2025 Medical Devices Not on file Insurance MEDICARE Care Teams Professional Nursing Tutor Relationship Specialty Start Date End Date Zac De Leon NP [address] [place] [address] PCP - General Family Medicine 11/08/24
[2025-03-22 13:23] LABS: Appearance Urine Clear; Color Urine Dark Yellow; Glucose Urine UA Negative (Negative); Leukocyte Esterase Urine Negative (Negative); Nitrite Urine Negative (Negative); PH 5.5 (5.0-9.0); Specific Gravity - Urine >= 1.030 (1.005-1.025); UMIC TRIGGER UA YES; Urine Blood Negative (Negative); Urine Ketones Trace mg/dL (Negative); Urine Protein 30 (1+) mg/dL (Neg-Trace)
[2025-03-22 13:27] LABS: Bacteria Urine Trace (None Seen); RBC Urine 0-2 /HPF (0-2); WBC Urine 0-5 /HPF (0-5)
== END 2025-03-22 10:58 | disposition home or self-care (01) ==
LOC: HO.HMGCLDS 10:57
PROVIDERS: PCP Nurse Practitioner Family; Visit Provider Urology
DX: N30.01 Acute cystitis with hematuria (principal)
CPT/HCPCS: 81001; 87086

== ENCOUNTER 2025-03-29 14:00 | Outpatient (AMB) | payer MEDICARE, MEDICAID, SELFPAY ==
[2025-03-29 14:07] VITALS: BP 118/76; PULSE 84; O2SAT 98; BMI 26.3
--- NOTE | 2025-03-29 14:07 | A.OFFPC_ITS ---
Vital Signs 03/29/25 14:07 Height 5 ft 1 in Weight 139 lb BMI 26.3 BP 118/76 Blood Pressure Location Lt brachial Position Sitting Pulse 84 Pulse Source Pulse Oximeter Pulse Oximetry (%) 98 Intake Visit Reasons: 3m follow up dm Salesforce Consultant Required: No Accompanied by: Self / Same As Patient Allergies moxifloxacin [From Avelox] Allergy (Unknown, Verified 03/29/25 14:08) hives Sulfa (Sulfonamide Antibiotics) Allergy (Unknown, Verified 03/29/25 14:08) hives doxycycline Adverse Reaction (Unknown, Verified 03/29/25 14:08) contraindicated Medication List - Last Reconciled 03/29/25 by Zac De Leon, UNDER SEAL OPERATOR- albuterol sulfate 90 mcg/actuation 2 puffs inhalation Q6H PRN aripiprazole 10 mg PO DAILY 90 days aspirin 325 mg PO DAILY atorvastatin 40 mg PO BEDTIME blood sugar diagnostic (LetMeGoTouch Verio test strips) check blood glucose tid ac and for hypo/hyperglycemic episodes cyclobenzaprine 10 mg PO BID PRN 20 days ferrous sulfate 324 mg PO BID fexofenadine-pseudoephedrine 60-120 mg ER (Sofi-D 12 Hour) 1 tab PO .QD PRN hydroxyzine pamoate (Vistaril) 25 mg PO BEDTIME hyoscyamine sulfate (Levsin/SL) 0.125 mg PO BID ibuprofen 800 mg PO Q6H PRN insulin degludec (Tresiba FlexTouch U-100 insulin) 20 units (0.2 mL) subcut BEDTIME lancets tid testing metformin 1,000 mg PO BID Myrbetriq ER (mirabegron) 50 mg PO DAILY 90 days NS pen needle, diabetic (Easy Touch) As directed to inject insulin once a day sertraline 150 mg (1.5 x 100 mg) PO DAILY suvorexant (Belsomra) 15 mg PO BEDTIME 30 days Tobacco use date assessed: 03/29/25 Dental Screening Dental Screen Date: 03/29/25 Did you have a dental visit in the last 12 months?: Yes Did you have a dental problem in the last 6 months where you did not have access to dental care?: No Was dental information given to patient?: Patient has dentist HPI 3m follow up dm HPI Details Chief Complaint The patient presents for diabetes management follow-up. History of Present Illness The patient is a 54-year-old female presenting with diabetes management follow- up. She has been managing her diabetes with long-acting insulin, previously at 20 units, but due to episodes of hypoglycemia, the dosage has been adjusted to 16 units. Her current HbA1c is 7.4%. The patient reports neuropathy, with a lack of sensation noted during the monofilament test, although her feet are intact. She denies experiencing polyuria or polydipsia. The patient has a history of smoking and was previously referred to a low-dose CT scan program for lung cancer screening, which she could not attend due to scheduling conflicts. Social History - Smoking history: Previously referred f or lung cancer screening Health Maintenance - Smoking cessation program referral Review of Systems - Endocrine: Denies polyuria, polydipsia - Neurological: Reports neuropathy -denies any cp, sob, n/v, dizziness Physical Exam General: Cooperative, healthy appearing, comfortable, no acute distress and well developed Orientation: Patient oriented x3 Limitations: No limitations Head: Normal to inspection Ears: Hearing grossly normal bilaterally Nose: Normal external nose present Face and sinus: Normal facial exam Eyes: Appearance normal, both eyes and all related structures Neck: Normal visual inspection and Yes full ROM Respiratory: Normal respiratory effort and able to speak in complete sentences. Lungs were fairly clear Cardiovascular: Regular rate and rhythm. Normal S1 and S2 GI: Normal to inspection. Soft to palpation and nontender Skin: No rashes or lesions noted Neuro: Does have some neuropathy, denies any polyuria or polydipsia. Lack of sensation with use of monofilament noted though feet were intact Extremities: Normal to inspection Results - Labs: HbA1c 7.4% Plan The patient's diabetes management will continue with an adjusted insulin dosage of 16 units to prevent hypoglycemic episodes. She is advised to schedule her own eye exam to monitor for diabetic retinopathy. Given her history of smoking, she is encouraged to participate in a smoking cessation program and will be re- referred to the low-dose CT scan program for lung cancer screening. Discussion Notes I discussed with the patient the importance of adjusting her insulin dosage to 16 units to avoid hypoglycemia and emphasized the need for regular eye exams to monitor for complications of diabetes. We also talked about the benefits of smoking cessation and the importance of lung cancer screening, and I will facilitate her re-entry into the low-dose CT scan program. Patient Instructions - Continue with 16 units of long-acting insulin. - Schedule an eye exam for diabetic reti nopathy screening. - Participate in a smoking cessation pro gram. - Follow up with the low-dose CT scan maggie portillo for lung cancer screening. [facility] Medical History Epilepsy History of CVA (cerebrovascular accident) Dawit's paralysis Frontal headache Thrombocytosis Iron deficiency anemia Diabetes Thyroid nodule Ulcerative colitis Nicotine dependence, cigarettes, uncomplicated Sinusitis, chronic Basal cell carcinoma Insomnia Nontraumatic incomplete tear of right rotator cuff Cervical neck pain with evidence of disc disease Surgical History History of cystoscopy History of abdominal hysterectomy History of tonsillectomy and adenoidectomy Family History Father Esophageal cancer Prostate CA Mental health disorder Mother Uterine cancer Depression Mental health disorder Maternal Grandmother Kidney problem Maternal Grandfather Diabetes mellitus Stroke Throat cancer Myocardial infarction Paternal Grandfather No problems noted. Paternal Grandmother No problems noted. Brother No problems noted. Sister Mental health disorder Daughter No problems noted. Daughter No problems noted. Social History Housing: House Alcohol intake: current Alcohol intake frequency: a few times a month Patient Tobacco Use Status: Current everyday Tobacco user e-Cigarette/Vaping Use: Currently Using Second Hand Smoke Exposure: No Substance Use Type: Marijuana service: No Current occupational status: disabled Cognitive needs: No Hearing needs: No Vision needs: No Questionnaire PHQ-9 Over the last 2 weeks, how often have you been bothered by any of the following problems? 1. Little interest or pleasure in doing things: not at all 2. Feeling down, depressed, or hopeless: several days 3. Trouble falling or staying asleep, or sleeping too much: not at all 4. Feeling tired or having little energy: several days 5. Poor appetite or overeating: not at all 6. Feeling bad about yourself - or that you are a failure or have let yourself or your family down: several days 7. Trouble concentrating on things, such as reading the newspaper or watching television: not at all 8. Moving or speaking so slowly that other people could have noticed. Or the opposite - being so fidgety or restless that you have been moving around a lot more than usual: not at all 9. Thoughts that you would be better off or of hurting yourself in some way: not at all Total score: 3 Depression Screening Interpretation: Negative Depression Screening Done: Yes 79133 - PHQ-9 Billing: Yes Source: Developed by Drs. Joss Gutierrez, Ami Hinton, Juan David Mercado and colleagues, with an educational emilie from [employer]. Thrive Questionnaire Date Thrive assessed: 03/29/25 I am a: Patient What is your living situation today?: I have a steady place to live Within the past 12 months, did the food you bought not last and you didn't have the money to get more?: Never true Within the past 12 months, did you worry whether your food would run out before you got money to buy more?: Never true Do you have trouble paying for medicines?: Yes Do you have trouble getting transportation to medical appointments?: Yes Do you have trouble paying your heating and electricity bill?: No Do you have trouble taking care of your child, family member or friend?: No Do you have trouble with day-to-day activities such as bathing, preparing meals, shopping, managing finances, etc.?: No Are you currently unemployed and looking for a job?: No Are you interested in more education?: No Please select the resources that you would like help with: Paying for medicine Currently or been in a relationship where the following occur: No concerns reported THRIVE Score: 1 AUDIT C Alcohol Use Questionnaire (AUDIT-C) 1. How often do you have a drink containing alcohol?: Monthly or less 2. How many drinks containing alcohol do you have on a typical day when you are drinking?: 1 or 2 3. How often do you have six or more drinks on one occasion?: Never Total Score: 1 Score Reviewed/Action Taken: Yes MICAELA-7 AMB Questionnaire MICAELA-7 Date MICAELA - 7 assessed: 03/29/25 Feeling nervous, anxious, or on edge: 1 = Several days Not being able to stop or control worryin = Several days Worrying too much about different things: 1 = Several days Trouble relaxin = Several days Being so restless that it is hard to sit still: 1 = Several days Becoming easily annoyed or irritable: 0 = Not at all Feeling afraid as if something awful might happen: 0 = Not at all Total MICAELA-7 score (0-4 normal; 5-9 mild; 10-14 moderate; 15-21 severe): 5 Source: Developed by Drs. Joss Gutierrez, Ami Hinton, Juan David Mercado and colleagues, with an educational emilie from [employer]. MICAELA-7 Assessment Billing MICAELA-7 Assessment Tool: MICAELA-7 Assessment 56112 Physical exam (Primary Care) Vital Signs: Last Vital Signs Pulse 84 03/29/25 14:07 BP 118/76 03/29/25 14:07 Pulse Ox 98 03/29/25 14:07 BMI result Body Mass Index 26.3 Tobacco/Smoking Status: Tobacco use Status Tobacco use date assessed 03/29/25 03/29/25 14:09 Patient Tobacco Use Status Current everyday Tobacco 03/29/25 14:09 e-Cigarette/Vaping Use Currently Using 03/29/25 14:09 PHQ-9: PHQ-9 Score PHQ-9: Total score 3 03/29/25 14:14 Depression Screening Interpretation: Negative Thrive Assessment: Date of Thrive Assessment Date Thrive assessed 03/29/25 03/29/25 14:09 Currently or been in a relationship where the following occur: No concerns reported Coding Level of Care Code Est Pt Level 3 (91831) Diagnoses Diabetes E11.9 Additional Codes MICAELA-7 Assessment Billing - MICAELA-7 Assessment Tool: MICAELA-7 Assessment 42415 ([id number]) PHQ-9 - 70034 - PHQ-9 Billing: Yes ([id number]) Assessment & Plan Assessment & Plan (1) Diabetes: Code(s): E11.9 - Type 2 diabetes mellitus without complications Category: Medical Plan . Orders: Orders Complete Blood Count Auto Diff Today E11.9 - Type 2 diabetes mellitus without complications TSH reflex Free T4 Today E11.9 - Type 2 diabetes mellitus without complications UA CC w/rflx Micro + Cult Today E11.9 - Type 2 diabetes mellitus without complications Lipid Panel Today E11.9 - Type 2 diabetes mellitus without complications Comprehensive [place]. Panel Fast Today E11.9 - Type 2 diabetes mellitus without complications Medications: New amoxicillin-pot clavulanate 875-125 mg 1 tab PO BID 10 days 20 tabs 0RF
--- OUTSIDE RECORDS SUMMARY | 2025-03-29 16:08 | XMS_ITS | Encounter Summary ---
Author Organization [facility] Address [address] [place] [address] Care Team Providers Care Apartment Maintenance Manager Name Role Phone [facility], Pcp Primary Care Provider Unavailabl e Encounter Details Date Type Department Care Team Description 01/03/2018 Hospital Medical Records [address] [place] [address] Ed Davidson DO Social History Tobacco Use [...] on filedocumented in this encounter Care Teams Apartment Maintenance Manager Relationship Specialty Start Date End Date Community, Pcp PCP - General Internal Medicine 11/11/17 documented as of this encounter
== END 2025-03-29 14:58 | disposition home or self-care (01) ==
LOC: HO.HMCC 14:01
PROVIDERS: PCP Nurse Practitioner Family; Visit Provider Nurse Practitioner Family
DX: E11.9 Type 2 diabetes mellitus without complications (principal)

== ENCOUNTER → 2025-03-29 14:00 | Outpatient (BNVA) | payer MEDICARE, SELFPAY | PROVIDERS: PCP Nurse Practitioner Family; Visit Provider Nurse Practitioner Family | DX: E11.9 Type 2 diabetes mellitus without complications (principal) | CPT/HCPCS: 96127; 99212 ==

== ENCOUNTER 2025-06-14 06:41 | Outpatient (AMB) | payer MEDICARE, SELFPAY ==
--- OUTSIDE RECORDS SUMMARY | 2025-06-14 06:45 | XMS_ITS | Clinical Summary ---
Author Organization [facility] lin Address [address] [place] [address] Care Team Providers Care Childhood Teacher Name Role Phone Zac De Leon NP [...] complication, without long-term current use of insulin ([facility]) 11/17/2017 Encounters Date Type Department Care Team Description 04/23/2025 11:00 AM EDT Office Visit [facility] Djames [address] [place] [address] Blanca Meyer NP Cellulitis and abscess of oral soft tissues (Primary Dx); Disorder of teeth and supporting structures from Last 3 Months Social History Tobacco Use Types Packs/Day Years Used Date Smoking Tobacco: Every Day Cigarettes 0.5 31.9 Started: 08/07/1993 Passive Smoke Exposure: Never Smokeless Tobacco: Never Tobacco Cessation:Ready to Q uit: No; Counseling Given: Yes PHQ-2 Answer Date Recorded PHQ-2 Total Score 0 04/22/2025 Comments No Sex and Gender Information Value Date Recorded Sex Assigned at Not on file Legal Sex Female 4:35 PM EDT Gender Identity Not on file Sexual Orientation Not on file Last Filed Vital Signs Vital Sign Reading Time Taken Comments Blood Pressure 109/74 04/23/2025 11:07 AM EDT Pulse 97 04/23/2025 11:07 AM EDT Temperature 36.4 C (97.5 F) 04/23/2025 11:07 AM EDT Respiratory Rate 18 04/23/2025 11:07 AM EDT Oxygen Saturation 95% 08/07/2024 1:55 PM EDT Inhaled Oxygen Concentration - - Weight 59.4 kg (131 lb) 01/25/2025 9:19 AM EDT Height 154.9 cm (5' 1 ) 01/25/2025 9:19 AM EDT Body Mass Index 24.75 01/25/2025 9:19 AM EDT Plan of Treatment Health Maintenance Due Date Last Done Comments Colorectal Cancer: [place]ONOS[place] PY Screening every 10 yrs (or Modifier) 1971 Diabetes: Retinopathy Screening 1981 Diabetes Care Foot Exam Scre ening: Yearly in adults with Diabetes (or HM Modifiers)([facility]) 1989 Diabetes Care: Kidney Health Evaluation Annually in adults aged 18 to 85 yrs (or HM Modifier)([facility]) 1989 Hepatitis C Virus Infection in Adolescents and Adults: Screening (or Modifier) ([facility]) 1989 DARIO Screening: Once using ST OP-BANG Questionnaire for Adults with Conditions or high BMI([facility]) 1989 SDOH Screening Reminder: Kamala salazar for all adults ([facility]) 1989 DTaP/Tdap/Td Vaccines ([facility]) (1 - Tdap) 1990 Pneumococcal Vaccination Scr eening: Patients 50+ yrs of age ([facility]) (1 of 2 - PCV) 1990 Zoster/Shingles Vaccine Seri es Screening: Adults aged 18+ yrs (or HM Modifiers)([facility]) (1 of 2) 1990 Colorectal Cancer Screening 45 -75 Yrs (or HM Modifier) 2016 Colorectal Cancer: FLEXIBLE SIGMOIDOSCOPY Screening every 5 yrs 2016 Colorectal Cancer: Fecal Imm unochemical Test (FIT) Annually [facility] 2016 Colorectal Cancer: High-sens itivity gFOBT Screening Annually [facility] 2016 Colorectal Cancer: Stool Col oguard Screening every 3 yrs 2016 Colorectal Cancer:CT Colonog priyank Screening every 5 yrs 2016 Breast Cancer: Screening Kamala salazar age 50-74 yrs (or HM Modifier)([facility]) 2021 Flu Vaccination: Yearly for ages 18mos through 64 years (or Modifier)([facility]) 05/13/2025 Diabetes Care: Statin Therap y for adults with DM ages 21+ yrs old ([facility]) 08/02/2025 08/02/2024 Depression: Screening Annual ly using PHQ-2/9 in Adults 18 yrs or above (or HM Modifier)([facility]) 04/22/2026 04/22/2025 Tobacco Smoking Cessation: i n Adults excluding Women: Behavioral and Pharmacotherapy Interventions ([facility]) 04/23/2026 04/23/2025 Medical Devices Not on file Insurance MEDICARE Care Teams Childhood Teacher Relationship Specialty Start Date End Date Zac De Leon NP [address] [place] [address] PCP - General Family Medicine 11/08/24
--- NOTE | 2025-06-14 07:30 | A.OFFPC_ITS ---
Intake Visit Reasons: Smoking cessation-req Chantix iPhone Allergies moxifloxacin (From Avelox) Allergy (Unknown, Verified 03/29/25 14:08) hives Sulfa (Sulfonamide Antibiotics) Allergy (Unknown, Verified 03/29/25 14:08) hives doxycycline Adverse Reaction (Unknown, Verified 03/29/25 14:08) contraindicated Medication List - Last Reconciled 06/14/25 by Zac De Leon, COLOR BLENDER- albuterol sulfate 90 mcg/actuation 2 puffs inhalation Q6H PRN amoxicillin-pot clavulanate 875-125 mg 1 tab PO BID 10 days aripiprazole 10 mg PO DAILY 90 days aspirin 325 mg PO DAILY atorvastatin 40 mg PO BEDTIME blood sugar diagnostic ([employer] Verio test strips) check blood glucose tid ac and for hypo/hyperglycemic episodes cyclobenzaprine 10 mg PO BID PRN 20 days ferrous sulfate 324 mg PO BID fexofenadine-pseudoephedrine 60-120 mg ER (Sofi-D 12 Hour) 1 tab PO .QD PRN hydroxyzine pamoate (Vistaril) 25 mg PO BEDTIME hyoscyamine sulfate (Levsin/SL) 0.125 mg PO BID ibuprofen 800 mg PO Q6H PRN insulin degludec (Tresiba FlexTouch U-100 insulin) 20 units (0.2 mL) subcut BEDTIME lancets tid testing metformin 1,000 mg PO BID Myrbetriq ER (mirabegron) 50 mg PO DAILY 90 days NS pen needle, diabetic (Easy Touch) As directed to inject insulin once a day sertraline 150 mg (1.5 x 100 mg) PO DAILY suvorexant (Belsomra) 15 mg PO BEDTIME 30 days varenicline tartrate (Chantix Starting Month Box) PO PER PKG DIR Tobacco use date assessed: 03/29/25 Dental Screening Dental Screen Date: 03/29/25 HPI Smoking cessation-req Chantix iPhone HPI Details History of Present Illness The patient is a 54-year-old female presenting with a desire to quit smoking. She has previously attempted to quit using Chantix but did not continue the treatment due to a lack of commitment at that time. She denies any current suicidal or homicidal ideation, and she was educated on the potential side effects of Chantix, including spontaneous suicidal ideation and vivid dreams. The patient is motivated to quit smoking now due to the of her new grandson, indicating a serious commitment to cessation this time. Review of Systems - Psychiatric: Denies suicidal ideation, denies homicidal ideation. Plan 1. Tobacco Use Disorder The patient will be started on a Chantix starter pack, transitioning to a continuing pack as part of her smoking cessation plan. She has been informed of the potential side effects, including suicidal ideation and vivid dreams, and understands the importance of reporting any adverse effects immediately. Discussion Notes I discussed with the patient the plan to initiate Chantix for smoking cessation, starting with a starter pack and moving to a continuing pack. I explained the potential side effects, including the risk of suicidal ideation and vivid dreams, and emphasized the importance of contacting me if she experiences any adverse effects. Patient Instructions - Start Chantix as prescribed, beginning with the starter pack. - Be aware of potential side effects suc h as suicidal thoughts and vivid dreams. - Contact the healthcare provider immedi ately if any adverse effects occur. [facility] Medical History Epilepsy History of CVA (cerebrovascular accident) Dawit's paralysis Frontal headache Thrombocytosis Iron deficiency anemia Diabetes Thyroid nodule Ulcerative colitis Nicotine dependence, cigarettes, uncomplicated Sinusitis, chronic Basal cell carcinoma Insomnia Nontraumatic incomplete tear of right rotator cuff Cervical neck pain with evidence of disc disease Surgical History History of cystoscopy History of abdominal hysterectomy History of tonsillectomy and adenoidectomy Family History Father Esophageal cancer Prostate CA Mental health disorder Mother Uterine cancer Depression Mental health disorder Maternal Grandmother Kidney problem Maternal Grandfather Diabetes mellitus Stroke Throat cancer Myocardial infarction Paternal Grandfather No problems noted. Paternal Grandmother No problems noted. Brother No problems noted. Sister Mental health disorder Daughter No problems noted. Daughter No problems noted. Social History Housing: House Alcohol intake: current Alcohol intake frequency: a few times a month Patient Tobacco Use Status: Current everyday Tobacco user e-Cigarette/Vaping Use: Currently Using Second Hand Smoke Exposure: No Substance Use Type: Marijuana service: No Current occupational status: disabled Cognitive needs: No Hearing needs: No Vision needs: No Questionnaire Thrive Questionnaire Date Thrive assessed: 12/16/24 I am a: Patient What is your living situation today?: I have a steady place to live Within the past 12 months, did the food you bought not last and you didn't have the money to get more?: Never true Within the past 12 months, did you worry whether your food would run out before you got money to buy more?: Never true Do you have trouble paying for medicines?: Yes Do you have trouble getting transportation to medical appointments?: Yes Do you have trouble paying your heating and electricity bill?: No Do you have trouble taking care of your child, family member or friend?: No Do you have trouble with day-to-day activities such as bathing, preparing meals, shopping, managing finances, etc.?: No Are you currently unemployed and looking for a job?: No Are you interested in more education?: No Please select the resources that you would like help with: Paying for medicine Currently or been in a relationship where the following occur: No concerns reported THRIVE Score: 1 MICAELA-7 AMB Questionnaire MICAELA-7 Date MICAELA - 7 assessed: 03/29/25 Source: Developed by Drs. Joss Gutierrez, Ami Hinton, Juan David Mercado and colleagues, with an educational emilie from [employer]. Physical exam (Primary Care) Tobacco/Smoking Status: Tobacco use Status Tobacco use date assessed 03/29/25 03/29/25 14:09 Patient Tobacco Use Status Current everyday Tobacco 03/29/25 14:09 e-Cigarette/Vaping Use Currently Using 03/29/25 14:09 Thrive Assessment: Date of Thrive Assessment Date Thrive assessed 12/16/24 06/07/25 12:09 Currently or been in a relationship where the following occur: No concerns re ported Telehealth Telehealth Telehealth Platform: [facility] Location of provider rendering services: practice address Location of patient: address on file Patient Identification confirmed using: Name, : Yes Telehealth method: video Patient verbally consented to treatment: Yes Patient verbally consented to billing insurance company: Yes Patient informed of any privacy concerns related to visit: Yes Minutes spent on Phone/Video with Pt.: 12 Coding Level of Care Code Tele Est Pt Level 3 (90874) Diagnoses Nicotine dependence, cigarettes, uncomplicated F17.210 Assessment & Plan Assessment & Plan (1) Nicotine dependence, cigarettes, uncomplicated: Code(s): F17.210 - Nicotine dependence, cigarettes, uncomplicated Category: Medical Plan . Medications: New varenicline tartrate (Chantix Starting Month Box) PO PER PKG DIR 53 ea 0RF Refilled amoxicillin-pot clavulanate 875-125 mg 1 tab PO BID 20 tabs 0RF 10 days
== END 2025-06-14 08:02 | disposition home or self-care (01) ==
LOC: HO.HMCC 06:42
PROVIDERS: PCP Nurse Practitioner Family; Visit Provider Nurse Practitioner Family
DX: F17.210 Nicotine dependence, cigarettes, uncomplicated (principal)

== ENCOUNTER 2025-08-02 08:41 | Outpatient (REF) | payer MEDICARE, MEDICAID, SELFPAY ==
--- OUTSIDE RECORDS SUMMARY | 2025-08-02 09:00 | XMS_ITS | Encounter Summary ---
Author Organization [facility] Address [address] [place] [address] Care Team Providers Care A P Mechanic Name Role Phone [facility], Pcp Primary Care Provider Unavailabl e Encounter Details Date Type Department Care Team Description 01/03/2018 Hospital Medical Records [address] [place] [address] Ed Davidson DO Social History Tobacco Use [...] on filedocumented in this encounter Care Teams A P Mechanic Relationship Specialty Start Date End Date Community, Pcp PCP - General Internal Medicine 11/11/17 documented as of this encounter
--- OUTSIDE RECORDS SUMMARY | 2025-08-02 09:00 | XMS_ITS | Clinical Summary ---
Author Organization [facility] lin Address [address] [address] Care Team Providers Care Hop Sorter Name Role Phone Zac De Leon NP [...] minutes).. 75 mL 08/30/20 24 025 Active hydrOXYzine (VISTARIL) 25 MG capsule 01/12/20 25 Active ferrous sulfate 324 mg (65 mg iron) TbEC TAKE 1 TABLET BY MOUTH TWICE DAILY 12/16/19 25 Active cyclobenzaprin e (FLEXERIL) 10 MG tablet 12/06/19 25 Active amoxicillin-cl avulanate (AUGMENTIN) 875-125 mg tablet Take 1 tablet by mouth 2 (two) times a day for 7 days 14 tablet 07/24/20 25 025 Active Problems Problem Noted Date Diagnosed Date Basal cell carcinoma of chest 02/23/2018 Basal cell carcinoma of skin of lip 11/17/2017 Current smoker 11/17/2017 Type 2 diabetes mellitus wit hout complication, without long-term current use of insulin 11/17/2017 Encounters Date Type Department Care Team Description 07/24/2025 6:50 AM EDT E-Visit [facility] [address] [place] [address] Jodie Farias NP Gingival and periodontal disease (Primary Dx) from Last 3 Months Social History Tobacco Use Types Packs/Day Years Used Date Smoking Tobacco: Every Day Cigarettes 0.5 32 Started: 08/07/1993 Passive Smoke Exposure: Never Smokeless Tobacco: Never Tobacco Cessation:Ready to Q uit: Not Asked; Counseling Given: Yes PHQ-2 Answer Date Recorded [...] Vaccine Screening: Initial Series and Booster Status ([facility]) (#1) 1976 Diabetes: Retinopathy Screening 1981 Diabetes Care Foot Exam Scre ening: Yearly in adults with Diabetes (or HM Modifiers)([facility]) 1989 Diabetes Care: Kidney Health Evaluation Annually in adults aged 18 to 85 yrs (or HM Modifier)([facility]) 1989 Hepatitis C Virus Infection in Adolescents and Adults: Screening (or Modifier) ([facility]) 1989 DARIO Screening: Once using ST OP-BANG Questionnaire for Adults with Conditions or high BMI([facility]) 1989 SDOH Screening Reminder: Kamala salazar for all adults ([facility]) 1989 DTaP/Tdap/Td Vaccines ([facility]) (1 - Tdap) 1990 Pneumococcal Vaccination Scr eening: Patients 50+ yrs of age ([facility]) (1 of 2 - PCV) 1990 Zoster/Shingles Vaccine Seri es Screening: Adults aged 18+ yrs (or HM Modifiers)([facility]) (1 of 2) 1990 Colorectal Cancer Screening 45 -75 Yrs (or HM Modifier) 2016 Colorectal Cancer: FLEXIBLE SIGMOIDOSCOPY Screening every 5 yrs 2016 Colorectal Cancer: Fecal Imm unochemical Test (FIT) Annually [facility] 2016 Colorectal Cancer: High-sens itivity gFOBT Screening Annually [facility] 2016 Colorectal Cancer: Stool Col oguard Screening every 3 yrs 2016 Colorectal Cancer:CT Colonog priyank Screening every 5 yrs 2016 Breast Cancer: Screening Kamala marie age 50-74 yrs (or HM Modifier)([facility]) 2021 Flu Vaccination: Yearly for ages 18mos through 64 years (or Modifier)([facility]) 05/13/2025 Diabetes Care: Statin Therap y for adults with DM ages 21+ yrs old ([facility]) 08/02/2025 08/02/2024 Depression: Screening Annual ly using PHQ-2/9 in Adults 18 yrs or above (or HM Modifier)([facility]) 04/22/2026 04/22/2025 Tobacco Smoking Cessation: i n Adults excluding Women: Behavioral and Pharmacotherapy Interventions ([facility]) 07/24/2026 07/24/2025 Medical Devices Not on file Insurance MEDICARE Care Teams Hop Sorter Relationship Specialty Start Date End Date Zac De Leon NP [address] [place] [address] PCP - General Family Medicine 11/08/24
--- OUTSIDE RECORDS SUMMARY | 2025-08-02 09:00 | XMS_ITS | Encounter Summary ---
Author Organization [facility] Address [address] [place] [address] Care Team Providers Care District Manager Name Role Phone Community, Pcp Primary Care Provider Unavailabl e Encounter Details Date Type Department Care Team Description 01/05/2018 Orders Only Plastic Surgery - [place] [address] [place] [address] Ed Davidson DO Social History [...] on filedocumented in this encounter Care Teams District Manager Relationship Specialty Start Date End Date Community, Pcp PCP - General Internal Medicine 11/11/17 documented as of this encounter
--- OUTSIDE RECORDS SUMMARY | 2025-08-02 09:01 | XMS_ITS | Encounter Summary ---
Author Organization [facility] Address [address] [place] [address] Care Team Providers Care Parts Advisor Name Role Phone [facility], Pcp Primary Care Provider Unavailabl e Encounter Details Date Type Department Care Team Description 02/16/2018 [employer] Construction Worker Report Medical Records [address] [place] [address] Lucrecia Cervantes MD Social History Tobacco Use Types Packs/Day Years [...] on filedocumented in this encounter Care Teams Parts Advisor Relationship Specialty Start Date End Date Community, Pcp PCP - General Internal Medicine 11/11/17 documented as of this encounter
--- OUTSIDE RECORDS SUMMARY | 2025-08-02 09:01 | XMS_ITS | Clinical Summary ---
Author Organization [facility] Address [address] [place] [address] Care Team Providers Care Electrical Assemblies Supervisor Name Role Phone Community, Pcp Primary Care [...] dosage 0 Active Blood Glucose Monitoring Suppl ([employer] VERIO) W/DEVICE Kit by Does not apply [...] 72 05/01/2018 9:54 AM EDT Temperature 35.4 C (95.7 F) 05/01/2018 9:54 AM EDT Respiratory Rate 16 05/01/2018 9:54 AM EDT [...] 2021 SHINGLES VACCINE (1 of 2) 2021 BMI CHECK/ADVISE 10/13/2024 12/26/2017 INFLUENZA (#1) 2025 Care Teams Electrical Assemblies Supervisor Relationship Specialty Start Date End Date Community, Pcp PCP - General Internal Medicine 11/11/17
--- OUTSIDE RECORDS SUMMARY | 2025-08-02 09:01 | XMS_ITS | Encounter Summary ---
Author Organization [facility] Address [address] [place] [address] Care Team Providers Care Honing Job Setter Name Role Phone [facility], Pcp Primary Care Provider Unavailabl e Encounter Details Date Type Department Care Team Description 01/03/2018 Night Triage Doc Medical Records [address] [place] [address] Abstract, Provider Social History Tobacco Use Types [...] on filedocumented in this encounter Care Teams Honing Job Setter Relationship Specialty Start Date End Date Community, Pcp PCP - General Internal Medicine 11/11/17 documented as of this encounter
[2025-08-02 10:40] LABS: MANUAL DIFF FLAG NO
[2025-08-02 10:55] LABS: Hematocrit 41.1 % (37.0-47.0); Hemoglobin 13.3 g/dl (12.0-16.0); Imm Gran Abs Auto 0.03 X10*3/uL (0.00-0.03); Imm Gran Pct Auto 0.4 % (0.0-0.4); Lymphocytes Absolute Auto 2.5 X10*3/uL (1.2-4.9); Mean Corpuscular HGB Conc 32.4 g/dl (31.0-35.0); Mean Corpuscular Hemoglobin 29.1 pg (27.0-33.0); Mean Corpuscular Volume 89.9 fL (80.0-98.0); NRBC Abs Auto 0.000 X10*3/uL (0.0-0.012); NRBC Pct Auto 0.0 /100WBC (0.0-0.2); Platelet Count 455 X10*3/uL (160-400); Red Blood Count 4.57 X10*6/uL (4.20-5.50); White Blood Count 8.4 X10*3/uL (4.8-10.8)
[2025-08-02 11:27] LABS: Alanine Aminotransferase 18 U/L (0-31); Albumin Level 4.8 g/dL (3.5-5.0); Alkaline Phosphatase 85 U/L (39-117); Anion Gap 14 (12-20); Aspartate Amino Transferase 23 U/L (5-31); Blood Urea Nitrogen 12 mg/dL (9-16); Calcium 9.7 mg/dL (8.4-10.2); Carbon Dioxide 24 mmol/L (22-29); Chloride 106 mmol/L (96-108); Cholesterol 131 mg/dL (<200); Estimated Glomerular Filt Rate > 60; HDL Cholesterol 68 mg/dL (>40); Potassium 4.9 mmol/L (3.3-5.1); Sodium 139 mmol/L (135-145); Total Protein 7.5 g/dL (6.5-8.0); Triglycerides 90 mg/dL (<150)
[2025-08-02 14:26] LABS: Free T4 (Free Thyroxine) 1.02 ng/dL (0.71-1.85)
== END 2025-08-02 08:42 | disposition home or self-care (01) ==
LOC: HO.HMGCLDS 08:41
PROVIDERS: PCP Nurse Practitioner Family; Visit Provider Nurse Practitioner Family
DX: E11.9 Type 2 diabetes mellitus without complications (principal)
CPT/HCPCS: 36415; 80053; 80061; 83036; 84439; 84443; 85025

== ENCOUNTER 2025-08-04 13:50 | Outpatient (AMB) | payer MEDICARE, MEDICAID, SELFPAY ==
[2025-08-04 14:02] VITALS: BP 120/72; PULSE 82; RESP 16; O2SAT 98; BMI 26.6
--- NOTE | 2025-08-04 14:02 | MHC.PC.OV ---
Vital Signs 08/04/25 14:02 Height 5 ft 1 in Weight 141 lb BMI 26.6 BP 120/72 Blood Pressure Location Lt brachial Position Sitting Respiration 16 Pulse 82 Pulse Source Pulse Oximeter Pulse Oximetry (%) 98 Oxygen Delivery Method Room Air Intake Visit Reasons: 4m follow up Allergies moxifloxacin (From Avelox) Allergy (Unknown, Verified 08/04/25 14:19) hives Sulfa (Sulfonamide Antibiotics) Allergy (Unknown, Verified 08/04/25 14:19) hives doxycycline Adverse Reaction (Unknown, Verified 08/04/25 14:19) contraindicated Medication List - Last Reconciled 08/04/25 by Zac De Leon, MANAGER CABLE- albuterol sulfate 90 mcg/actuation 2 puffs inhalation Q6H PRN aripiprazole 10 mg PO DAILY 90 days aspirin 325 mg PO DAILY atorvastatin 40 mg PO BEDTIME blood sugar diagnostic ([employer] Verio test strips) check blood glucose tid ac and for hypo/hyperglycemic episodes cyclobenzaprine 10 mg PO BID PRN 20 days ferrous sulfate 324 mg PO BID fexofenadine-pseudoephedrine 60-120 mg ER (Sofi-D 12 Hour) 1 tab PO .QD PRN fluticasone propionate 50 mcg/actuation (Flonase Allergy Relief) 1 spray intranasal BID hydroxyzine pamoate (Vistaril) 25 mg PO BEDTIME hyoscyamine sulfate (Levsin/SL) 0.125 mg PO BID ibuprofen 800 mg PO Q6H PRN insulin degludec 16 units (0.16 mL) subcut BEDTIME lancets tid testing metformin 1,000 mg PO BID Myrbetriq ER (mirabegron) 50 mg PO DAILY 90 days NS pen needle, diabetic (Easy Touch) As directed to inject insulin once a day sertraline 150 mg (1.5 x 100 mg) PO DAILY suvorexant (Belsomra) 15 mg PO BEDTIME 30 days varenicline tartrate (Chantix Starting Month Box) PO PER PKG DIR varenicline tartrate (Chantix) 1 mg PO BID Tobacco use date assessed: 03/29/25 Dental Screening Dental Screen Date: 03/29/25 HPI 4m follow up HPI Details Chief Complaint The patient presents for diabetes follow-up and lab review. History of Present Illness The patient is a 55-year-old female presenting with diabetes management and lab review. Her most recent hemoglobin A1c was 7.2%, showing improvement from a previous level of 8.0%. She prefers no changes to her current diabetes medication regimen at this time. The patient has a history of thyroid dysfunction with a recent thyroid function test showing a slightly low level at 0.18. A repeat test is planned for the near future to monitor this condition. The patient has an elevated platelet count and has previously consulted hematology for this issue. In terms of preventative care, the patient has declined colon cancer screening but has agreed to undergo a mammogram, which she has not done in the past 10 years (refused previously). She also declined a low-dose CT scan of her lungs despite her smoking history, although she reports reducing her smoking to one cigarette per day. Social History - Tobacco use: Smokes one cigarette per day - Family status: Excited about new grandchild Health Maintenance - Mammogram: Patient agreed to undergo screening after 10 years - Colon cancer screening: Declined - Lung cancer screening: Declined low-dose CT scan Review of Systems - Respiratory: Denies dyspnea, denies cough, denies hemoptysis - Neurological: Denies neuropathy - General: Denies fever, denies chills Physical Exam General: Cooperative, healthy appearing, comfortable, no acute distress and well developed Orientation: Patient oriented x3 Limitations: No limitations Head: Normal to inspection Ears: Hearing grossly normal bilaterally Nose: Normal external nose present Face and sinus: Normal facial exam Eyes: Appearance normal, both eyes and all related structures Neck: Normal visual inspection and Yes full ROM Respiratory: Normal respiratory effort and able to speak in complete sentences. Faint crackles to bilaterally bases Cardiovascular: Regular rate and rhythm. Normal S1 and S2 GI: Normal to inspection. Soft to palpation and nontender Skin: No rashes or lesions noted Neuro: Patient oriented x3 Extremities: Normal to inspection, declined foot eam Results - Labs: Hemoglobin A1c 7.2%, Thyroid function test low at 0.18, Elevated platelet count Plan 1. Diabetes Mellitus The patient's diabetes is currently managed with medication, and she has shown improvement in her hemoglobin A1c, which is now 7.2% down from 8.0%. She prefers not to alter her current medication regimen. 2. Thyroid Dysfunction The patient has a slightly low thyroid function test result at 0.18, and a repeat test is planned to monitor this condition. 3. Elevated Platelet Count The patient has an elevated platelet count and has previously consulted hematology for this issue. 4. Preventative Care The patient has agreed to undergo a mammogram after 10 years but has declined colon cancer screening and a low-dose CT scan for lung cancer screening. Discussion Notes During the visit, we discussed the patient's diabetes management, noting the improvement in her hemoglobin A1c and her preference to maintain her current medication regimen. We also reviewed her thyroid function, which was slightly low, and planned for a repeat test. The patient was informed about her elevated platelet count, and her previous consultation with hematology was acknowledged. In terms of preventative care, we discussed the importance of a mammogram, which she agreed to undergo, and her decision to decline colon cancer screening and a low-dose CT scan for lung cancer screening was noted. Patient Instructions - Continue current diabetes medication regimen. - Schedule and complete a repeat thyroid function test. - Undergo a mammogram as planned. - Monitor for any new symptoms and report them promptly. [facility] Medical History Epilepsy History of CVA (cerebrovascular accident) Dawit's paralysis Frontal headache Thrombocytosis Iron deficiency anemia Diabetes Thyroid nodule Ulcerative colitis Nicotine dependence, cigarettes, uncomplicated Sinusitis, chronic Basal cell carcinoma Insomnia Nontraumatic incomplete tear of right rotator cuff Cervical neck pain with evidence of disc disease Surgical History History of cystoscopy History of abdominal hysterectomy History of tonsillectomy and adenoidectomy Family History Father Esophageal cancer Prostate CA Mental health disorder Mother Uterine cancer Depression Mental health disorder Maternal Grandmother Kidney problem Maternal Grandfather Diabetes mellitus Stroke Throat cancer Myocardial infarction Paternal Grandfather No problems noted. Paternal Grandmother No problems noted. Brother No problems noted. Sister Mental health disorder Daughter No problems noted. Daughter No problems noted. Social History Housing: House Alcohol intake: current Alcohol intake frequency: a few times a month Patient Tobacco Use Status: Current everyday Tobacco user e-Cigarette/Vaping Use: Currently Using Second Hand Smoke Exposure: No Substance Use Type: Marijuana service: No Current occupational status: disabled Cognitive needs: No Hearing needs: No Vision needs: No Questionnaire Thrive Questionnaire Date Thrive assessed: 12/16/24 I am a: Patient What is your living situation today?: I have a steady place to live Within the past 12 months, did the food you bought not last and you didn't have the money to get more?: Never true Within the past 12 months, did you worry whether your food would run out before you got money to buy more?: Never true Do you have trouble paying for medicines?: Yes Do you have trouble getting transportation to medical appointments?: Yes Do you have trouble paying your heating and electricity bill?: No Do you have trouble taking care of your child, family member or friend?: No Do you have trouble with day-to-day activities such as bathing, preparing meals, shopping, managing finances, etc.?: No Are you currently unemployed and looking for a job?: No Are you interested in more education?: No Please select the resources that you would like help with: Paying for medicine Currently or been in a relationship where the following occur: No concerns reported THRIVE Score: 1 MICAELA-7 AMB Questionnaire MICAELA-7 Date MICAELA - 7 assessed: 03/29/25 Source: Developed by Drs. Joss Gutierrez, Ami Hinton, Juan David Mercado and colleagues, with an educational emilie from [email or web address]. Physical exam (Primary Care) Vital Signs: Last Vital Signs Pulse 82 08/04/25 14:02 Resp 16 08/04/25 14:02 BP 120/72 08/04/25 14:02 Pulse Ox 98 08/04/25 14:02 Oxygen Delivery Method Room Air 08/04/25 14:02 BMI result Body Mass Index 26.6 Tobacco/Smoking Status: Tobacco use Status Tobacco use date assessed 03/29/25 08/04/25 14:06 Patient Tobacco Use Status Current everyday Tobacco 08/04/25 14:06 e-Cigarette/Vaping Use Currently Using 08/04/25 14:06 Thrive Assessment: Date of Thrive Assessment Date Thrive assessed 12/16/24 08/04/25 14:06 Currently or been in a relationship where the following occur: No concerns reported Coding Level of Care Code Est Pt Level 3 (40100) Diagnoses Low TSH level R79.89 Diabetes E11.9 Assessment & Plan Assessment & Plan (1) Low TSH level: Code(s): R79.89 - Other specified abnormal findings of blood chemistry Category: Medical (2) Diabetes: Code(s): E11.9 - Type 2 diabetes mellitus without complications Category: Medical Plan . Orders: Orders MM screening mammo BI Today Z12.31 - Encounter for screening mammogram for malignant neoplasm of breast TDaP Immunization Today Z23 - Encounter for immunization TSH reflex Free T4 Today R79.89 - Other specified abnormal findings of blood chemistry Medications: New Boostrix Tdap 0.5 mL IM ONCE 0.5 mL 0RF NS Z23 - Encounter for immunization Discontinued amoxicillin-pot clavulanate 875-125 mg Discontinued Reason: Doctor's Order 1 tab PO BID 10 days 20 tabs 0RF
== END 2025-08-04 15:03 | disposition home or self-care (01) ==
LOC: HO.HMCC 13:51
PROVIDERS: PCP Nurse Practitioner Family; Visit Provider Nurse Practitioner Family
DX: R79.89 Other specified abnormal findings of blood chemistry (principal); E11.9 Type 2 diabetes mellitus without complications; Z23 Encounter for immunization

== ENCOUNTER → 2025-08-04 13:50 | Outpatient (BNVA) | payer MEDICARE, SELFPAY | PROVIDERS: PCP Nurse Practitioner Family; Visit Provider Nurse Practitioner Family | DX: E11.9 Type 2 diabetes mellitus without complications (principal); R79.89 Other specified abnormal findings of blood chemistry; Z23 Encounter for immunization | CPT/HCPCS: 90471; 90715; 99212 ==

== ENCOUNTER 2025-09-02 09:37 | Outpatient (AMB) | payer MEDICARE, MEDICAID, SELFPAY ==
[2025-09-02 09:44] VITALS: BP 110/62; PULSE 68; RESP 16; TEMP 36.7; O2SAT 96; BMI 26.2
--- NOTE | 2025-09-02 09:44 | AM.OFFWIN_ITS ---
Intake Vital Signs 09/02/25 09:44 Height 5 ft 1 in Weight 138 lb 8 oz BMI 26.2 BP 110/62 Blood Pressure Location Rt brachial Position Sitting Respiration 16 Pulse 68 Pulse Source Pulse Oximeter Temp 98.1 F Pulse Oximetry (%) 96 Oxygen Delivery Method Room Air Intake Visit Reasons: EP Pain in left side of back, cough Intake Note: Pt coming in with left side back pain and cough x5wks Patient Tobacco Use Status: Former Tobacco user Surgical Services Director Required: No Accompanied by: Self / Same As Patient Allergies moxifloxacin (From Avelox) Allergy (Unknown, Verified 09/02/25 09:47) hives Sulfa (Sulfonamide Antibiotics) Allergy (Unknown, Verified 09/02/25 09:47) hives doxycycline Adverse Reaction (Unknown, Verified 09/02/25 09:47) contraindicated HPI HPI Comments History of Present Illness Details History - The patient is a 55 year old individua l presenting with multiple complaints. First, she has a sharp pain on her left mid back and shortness of breath. - Sharp pain has been present for about five weeks, with no relief from Tylenol, Motrin, or muscle relaxants. - The pain is not reproducible - The patient experienced a stomach upse t and vomited green phlegm earlier this week, with no associated fever. - Shortness of breath has been noted, pa rticularly when attempting to take deep breaths, and leads to anxiety. She has an inhaler she uses but it is almost empty. - She does have a history of asthma - She denies any episodes of choking or aspiration in the last 2 months. - She has a history of kidney stones but states the pain does not feel like a stone does. she denies any blood in her urine, pain with urination or increased frequency of urination. -She is also complaining of multiple epi sodes of passing out with loc for a few seconds, witnessed by her and daughter. - The patient reported immediately after these episodes, her daughter checks her BP and noticed it is usually low, 80/50's. She denies any chest pain, dizziness, lightheadedness immediately prior to the episode. It has happened a few times, randomly. The last time, she was closing the curtains in her living room, not exerting herself. - The patient has a history of seizure d isorder but denies recent seizure activity, states it didn't feel like a seizure, she did not lose control of her bladder or bowels during the episode. [facility] Medical History Epilepsy History of CVA (cerebrovascular accident) Dawit's paralysis Frontal headache Thrombocytosis Iron deficiency anemia Diabetes Thyroid nodule Ulcerative colitis Nicotine dependence, cigarettes, uncomplicated Sinusitis, chronic Basal cell carcinoma Insomnia Nontraumatic incomplete tear of right rotator cuff Cervical neck pain with evidence of disc disease Surgical History History of cystoscopy History of abdominal hysterectomy History of tonsillectomy and adenoidectomy Family History Father Esophageal cancer Prostate CA Mental health disorder Mother Uterine cancer Depression Mental health disorder Maternal Grandmother Kidney problem Maternal Grandfather Diabetes mellitus Stroke Throat cancer Myocardial infarction Paternal Grandfather No problems noted. Paternal Grandmother No problems noted. Brother No problems noted. Sister Mental health disorder Daughter No problems noted. Daughter No problems noted. Social History Housing: House Alcohol intake: current Alcohol intake frequency: a few times a month Patient Tobacco Use Status: Former Tobacco user e-Cigarette/Vaping Use: Currently Using Second Hand Smoke Exposure: No Substance Use Type: Marijuana service: No Current occupational status: disabled Cognitive needs: No Hearing needs: No Vision needs: No Review of Systems Narrative Review of Systems - Musculoskeletal: Reports sharp pain in the left leg for five weeks. - Gastrointestinal: Reports stomach upset with green phlegm earlier this week. Denies fever. - Respiratory: Reports shortness of breath, especially on deep inspiration. Denies wheezing. - Cardiovascular: Reports episodes of low blood pressure and brief loss of consciousness. - Neurological: Denies recent seizure activity despite history of seizure disorder. All systems reviewed and are unremarkable except as noted in HPI Physical Exam Exam Exam: Physical Exam General: Cooperative, healthy appearing, comfortable and no acute distress Orientation/consciousness: Patient oriented x3 Limitations: No limitations Head: Normal to inspection Ears: Hearing grossly normal bilaterally, external ears normal, EAC's normal bilaterally and TM's normal bilaterally Nose: Normal external nose present, Normal nares present and No nasal discharge present Face and sinus: Normal facial exam and sinuses tender Mouth: Normal oral and palatal mucosa present and moist mucous membranes Throat: tonsils normal, no exudates, uvula midline, posterior oropharynx erythema Eyes: Appearance normal, both eyes and all related structures Neck: Normal visual inspection, full ROM Respiratory: Clear to auscultation bilaterally. Normal respiratory effort, able to speak in complete sentences, actively coughing, no respiratory distress, not tachypneic, no tripod positioning and no use of accessory muscles Cardiovascular: Regular rate and rhythm. Normal S1 and S2 Skin: No rashes or lesions noted Neuro: Patient oriented x3 Extremities: Normal to inspection and Yes no clubbing, cyanosis or edema Back/spine: no TTP cervical, thoracic or lumbar spine, slightly + CVA left side, right side negative Vital Signs: Last Vital Signs Temp 98.1 F 09/02/25 09:44 Pulse 68 09/02/25 09:44 Resp 16 09/02/25 09:44 BP 110/62 09/02/25 09:44 Pulse Ox 96 09/02/25 09:44 Oxygen Delivery Method Room Air 09/02/25 09:44 BMI result Body Mass Index 26.2 Assessment & Plan Assessment & Plan (1) Acute thoracic back pain: Code(s): M54.6 - Pain in thoracic spine Plan: Plan Patient was informed and verbally consented to the use of an ambient scribe for clinic note documentation during this visit. - VSS, pt well appearing and PE unremarkable. - PNA vs kidney stone vs other - Will get CXR to rule out PNA. - Sent refill for albuterol inhaler (2) Syncopal episodes: Code(s): R55 - Syncope and collapse Qualifiers: Syncope type: unspecified Qualified Code(s): R55 - Syncope and collapse Plan: - Today, her HR and BP are both WNL, ? vasovagal - Monitor blood pressure closely and consider further cardiovascular evaluation if episodes continue. Will message her PCP for further workup. Orders: Orders XR chest 2V Today R05.9 - Cough, unspecified Medications: New albuterol sulfate 90 mcg/actuation 2 puffs inhalation Q6H PRN 8.5 grams 0RF Wheezing Coding Level of Care Code Est Pt Level 4 (42520) Diagnoses Acute thoracic back pain M54.6 Syncope, unspecified syncope type R55 Syncope type: unspecified
== END 2025-09-02 10:26 | disposition home or self-care (01) ==
PROVIDERS: PCP Nurse Practitioner Family; Visit Provider Physician Assistant
DX: M54.6 Pain in thoracic spine (principal); R55 Syncope and collapse

== ENCOUNTER 2025-09-02 09:37 | Outpatient (REF) | payer MEDICARE, MEDICAID, SELFPAY ==
--- NOTE | ~2025-09-02 | XR_ITS ---
EXAMINATION: XR CHEST CLINICAL INFORMATION: R05.9 - Cough, unspecified COMPARISON: Previous chest x-ray August 2024 TECHNIQUE: 2 views of the chest were obtained. FINDINGS: Lungs are clear. No consolidation or pulmonary edema. No pleural effusion or pneumothorax. Cardiac and mediastinal contours are stable. Mild curvature of the lower thoracic and upper lumbar spine to the right and degenerative change. XR/XR chest 2V IMPRESSION: No evidence for acute disease in the chest. Electronically signed by: Gena Brunson MD 09/02/2025 11:53 AM REGINA
== END 2025-09-02 09:38 | disposition home or self-care (01) ==
LOC: HO.HMGCX 09:37
PROVIDERS: PCP Nurse Practitioner Family; Visit Provider Physician Assistant
DX: M54.6 Pain in thoracic spine (principal); R05.9 Cough, unspecified; R55 Syncope and collapse
CPT/HCPCS: 71046; 99212

== ENCOUNTER → 2025-09-02 10:08 | Outpatient (BNV) | payer MEDICARE, MEDICAID, SELFPAY | PROVIDERS: PCP Nurse Practitioner Family; Visit Provider Radiology Diagnostic Radiology | DX: R05.9 Cough, unspecified (principal) | CPT/HCPCS: 71046 ==

== ENCOUNTER 2025-09-12 07:59 | Outpatient (REF) | payer MEDICARE, MEDICAID, SELFPAY ==
--- NOTE | ~2025-09-12 | US_ITS ---
CLINICAL HISTORY: M54.6 - Pain in thoracic spine Ultrasound of the left kidney Comparison: None provided Findings: Left kidney is normal in size and echogenicity, no apparent cortical thickening, 10.5 cm in length. Lobulated renal contour, same as before, probably congenital. No calculus, hydronephrosis or mass. No abnormal vascular flow. Impression: Normal left kidney. This document has been electronically signed by: Zena Wilson MD on 09/12/2025 13:30:29
--- OUTSIDE RECORDS SUMMARY | 2025-09-12 08:04 | XMS_ITS | Clinical Summary ---
Author Organization [facility] lin Address [address] [place] [address] Care Team Providers Care Mobile Health Vehicle Operator Name Role Phone Zac De Leon NP [...] TABLET BY MOUTH DAILY 08/24/20 24 Active hydrOXYzine (VISTARIL) 25 MG capsule 01/12/20 25 Active ferrous sulfate 324 mg (65 mg iron) TbEC TAKE 1 TABLET BY MOUTH TWICE DAILY 12/16/19 25 Active cyclobenzaprin e (FLEXERIL) 10 MG tablet 12/06/19 25 Active albuterol (PROVENTIL) 2.5 mg /3 mL (0.083 %) nebulizer solution Take 3 mL (2.5 mg total) by nebulization every 6 (six) hours as needed for wheezing Breathe as calmly, deeply and evenly as possible through mouth until no more mist is formed in the nebulizer chamber (about 5 to 15 minutes).. 75 mL 08/30/20 24 025 Active Problems Problem Noted Date Diagnosed Date Basal cell carcinoma of chest 02/23/2018 Basal cell carcinoma of skin of lip 11/17/2017 Current smoker 11/17/2017 Type 2 diabetes mellitus wit hout complication, without long-term current use of insulin 11/17/2017 Encounters Date Type Department Care Team Description 07/24/2025 6:50 AM EDT E-Visit [facility] [address] [place] [id number] Jodie Farias NP Gingival and periodontal disease (Primary Dx) from Last 3 Months Social History Tobacco Use Types Packs/Day Years Used Date Smoking Tobacco: Every Day Cigarettes 0.5 32.1 Started: 08/07/1993 Passive Smoke Exposure: Never Smokeless [...] ([facility]) (#[facility]) 1976 Diabetes: Retinopathy Screening 1981 Diabetes Care Foot Exam Scre ening: Yearly in adults with Diabetes (or HM Modifiers)([facility]) 1989 Diabetes Care: Kidney Health Evaluation Annually in adults aged 18 to 85 yrs (or HM Modifier)([facility]) 1989 Hepatitis C Virus Infection in Adolescents and Adults: Screening (or Modifier) ([facility]) 1989 DARIO Screening: Once using ST OP-BANG Questionnaire for Adults with Conditions or high BMI([facility]) 1989 SDOH Screening Reminder: Kamala marie for all adults ([facility]) 1989 DTaP/Tdap/Td Vaccines ([facility]) (1 - Tdap) 1990 Pneumococcal Vaccination Scr eening: Patients 50+ yrs of age ([facility]) (1 of 2 - PCV) 1990 Zoster/Shingles Vaccine Seri es Screening: Adults aged 18+ yrs (or HM Modifiers)([facility]) (1 of 2) 1990 Diabetes Care: Statin Therap y for adults with DM ages 21+ yrs old ([facility]) 1992 Colorectal Cancer Screening 45 -75 Yrs (or HM Modifier) 2016 Colorectal Cancer: FLEXIBLE SIGMOIDOSCOPY Screening every 5 yrs 2016 Colorectal Cancer: Fecal Imm unochemical Test (FIT) Annually [facility] 2016 Colorectal Cancer: High-sens itivity gFOBT Screening Annually [facility] 2016 Colorectal Cancer: Stool Col oguard Screening every 3 yrs 2016 Colorectal Cancer:CT Colonog priyank Screening every 5 yrs 2016 Breast Cancer: Screening Kamala marie age 50-74 yrs (or HM Modifier)([facility]) 2021 Flu Vaccination: Yearly for ages 18mos through 64 years (or Modifier)([facility]) 05/13/2025 Depression: Screening Annual ly using PHQ-2/9 in Adults 18 yrs or above (or HM Modifier)([facility]) 04/22/2026 04/22/2025 Tobacco Smoking Cessation: i n Adults excluding Women: Behavioral and Pharmacotherapy Interventions ([facility]) 07/24/2026 07/24/2025 Medical Devices Not on file Insurance MEDICARE Care Teams Mobile Health Vehicle Operator Relationship Specialty Start Date End Date Zac De Leon NP [address] [place] [address] PCP - General Family Medicine 11/08/24
== END 2025-09-12 08:00 | disposition home or self-care (01) ==
LOC: HO.US 07:59
PROVIDERS: PCP Nurse Practitioner Family; Visit Provider Physician Assistant
DX: M54.6 Pain in thoracic spine (principal); Z87.442 Personal history of urinary calculi
CPT/HCPCS: 76775

== ENCOUNTER → 2025-09-12 08:00 | Outpatient (BNV) | payer MEDICARE, MEDICAID, SELFPAY | PROVIDERS: PCP Nurse Practitioner Family; Visit Provider Radiology Diagnostic Radiology | DX: M54.6 Pain in thoracic spine (principal) | CPT/HCPCS: 76775 ==

== ENCOUNTER 2025-09-19 06:39 | Outpatient (AMB) | payer MEDICARE, MEDICAID, SELFPAY ==
--- OUTSIDE RECORDS SUMMARY | 2025-09-19 06:49 | XMS_ITS | Clinical Summary ---
Author Organization [facility] lin Address [address] [place] [address] Care Team Providers Care Home Energy Consultant Supervisor Name Role Phone Zac De Leon NP [...] Team Description 07/24/2025 6:50 AM EDT E-Visit [facility] [address] [place] [address] Jodie Farias NP Gingival and periodontal disease [...] aged 18 to 85 yrs (or HM Modifier)([facility]) 1989 Hepatitis C Virus Infection in Adolescents and Adults: Screening (or Modifier) ([facility]) 1989 DARIO Screening: Once using ST OP-BANG Questionnaire for Adults with Conditions or high BMI([facility]) 1989 SDOH Screening Reminder: Kamala marie for all adults ([facility]) 1989 DTaP/Tdap/Td Vaccines ([facility]) (1 - Tdap) 1990 Pneumococcal Vaccination Scr eening: Patients 50+ yrs of age ([facility]) (1 of 2 - PCV) 1990 Zoster/Shingles Vaccine Seri es Screening: Adults aged 18+ yrs (or HM Modifiers)([facility]) (1 of 2) 1990 Diabetes Care: Statin Therap y for adults with DM ages 21+ yrs old ([facility]) 1992 Colorectal Cancer Screening 45 -75 Yrs (or HM Modifier) 2016 Colorectal Cancer: FLEXIBLE SIGMOIDOSCOPY Screening every 5 yrs 2016 Colorectal Cancer: Fecal Imm unochemical Test (FIT) Annually [facility] 2016 Colorectal Cancer: High-sens itivity gFOBT Screening Annually [facility] 2016 Colorectal Cancer: Stool Col oguard Screening every 3 yrs 2016 Colorectal Cancer:CT Colonog priyank Screening every 5 yrs 2016 Breast Cancer: Screening Kamala marie age 50-74 yrs (or HM Modifier)([facility]) 2021 Flu Vaccination: Yearly for ages 18mos through 64 years (or Modifier)([facility]) 05/13/2025 Depression: Screening Annual ly using PHQ-2/9 in Adults 18 yrs or above (or HM Modifier)([facility]) 04/22/2026 04/22/2025 Tobacco Smoking Cessation: i n Adults excluding Women: Behavioral and Pharmacotherapy Interventions ([facility]) 07/24/2026 07/24/2025 Medical Devices Not on file Insurance MEDICARE Care Teams Home Energy Consultant Supervisor Relationship Specialty Start Date End Date Zac De Leon NP [address] [place] [address] PCP - General Family Medicine 11/08/24
--- NOTE | 2025-09-19 08:09 | MHC.PC.OV ---
Intake Visit Reasons: syncope f/u Allergies moxifloxacin (From Avelox) Allergy (Unknown, Verified 09/02/25 09:47) hives Sulfa (Sulfonamide Antibiotics) Allergy (Unknown, Verified 09/02/25 09:47) hives doxycycline Adverse Reaction (Unknown, Verified 09/02/25 09:47) contraindicated Tobacco use date assessed: 03/29/25 Dental Screening Dental Screen Date: 03/29/25 HPI syncope f/u HPI Details History of Present Illness The patient is a 55 year old female presenting with ongoing dizziness, particularly when bending over or standing up, suggestive of orthostatic hypotension. During episodes of dizziness, she has measured her systolic blood pressure in the 80s. She reports near-syncopal episodes where she almost blacks out and sometimes falls, but denies loss of consciousness. She has also noted her pulse to be in the 40s on a couple of occasions. The patient has a history of seizures and is on medication for it, but has not seen a neurologist for quite some time despite referrals having been placed. Regarding substance use, the patient has quit smoking for five weeks. She discontinued Chantix due to experiencing suicidal ideations as a side effect. For preventative care, she is scheduled to have a mammogram in the near future. Review of Systems - General: Reports no dizziness currently. - Neurological: Reports ongoing dizziness, especially with positional changes. - Reports near-syncopal episodes and falls without loss of consciousness. - Psychiatric: Reports history of suicidal ideations when taking Chantix. Plan for clinic note documentation during this visit. 1. Orthostatic Hypotension A 7-day Holter monitor is scheduled for tomorrow to evaluate for arrhythmias, given her reported bradycardia with a pulse in the 40s. She has been instructed to document any occurrences with exact dates and times. The patient will continue to monitor her blood pressure, especially during symptomatic episodes, and is advised to increase fluid intake. 2. History Of Seizures A referral to a neurologist will be arranged in the near future for further evaluation and management of her seizure history. 3. Tobacco Use Disorder The patient has successfully quit smoking for five weeks after stopping Chantix due to suicidal ideations. No new interventions were discussed. 4. Preventative Care The patient is scheduled for a mammogram in the near future. Discussion Notes I discussed with the patient her symptoms of dizziness, which appear to be related to orthostatic hypotension, as she has noted systolic blood pressures in the 80s during these episodes. We will proceed with a 7-day Holter monitor to investigate her reported bradycardia. I instructed her to increase her fluid intake and continue monitoring her blood pressure at home, especially when symptomatic. I also advised her to go to the emergency room for any worsening symptoms. Will have her send me BP values and keep me posted We discussed her history of seizures, and I informed her that I would be placing a referral for her to see a neurologist in the near future, as it has been some time since her last evaluation. I congratulated her on quitting smoking for five weeks and acknowledged that she stopped Chantix due to side effects. Patient Instructions - Drink more fluids. - Continue to take your blood pressure, especially when you do not feel right. - You will have a 7-day Holter monitor test starting tomorrow. Please write down the exact date and time of any symptoms you experience during the test. - Go to the emergency room if your symptoms get worse. - We will help you schedule an appointment with a neurologist soon. - You have an upcoming appointment for a mammogram. [facility] Medical History Epilepsy History of CVA (cerebrovascular accident) Dawit's paralysis Frontal headache Thrombocytosis Iron deficiency anemia Diabetes Thyroid nodule Ulcerative colitis Nicotine dependence, cigarettes, uncomplicated Sinusitis, chronic Basal cell carcinoma Insomnia Nontraumatic incomplete tear of right rotator cuff Cervical neck pain with evidence of disc disease Surgical History History of cystoscopy History of abdominal hysterectomy History of tonsillectomy and adenoidectomy Family History Father Esophageal cancer Prostate CA Mental health disorder Mother Uterine cancer Depression Mental health disorder Maternal Grandmother Kidney problem Maternal Grandfather Diabetes mellitus Stroke Throat cancer Myocardial infarction Paternal Grandfather No problems noted. Paternal Grandmother No problems noted. Brother No problems noted. Sister Mental health disorder Daughter No problems noted. Daughter No problems noted. Social History Housing: House Alcohol intake: current Alcohol intake frequency: a few times a month Patient Tobacco Use Status: Former Tobacco user e-Cigarette/Vaping Use: Currently Using Second Hand Smoke Exposure: No Substance Use Type: Marijuana service: No Current occupational status: disabled Cognitive needs: No Hearing needs: No Vision needs: No Questionnaire Thrive Questionnaire Date Thrive assessed: 12/16/24 I am a: Patient What is your living situation today?: I have a steady place to live Within the past 12 months, did the food you bought not last and you didn't have the money to get more?: Never true Within the past 12 months, did you worry whether your food would run out before you got money to buy more?: Never true Do you have trouble paying for medicines?: Yes Do you have trouble getting transportation to medical appointments?: Yes Do you have trouble paying your heating and electricity bill?: No Do you have trouble taking care of your child, family member or friend?: No Do you have trouble with day-to-day activities such as bathing, preparing meals, shopping, managing finances, etc.?: No Are you currently unemployed and looking for a job?: No Are you interested in more education?: No Please select the resources that you would like help with: Paying for medicine Currently or been in a relationship where the following occur: No concerns reported THRIVE Score: 1 MICAELA-7 AMB Questionnaire MICAELA-7 Date MICAELA - 7 assessed: 03/29/25 Source: Developed by Drs. Joss Gutierrez, Ami Hinton, Juan David Mercado and colleagues, with an educational emilie from [employer]. Physical exam (Primary Care) Tobacco/Smoking Status: Tobacco use Status Tobacco use date assessed 03/29/25 08/04/25 14:06 Patient Tobacco Use Status Former Tobacco user 09/02/25 09:51 e-Cigarette/Vaping Use Currently Using 08/04/25 14:06 Thrive Assessment: Date of Thrive Assessment Date Thrive assessed 12/16/24 08/04/25 14:06 Currently or been in a relationship where the following occur: No concerns reported Telehealth Telehealth Telehealth Platform: [facility] Location of provider rendering services: practice address Location of patient: address on file Patient Identification confirmed using: Name, : Yes Telehealth method: video Patient verbally consented to treatment: Yes Patient verbally consented to billing insurance company: Yes Patient informed of any privacy concerns related to visit: Yes Minutes spent on Phone/Video with Pt.: 15 Coding Level of Care Code Tele Est Pt Level 3 (05060) Diagnoses Syncope, unspecified syncope type R55 Syncope type: unspecified Seizures R56.9 Hypotension I95.9 Assessment & Plan Assessment & Plan (1) Syncopal episodes: Code(s): R55 - Syncope and collapse Category: Medical Qualifiers: Syncope type: unspecified Qualified Code(s): R55 - Syncope and collapse (2) Seizures: Code(s): R56.9 - Unspecified convulsions Category: Medical (3) Hypotension: Code(s): I95.9 - Hypotension, unspecified Category: Medical Plan . Orders: Referrals Neurology Referral G40.909 - Epilepsy, unspecified, not intractable, without status epilepticus, R42 - Dizziness and giddiness, R56.9 - Unspecified convulsions
== END 2025-09-19 09:54 | disposition home or self-care (01) ==
LOC: HO.HMCC 06:40
PROVIDERS: PCP Nurse Practitioner Family; Visit Provider Nurse Practitioner Family
DX: R55 Syncope and collapse (principal); R56.9 Unspecified convulsions; I95.9 Hypotension, unspecified

== ENCOUNTER 2025-09-20 10:52 | Outpatient (REF) | payer MEDICARE, MEDICAID, SELFPAY ==
--- NOTE | ~2025-09-20 | MM_ITS ---
EXAMINATION: MM SCREENING DIGITAL BREAST TOMOSYNTHESIS, BILATERAL CLINICAL INFORMATION: Screening. Asymptomatic. COMPARISON: February 03, 2017 TECHNIQUE: Digital breast tomosynthesis is performed in mediolateral oblique and craniocaudal views along with computer-aided detection (CAD). Synthesized 2D images are generated from the tomosynthesis. FINDINGS: BREAST COMPOSITION: The breasts are extremely dense, which lowers the sensitivity of mammography. BILATERAL BREASTS: No significant masses, suspicious calcifications or other abnormalities are seen in either breast. MM/MM tomosynthesis screening BI IMPRESSION: BILATERAL BREASTS: Negative, no mammographic evidence of malignancy. Normal interval follow-up is recommended in 12 months. ASSESSMENT: BI-RADS: Category 1: Negative RECOMMENDATION: Routine annual mammography screening. FOLLOW-UP: 1 year F/U This examination should not preclude the clinical evaluation of a suspicious palpable abnormality. This patient's information was entered into a reminder system with a target due date for their next mammogram. Electronically signed by: Celi Chua MD 09/20/2025 05:53 PM EST
== END 2025-09-20 10:53 | disposition home or self-care (01) ==
LOC: HO.MAMMO 10:52
PROVIDERS: PCP Nurse Practitioner Family; Visit Provider Nurse Practitioner Family
DX: Z12.31 Encounter for screening mammogram for malignant neoplasm of breast (principal); R55 Syncope and collapse
CPT/HCPCS: 77063; 77067; 93242

== ENCOUNTER → 2025-09-20 11:00 | Outpatient (BNV) | payer MEDICARE, MEDICAID, SELFPAY | PROVIDERS: PCP Nurse Practitioner Family; Visit Provider Radiology Body Imaging | DX: Z12.31 Encounter for screening mammogram for malignant neoplasm of breast (principal) | CPT/HCPCS: 77063; 77067 ==

== ENCOUNTER → 2025-09-20 11:28 | Outpatient (BNV) | payer MEDICARE, MEDICAID, SELFPAY | PROVIDERS: PCP Nurse Practitioner Family; Visit Provider Internal Medicine | DX: R55 Syncope and collapse (principal) | CPT/HCPCS: 93244 ==